=== PATIENT | female | born 1980 | race Caucasian/White ===

== ENCOUNTER 2020-05-31 22:38 | Emergency (ER) | payer SELFPAY ==
--- OUTSIDE RECORDS SUMMARY | 2020-05-31 22:40 | XMS REPORT | Continuity of Care Document ---
:1980 Author Organization [facility] t Address [address] [place] [address] Dr. Roy [address] [place] [id number] Care Team Providers Name Role Phone Unavailable Unavailable Unavailable Problems This patient has no known problems. Allergies, Adverse Reactions, Alerts This patient has no known allergies or adverse reactions. Medications This patient has no known medications. Procedures This patient has no known procedures. Results This patient has no known results.
[2020-05-31] MEDS ORDERED: METOPROLOL TARTRATE 5 MG/5 ML INJ IV ONE (23:15)
[2020-05-31 23:17] LABS: Absolute Lymphocytes (CBC) 2.6 K/uL (0.7-4.9); Basophils % 0.6 % (0-1.3); Hematocrit 34.6 % (36.0-45.0); Lymphocytes % 28.6 % (15.3-44.8); MPV 8.6 fL (7.6-11.3); RBC Red Blood Cell Count 4.75 M/uL (3.86-4.86)
[2020-05-31 23:18] LABS: Protime INR 0.98
[2020-05-31 23:34] LABS: ALT/SGPT 23 U/L (12-78); AST/SGOT 15 U/L (15-37); Albumin 3.6 g/dL (3.4-5.0); Alkaline Phosphatase 88 U/L (45-117); BUN Blood Urea Nitrogen 16 mg/dL (7-18); Bicarbonate 26 mmol/L (21-32); Bilirubin Direct < 0.1 mg/dL (0-0.2); Bilirubin Total 0.2 mg/dL (0.2-1.0); Glucose Level 101 mg/dL (74-106); Magnesium 2.1 mg/dL (1.8-2.4); NT PRO-BNP 128 pg/mL (<125); Potassium 3.5 mmol/L (3.5-5.1); Protein, Total 7.8 g/dL (6.4-8.2); Sodium Level 141 mmol/L (136-145); Troponin (Emerg Dept Use Only) 0.06 ng/mL (0.0-0.045)
[2020-05-31 23:42] LABS: Urine Blood 2+ (NEG); Urine Glucose NEGATIVE (NEG); Urine Protein NEGATIVE (NEG); Urine Specific Gravity 1.025 (1.005-1.030)
[2020-06-01] MEDS ORDERED: METOPROLOL TARTRATE 5 MG/5 ML INJ IV ONE ×2 (00:05→00:21)
--- NOTE | 2020-06-01 02:09 | ER ---
Nurse's Notes [facility] Name: Yas Bay Age: 39 yrs Sex: Female : 1980 Arrival Date: 05/31/2020 Time: 22:39 Bed 20 Private MD: Diagnosis: Chest pain. Headache. Hypertension Presentation: 05/31 22:45 Chief complaint: Patient states: Brook felt dizzy since this morning, It has just been sg getting worse. My blood pressure has been high today, I feel like Im going to pass out, Im just not doing very good. Denies N/V/D/Fever at this time. Coronavirus screen: Client denies travel out of the [place] in the last 14 days. At this time, the client does not indicate any symptoms associated with coronavirus-19. Ebola Screen: Patient negative for fever greater than or equal to 101.5 degrees Fahrenheit, and additional compatible Ebola Virus Disease symptoms Patient denies exposure to infectious person. Patient denies travel to an Ebola-affected area in the 21 days before illness onset. No symptoms or risks identified at this time. Initial Sepsis Screen: Does the patient meet any 2 criteria? No. Patient's initial sepsis screen is negative. Does the patient have a suspected source of infection? No. Patient's initial sepsis screen is negative. Risk Assessment: Do you want to hurt yourself or someone else? Patient reports no desire to harm self or others. Onset of symptoms was May 31, 2020. Care prior to arrival: None. Transition of care: patient was not received from another setting of care. 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 - Social history:: Smoking status: Patient denies any tobacco usage or history of. Screenin:11 Abuse screen: Denies threats or abuse. Denies injuries from another. Nutritional rr5 screening: No deficits noted. Tuberculosis screening: No symptoms or risk factors identified. Fall Risk IV access (20 points). Total Arnold Fall Scale indicates No Risk (0-24 pts). Assessment: 23:00 General: Appears in no apparent distress. uncomfortable, Behavior is calm, cooperative, rr5 appropriate for age. 23:00 Pain: Complains of pain in head Pain currently is 8 out of 10 on a pain scale. Quality rr5 of pain is described as aching, Pain began gradually, Is intermittent. Neuro: Level of Consciousness is awake, alert, obeys commands, Oriented to person, place, time, situation, Reports headache. Cardiovascular: Reports high BP Capillary refill < 3 seconds Patient's skin is warm and dry. Respiratory: Airway is patent Respiratory effort is even, unlabored, Respiratory pattern is regular, symmetrical. GI: No signs and/or symptoms were reported involving the gastrointestinal system. : No signs and/or symptoms were reported regarding the genitourinary system. EENT: No signs and/or symptoms were reported regarding the EENT system. Derm: Skin is intact, is healthy with good turgor, Skin temperature is warm. Musculoskeletal: Capillary refill < 3 seconds, Swelling present in right leg and left leg. 23:55 Reassessment: Patient appears in no apparent distress at this time. awaiting for CT rr5 result. 06/01 00:10 Reassessment: Patient appears in no apparent distress at this time. Patient is alert, rr5 oriented x 3, equal unlabored respirations, skin warm/dry/pink. 01:20 Reassessment: Patient appears in no apparent distress at this time. Patient is alert, rr5 oriented x 3, equal unlabored respirations, skin warm/dry/pink. awaiting for results. 02:25 Reassessment: Patient appears in no apparent distress at this time. Patient is alert, rr5 oriented x 3, equal unlabored respirations, skin warm/dry/pink. BP rechecked after walking to the hallway. ED provider aware with order made and carried out. 02:35 Reassessment: discharge instruction given and explained without complaints made. rr5 Vital Signs: 05/31 22:45 BP 214 / 139; Pulse 86; Resp 19; Temp 99.1; Pulse Ox 99% ; Weight 90.72 kg; Height 5 rr5 ft. 4 in. (162.56 cm); Pain 8/10; 23:41 BP 195 / 115; Pulse 80; Resp 18; Pulse Ox 98% ; rr5 06/01 00:10 BP 179 / 109; Pulse 84; Resp 17; Pulse Ox 99% ; rr5 00:47 BP 160 / 104; Pulse 75; Resp 16; Pulse Ox 99% ; rr5 02:25 BP 175 / 99; Pulse 70; Resp 19; Pulse Ox 99% ; rr5 02:36 BP 169 / 85; Pulse 76; Resp 16; Pulse Ox 98% ; rr5 05/31 22:45 Body Mass Index 34.33 (90.72 kg, 162.56 cm) rr5 ED Course: 05/31 22:39 Patient arrived in ED. am2 22:45 Urbano Cavanaugh MD is Attending Physician. pkl 22:45 Arm band placed on. sg 22:47 Triage completed. sg 22:51 Ravinder Jurado, MARK is Primary Nurse. rr5 23:02 Initial lab(s) drawn, by me, sent to lab. Inserted saline lock: 20 gauge in right jp3 antecubital area, using aseptic technique. Blood collected. Patient maintains SpO2 saturation greater than 95% on room air. 23:04 Bed in low position. Call light in reach. Side rails up X 1. Warm blanket given. Verbal jp3 reassurance given. 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 Pulse ox on. NIBP on. 23:40 Urine collected: clean catch specimen, clear, lucy colored. jp3 23:44 XRAY Chest (1 view) In Process Unspecified. EDMS 06/01 00:00 CT Head Brain wo Cont In Process Unspecified. EDMS 02:32 No provider procedures requiring assistance completed. IV discontinued, intact, rr5 bleeding controlled, No redness/swelling at site. Pressure dressing applied. Administered Medications: 05/31 23:11 Drug: Lopressor 5 mg Route: IVP; Site: left antecubital; rr5 23:50 Drug: Lopressor 5 mg {Note: BP 195/115 mmHg HR 80bpm.} Route: IVP; Site: left rr5 antecubital; 06/01 00:10 Drug: Lopressor 5 mg {Note: bp 179/109 HR 84bpm.} Route: IVP; Site: left antecubital; rr5 01:30 Follow up: Response: No adverse reaction; Blood pressure is lowered rr5 02:31 Drug: Metoprolol TARTRATE (Lopressor) 50 mg Route: PO; rr5 02:36 Follow up: Response: Medication administered at discharge. rr5 Point of Care Testing: Urine : 05/31 23:40 hCG Reading: Negative; Control Reading: Positive; jp3 Outcome: 06/01 02:08 Discharge ordered by . pkl 02:32 Discharged to home ambulatory, with family. rr5 02:32 Condition: stable 02:32 Discharge instructions given to patient, Instructed on discharge instructions, follow up and referral plans. medication usage, Demonstrated understanding of instructions, follow-up care, medications, Prescriptions given X 2. 02:36 Patient left the ED. rr5 Signatures: Dispatcher [employer] EDChemo Velez, RN RN Urbano Hampton MD MD pkl Moreno, Amanda am2 Conrado Evans jp3 Ravinder Jurado, RN RN rr5 Corrections: (The following items were deleted from the chart) 05/31 23:54 23:41 BP 155 / 67; Pulse 80bpm; Resp 18bpm; Pulse Ox 98%; rr5 rr5
--- NOTE | 2020-06-01 02:09 | EDPHYS ---
Physician Documentation [facility] Name: Yas Bay Age: 39 yrs Sex: Female : 1980 Arrival Date: 05/31/2020 Time: 22:39 Bed 20 Private MD: ED Physician Urbano Cavanaugh HPI: 05/31 23:19 This 39 yrs old Female presents to ER via Wheelchair with complaints of High pkl Blood Pressure, Feels like passing out. 23:19 The patient presents with lightheadedness. Onset: The symptoms/episode began/occurred pkl this morning. Associated signs and symptoms: Pertinent positives: headache, palpitations. 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 - Social history:: Smoking status: Patient denies any tobacco usage or history of. ROS: 23:19 Eyes: Negative for injury, pain, redness, and discharge, ENT: Negative for injury, pkl pain, and discharge, Neck: Negative for injury, pain, and swelling. 23:19 Cardiovascular: Positive for chest pain, palpitations. 23:19 Respiratory: Negative for cough, shortness of breath. 23:19 Abdomen/GI: Negative for abdominal pain, nausea, vomiting, and diarrhea. 23:19 Back: Negative for acute changes. 23:19 : Negative for urinary symptoms. 23:19 MS/extremity: Negative for acute changes. 23:19 Skin: Negative for rash. 23:19 Neuro: Positive for dizziness, headache. Exam: 23:19 Head/Face: Normocephalic, atraumatic. Eyes: Pupils equal round and reactive to light, pkl extra-ocular motions intact. Lids and lashes normal. Conjunctiva and sclera are non-icteric and not injected. Cornea within normal limits. Periorbital areas with no swelling, redness, or edema. ENT: Nares patent. No nasal discharge, no septal abnormalities noted. Tympanic membranes are normal and external auditory canals are clear. Oropharynx with no redness, swelling, or masses, exudates, or evidence of obstruction, uvula midline. Mucous membranes moist. Neck: Trachea midline, no thyromegaly or masses palpated, and no cervical lymphadenopathy. Supple, full range of motion without nuchal rigidity, or vertebral point tenderness. No Meningismus. Chest/axilla: Normal chest wall appearance and motion. Nontender with no deformity. No lesions are appreciated. Cardiovascular: Regular rate and rhythm with a normal S1 and S2. No gallops, murmurs, or rubs. Normal PMI, no JVD. No pulse deficits. Respiratory: Lungs have equal breath sounds bilaterally, clear to auscultation and percussion. No rales, rhonchi or wheezes noted. No increased work of breathing, no retractions or nasal flaring. Abdomen/GI: Soft, non-tender, with normal bowel sounds. No distension or tympany. No guarding or rebound. No evidence of tenderness throughout. Back: No spinal tenderness. No costovertebral tenderness. Full range of motion. Skin: Warm, dry with normal turgor. Normal color with no rashes, no lesions, and no evidence of cellulitis. MS/ Extremity: Pulses equal, no cyanosis. Neurovascular intact. Full, normal range of motion. Neuro: Awake and alert, GCS 15, oriented to person, place, time, and situation. Cranial nerves II-XII grossly intact. Motor strength 5/5 in all extremities. Sensory grossly intact. Cerebellar exam normal. Normal gait. Vital Signs: 22:45 BP 214 / 139; Pulse 86; Resp 19; Temp 99.1; Pulse Ox 99% ; Weight 90.72 kg; Height 5 rr5 ft. 4 in. (162.56 cm); Pain 8/10; 23:41 BP 195 / 115; Pulse 80; Resp 18; Pulse Ox 98% ; rr5 06/01 00:10 BP 179 / 109; Pulse 84; Resp 17; Pulse Ox 99% ; rr5 00:47 BP 160 / 104; Pulse 75; Resp 16; Pulse Ox 99% ; rr5 02:25 BP 175 / 99; Pulse 70; Resp 19; Pulse Ox 99% ; rr5 02:36 BP 169 / 85; Pulse 76; Resp 16; Pulse Ox 98% ; rr5 05/31 22:45 Body Mass Index 34.33 (90.72 kg, 162.56 cm) rr5 MDM: 05/31 22:45 Patient medically screened. pkl 06/01 02:03 Data reviewed: vital signs, nurses notes, lab test result(s), EKG, radiologic studies, pkl plain films. ED course: Patient feeling better. Discussed lab, EKG and X' rays results Advised to follow up with PCP in 1 to 2 weeks. Patient understood instructions. 05/31 22:59 Order name: Basic Metabolic Panel; Complete Time: 23:44 pkl 05/31 22:59 Order name: CBC with Diff; Complete Time: 23:44 pkl 05/31 22:59 Order name: LFT's; Complete Time: 23:44 pkl 05/31 22:59 Order name: Magnesium; Complete Time: 23:44 pkl 05/31 22:59 Order name: NT PRO-BNP; Complete Time: 23:44 pkl 05/31 22:59 Order name: PT-INR; Complete Time: 23:44 pkl 05/31 22:59 Order name: Troponin (emerg Dept Use Only); Complete Time: 23:44 pkl 05/31 22:59 Order name: XRAY Chest (1 view) pkl 05/31 22:59 Order name: CT Head Brain wo Cont pkl 05/31 23:39 Order name: Urine Dipstick--Ancillary (enter results); Complete Time: 23:44 tt3 05/31 23:39 Order name: Urine --Ancillary (enter results); Complete Time: 23:44 tt3 06/01 00:53 Order name: Troponin (emerg Dept Use Only); Complete Time: 01:59 pkl 05/31 22:59 Order name: EKG; Complete Time: 23:00 pkl 05/31 22:59 Order name: Cardiac monitoring; Complete Time: 23:11 pkl 05/31 22:59 Order name: EKG - Nurse/Tech; Complete Time: 23:11 pkl 05/31 22:59 Order name: IV Saline Lock; Complete Time: 23:11 pkl 05/31 22:59 Order name: Labs collected and sent; Complete Time: 23:11 pkl 05/31 22:59 Order name: O2 Per Protocol; Complete Time: 23:11 pkl 05/31 22:59 Order name: O2 Sat Monitoring; Complete Time: 23:11 pkl 06/01 00:53 Order name: EKG; Complete Time: 00:54 pkl Administered Medications: 05/31 23:11 Drug: Lopressor 5 mg Route: IVP; Site: left antecubital; rr5 23:50 Drug: Lopressor 5 mg {Note: BP 195/115 mmHg HR 80bpm.} Route: IVP; Site: left rr5 antecubital; 06/01 00:10 Drug: Lopressor 5 mg {Note: bp 179/109 HR 84bpm.} Route: IVP; Site: left antecubital; rr5 01:30 Follow up: Response: No adverse reaction; Blood pressure is lowered rr5 02:31 Drug: Metoprolol TARTRATE (Lopressor) 50 mg Route: PO; rr5 02:36 Follow up: Response: Medication administered at discharge. rr5 Point of Care Testing: Urine : 05/31 23:40 hCG Reading: Negative; Control Reading: Positive; jp3 Disposition: 06/01/20 02:08 Discharged to Home. Impression: Chest pain. Headache. Hypertension. - Condition is Stable. - Prescriptions for Lisinopril 20 mg Oral Tablet - take 1 tablet by ORAL route once daily; 30 tablet. Carvedilol 12.5 mg Oral Tablet - take 1 tablet by ORAL route 2 times per day with food; 60 tablet. - Medication Reconciliation Form, Thank You Letter, Antibiotic Education, Prescription Opioid Use form. - Follow up: Private Physician; When: 10 - 14 days; Reason: Re-evaluation by your physician. - Problem is new. - Symptoms have improved. Signatures: Dispatcher [employer] EDMS Chemo Martinez RN RN sg Lam, Pin, MD MD pkl Ravinder Jurado RN RN rr5 Corrections: (The following items were deleted from the chart) 06/01 02:36 02:08 06/01/2020 02:08 Discharged to Home. Impression: Chest pain. Headache. rr5 Hypertension. Condition is Stable. Forms are Medication Reconciliation Form, Thank You Letter, Antibiotic Education, Prescription Opioid Use. Follow up: Private Physician; When: 10 - 14 days; Reason: Re-evaluation by your physician. Problem is new. Symptoms have improved. pkl
[2020-06-01] MEDS ORDERED: METOPROLOL TAR 50 MG TAB ONE (02:34)
--- NOTE | 2020-06-01 08:27 | RAD REPORT ---
EXAM DESCRIPTION: RAD - Chest Single View - 05/31/2020 11:44 pm CLINICAL HISTORY: Elevated BP Chest pain. COMPARISON: No comparisons FINDINGS: Portable technique limits examination quality. The lungs are grossly clear. The heart is normal in size. No displaced fractures. IMPRESSION: No acute intrathoracic process suspected.
[2020-06-01 09:04] VITALS: TEMP 99.1
[2020-06-01 09:12] VITALS: BP 169/85; O2SAT 98
--- NOTE | 2020-06-01 10:19 | RAD REPORT ---
EXAM DESCRIPTION: Head Brain Wo Cont CLINICAL HISTORY: 39 years Female Dizziness;Headache COMPARISON: None TECHNIQUE: Contiguous axial images of the brain were obtained without the administration of intraven ous contrast.This exam was performed according to our departmental dose-optimization program which in cludes use of Automated Exposure Control, adjustment of the mA and/or kV according to patient size an d/or use of iterative reconstruction technique. DLP: 889 mGy*cm FINDINGS: Brain: No acute intracranial hemorrhage. No extra-axial collection. No mass effect or marshall iation. Mild prominence of the sulci and cisterns. Ventricles: Within normal limits in size. Globes and orbits: No acute abnormality. Bones: No acute osseous finding Paranasal sinuses: Paranasal sinuses are clear. Mastoid air cells: Well pneumatized. Soft tissues: Within normal limits IMPRESSION: No acute intracranial abnormality. Electronically signed by: Madi Ruiz DO 06/01/2020 12:29 AM APARTMENT COMMUNITY ASSISTANT MANAGER Due to temporary technical issues with the PACS/Fluency reporting system, reports are being signed by the in house radiologists without review as a courtesy to insure prompt reporting. The interpreting radiologist is fully responsible for the content of the report.
--- NOTE | 2020-06-01 12:04 | EKG ---
Test Date: 2020-05-31 Test Time: 23:05:13 Fabric Machine Operator: RR MEASUREMENT RESULTS: Intervals: Rate: 73 IN: 124 QRSD: 86 QT: 384 QTc: 423 [place]: P: 30 IN: 124 QRS: 63 T: 22 INTERPRETIVE STATEMENTS: Normal sinus rhythm Normal ECG No previous ECG available for comparison Electronically Signed On 06-01-20 12:03:03 INK BLENDER by Ganesh German
--- NOTE | 2020-06-01 12:04 | EKG ---
Test Date: 2020-06-01 Test Time: 00:57:07 Broadcast Meteorologist: RR MEASUREMENT RESULTS: Intervals: Rate: 70 [place]: 152 QRSD: 84 QT: 396 QTc: 427 [place]: P: 73 [place]: 152 QRS: 66 T: 42 INTERPRETIVE STATEMENTS: Normal sinus rhythm ST abnormality, possible digitalis effect Abnormal ECG Compared to ECG 05/31/2020 23:05:13 ST (T wave) deviation now present Electronically Signed On 06-01-20 12:03:02 SAW OFFBEARER by Ganesh German
== END 2020-06-01 02:36 | disposition home or self-care (01) ==
LOC: ER 22:38
DX: I10 Essential (primary) hypertension (principal); R07.9 Chest pain, unspecified
CPT/HCPCS: 36415; 70450; 71045; 80048; 80076; 81003; 81025; 83735; 83880; 84484; 85025; 85610; 93005; 96374; 99285

== ENCOUNTER 2020-10-15 21:05 | Emergency (ER) | payer SELFPAY ==
--- OUTSIDE RECORDS SUMMARY | 2020-10-15 21:07 | XMS REPORT | Continuity of Care Document ---
:1980 Author Organization [facility] t Address [address] [place] [address] Dr. Roy [address] [place] [id number] Care Team Providers Name Role Phone Unavailable Unavailable Unavailable Problems This patient has no known problems. Allergies, Adverse Reactions, Alerts This patient has no known allergies or adverse reactions. Medications This patient has no known medications. Procedures This patient has no known procedures. Results This patient has no known results.
[2020-10-15 21:56] LABS: Absolute Lymphocytes (CBC) 2.7 K/uL (0.7-4.9); Basophils % 0.7 % (0-1.3); Hematocrit 33.1 % (36.0-45.0); Lymphocytes % 28.6 % (15.3-44.8); MPV 8.5 fL (7.6-11.3); RBC Red Blood Cell Count 4.54 M/uL (3.86-4.86)
[2020-10-15] MEDS ORDERED: LABETALOL 20 MG/4ML SYRINGE IV ONE (22:06)
[2020-10-15] MEDS ORDERED: NA CHLORIDE 0.9% 100 ML ONE (22:06)
[2020-10-15 22:11] LABS: ALT/SGPT 27 U/L (12-78); AST/SGOT 12 U/L (15-37); Albumin 3.4 g/dL (3.4-5.0); Alkaline Phosphatase 79 U/L (45-117); BUN Blood Urea Nitrogen 16 mg/dL (7-18); Bicarbonate 24 mmol/L (21-32); Bilirubin Direct < 0.1 mg/dL (0-0.2); Bilirubin Total 0.1 mg/dL (0.2-1.0); Glucose Level 96 mg/dL (74-106); Magnesium 1.9 mg/dL (1.8-2.4); NT PRO-BNP 111 pg/mL (<125); Potassium 3.6 mmol/L (3.5-5.1); Protein, Total 7.5 g/dL (6.4-8.2); Sodium Level 139 mmol/L (136-145); Troponin (Emerg Dept Use Only) < 0.02 ng/mL (0.0-0.045)
[2020-10-15 22:12] LABS: Protime INR 1.02
[2020-10-15 22:20] LABS: Barbiturates NEGATIVE (NEGATIVE); Benzodiazepines NEGATIVE (NEGATIVE); Cocaine NEGATIVE (NEGATIVE); METHAMPHETAM NEGATIVE (NEGATIVE); Methadone NEGATIVE (NEGATIVE); Opiates NEGATIVE (NEGATIVE); Phencyclidine NEGATIVE (NEGATIVE); THC Cannibis NEGATIVE (NEGATIVE)
[2020-10-15 22:21] LABS: Urine Blood NEGATIVE (Negative); Urine Glucose NEGATIVE (Negative); Urine Protein NEGATIVE (NEG); Urine Specific Gravity >1.030 (1.005-1.030)
[2020-10-15] MEDS ORDERED: ASPIRIN 81 MG CHEWABLE TABLET ONE (23:23)
[2020-10-15] MEDS ORDERED: lisinopriL 20 MG TAB ONE (23:23)
[2020-10-15] MEDS ORDERED: HYDRALAZINE HCL 20 MG/ML VIAL ONE (23:52)
[2020-10-15] MEDS ORDERED: NA CHLORIDE 0.9% 1,000 ML ONE (23:52)
--- NOTE | 2020-10-16 01:17 | EDPHYS ---
Physician Documentation [facility] Name: Yas Bay Age: 39 yrs Sex: Female : 1980 Arrival Date: 10/15/2020 Time: 21:08 Bed 6 Private MD: ED Physician Nat Kwok HPI: 10/15 21:40 This 39 yrs old Female presents to ER via Ambulatory with complaints of High cp Blood Pressure. 21:40 The patient has elevated blood pressure and discovered this at home, with a home device.cp 21:40 Onset: The symptoms/episode began/occurred gradually, and became worse today. cp Associated signs and symptoms: Pertinent positives: chest pain, headache, tingling in hands and feet, shortness of breath. Severity of symptoms: At its worst the blood pressure was 220 mm Hg. Patient reports history of hypertension. Not currently taking any medications due to no family physician and/or insurance. Has been prescribed blood pressure medications from ED in the past. 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 - Social history:: Smoking status: Patient reports the use of cigarette tobacco products, denies chronic smoking, but will smoke occasionally. ROS: 21:44 Constitutional: Negative for body aches, chills, fever, poor PO intake. cp 21:44 Eyes: Negative for injury, pain, redness, and discharge. cp 21:44 ENT: Negative for ear pain. 21:44 Cardiovascular: Positive for chest pain, Negative for edema, palpitations. cp 21:44 Respiratory: Negative for cough, shortness of breath, wheezing. cp 21:44 Neuro: Positive for headache, Negative for altered mental status, syncope, weakness. 21:44 All other systems are negative. Exam: 21:46 ECG was reviewed by the Attending Physician. cp 21:50 Constitutional: The patient appears in no acute distress, alert, awake, cp non-diaphoretic, non-toxic, well developed, well nourished, obese. 21:50 Head/Face: Normocephalic, atraumatic. cp 21:50 Eyes: Periorbital structures: appear normal, Pupils: equal, round, and reactive to light and accomodation, Extraocular movements: intact throughout, Conjunctiva: normal, no exudate, no injection, Sclera: no appreciated abnormality, Lids and lashes: appear normal, bilaterally. 21:50 ENT: External ear(s): are unremarkable, Nose: is normal, Mouth: Lips: moist, Oral mucosa: moist, Posterior pharynx: Airway: no evidence of obstruction, patent. 21:50 Neck: ROM/movement: is normal, is supple, no range of motions limitations, no meningismus. 21:50 Chest/axilla: Inspection: normal, Palpation: is normal, no crepitus, no tenderness. 21:50 Cardiovascular: Rate: normal, Rhythm: regular, Heart sounds: murmur, not appreciated, cp Edema: is not appreciated. 21:50 Respiratory: the patient does not display signs of respiratory distress, Respirations: cp normal, no use of accessory muscles, no retractions, labored breathing, is not present, Breath sounds: are clear throughout, no decreased breath sounds. 21:50 Abdomen/GI: Inspection: abdomen appears normal, Palpation: abdomen is soft and non-tender, in all quadrants, rebound tenderness, is not appreciated, voluntary guarding, is not appreciated, involuntary guarding, is not appreciated. 21:50 Back: pain, is absent, ROM is normal. Vital Signs: 21:19 BP 211 / 126; Pulse 95; Resp 16; Temp 99.3; Pulse Ox 100% on R/A; Weight 90.72 kg; sg Height 5 ft. 3 in. (160.02 cm); 21:22 BP 211 / 126; Pulse 90; Resp 18; Temp 99.3; Pulse Ox 100% ; Weight 90.72 kg; Height 5 ll1 ft. 3 in. (160.02 cm); 22:00 BP 178 / 106; Pulse 75; Resp 16; Pulse Ox 100% on R/A; rv 23:00 BP 162 / 108; Pulse 72; Resp 16; Pulse Ox 100% ; rv 23:30 BP 170 / 109; Pulse 72; Resp 16; Pulse Ox 100% ; rv 10/16 00:53 BP 123 / 64; Pulse 92; Resp 18; Pulse Ox 100% on R/A; mg2 10/15 21:22 Body Mass Index 35.43 (90.72 kg, 160.02 cm) ll1 MDM: 10/15 21:24 Patient medically screened. cp 22:00 Differential diagnosis: hypertensive crisis, Malignant HTN, CVA, intracerebral cp hemorrhage. 10/16 01:07 Data reviewed: vital signs, nurses notes, lab test result(s), EKG, radiologic studies, cp CT scan, plain films. 01:07 Test interpretation: by ED physician or midlevel provider: ECG, chest xray negative for cp infiltrates. Counseling: I had a detailed discussion with the patient and/or guardian regarding: the historical points, exam findings, and any diagnostic results supporting the discharge/admit diagnosis, the presence of at least one elevated blood pressure reading (>120/80) during this emergency department visit, lab results, radiology results, the need for outpatient follow up, for definitive care, a family practitioner, to return to the emergency department if symptoms worsen or persist or if there are any questions or concerns that arise at home. Response to treatment: the patient's symptoms have markedly improved after treatment. 10/15 21:31 Order name: Basic Metabolic Panel; Complete Time: 22:21 mg2 10/15 22:54 Interpretation: Normal except: CL 108; CA 8.3. cp 10/15 21:31 Order name: CBC with Diff; Complete Time: 22:21 mg2 10/15 22:21 Interpretation: Normal except: HGB 10.8; HCT 33.1; MCV 72.9; MCH 23.8; RDW 17.1. cp 10/15 21:31 Order name: LFT's; Complete Time: 22:21 mg2 10/15 22:22 Interpretation: Normal except: AST 12; BILIT 0.1; GLOB 4.1; A/G 0.8. cp 10/15 21:31 Order name: Magnesium; Complete Time: 22:21 mg2 10/15 21:31 Order name: NT PRO-BNP; Complete Time: 22:21 mg2 10/15 21:31 Order name: PT-INR; Complete Time: 22:21 mg2 10/15 21:31 Order name: Troponin (emerg Dept Use Only); Complete Time: 22:21 mg2 10/15 23:28 Interpretation: Within normal limits: TROPED < 0.02. cp 10/15 21:31 Order name: XRAY Chest (1 view) mg2 10/15 21:31 Order name: EKG; Complete Time: 21:32 mg2 10/15 21:31 Order name: Cardiac monitoring; Complete Time: 21:40 mg2 10/15 21:31 Order name: EKG - Nurse/Tech; Complete Time: 21:40 mg2 10/15 21:31 Order name: IV Saline Lock; Complete Time: 21:40 mg2 10/15 21:32 Order name: EKG; Complete Time: 21:33 cp 10/15 21:32 Order name: UDS; Complete Time: 22:22 cp 10/15 21:32 Order name: CT Head Brain wo Cont cp 10/15 22:18 Order name: Urine Dipstick--Ancillary (enter results); Complete Time: 22:22 mw2 10/16 00:05 Order name: Troponin I; Complete Time: 01:04 cp 10/16 01:04 Interpretation: TROP < 0.02; Reviewed. cp 10/15 21:31 Order name: Labs collected and sent; Complete Time: 21:40 mg2 10/15 21:31 Order name: O2 Per Protocol; Complete Time: 21:40 mg2 10/15 21:31 Order name: O2 Sat Monitoring; Complete Time: 23:09 mg2 10/15 21:32 Order name: Cardiac monitoring; Complete Time: 21:44 cp 10/15 21:32 Order name: EKG - Nurse/Tech; Complete Time: 21:44 cp 10/15 21:32 Order name: IV Saline Lock; Complete Time: 21:47 cp 10/15 21:32 Order name: Labs collected and sent; Complete Time: 21:47 cp 10/15 21:32 Order name: O2 Per Protocol; Complete Time: 21:47 cp 10/15 21:32 Order name: O2 Sat Monitoring; Complete Time: 21:47 cp 10/15 21:32 Order name: Urine Test (obtain specimen); Complete Time: 21:54 cp 10/15 21:32 Order name: Urine Dipstick-Ancillary (obtain specimen); Complete Time: 21:54 cp 10/15 23:27 Order name: Blood Pressure Recheck; Complete Time: 23:29 cp EC/26 21:46 Rate is 78 beats/min. Rhythm is regular. ND interval is normal. QRS interval is normal. cp QT interval is normal. T waves are Inverted in lead aVR. Interpreted by me. Reviewed by me. Administered Medications: 21:57 Drug: Trandate 20 mg Route: IVP; Site: left antecubital; rv 10/16 01:42 Follow up: Response: No adverse reaction [facility] 10/15 23:08 Drug: Aspirin Chewable Tablet 324 mg Route: PO; 10/16 01:42 Follow up: Response: No adverse reaction [facility] 10/15 23:09 Drug: Lisinopril 20 mg Route: PO; 10/16 01:42 Follow up: Response: No adverse reaction [facility] 10/15 23:38 Drug: hydrALAZINE 5 mg Route: IV; Rate: calculated rate; Site: left antecubital; rv 10/16 01:41 Follow up: Response: No adverse reaction; IV Status: Completed infusion [facility] 10/15 23:39 Drug: NS 0.9% 1000 ml Route: IV; Rate: 1 bolus; Site: left antecubital; rv 10/16 01:42 Follow up: Response: No adverse reaction; IV Status: Completed infusion; IV Intake: mg2 1000ml Disposition: 05:47 Co-signature as Attending Physician, Nat Kwok MD. ma2 Disposition: 10/16/20 01:15 Discharged to Home. Impression: Hypertensive heart disease, Chest pain, unspecified, Headache. - Condition is Stable. - Discharge Instructions: Nonspecific Chest Pain, Hypertension, How to Take Your Blood Pressure, [place], Aspirin and Your Heart, Managing Your Hypertension. - Prescriptions for Lisinopril 20 mg Oral Tablet - take 1 tablet by ORAL route once daily; 20 tablet. Carvedilol 12.5 mg Oral Tablet - take 1 tablet by ORAL route 2 times per day with food; 60 tablet. - Medication Reconciliation Form, Thank You Letter, Antibiotic Education, Prescription Opioid Use form. - Follow up: Private Physician; When: 2 - 3 days; Reason: Recheck today's complaints. Signatures: Dispatcher [employer] EDMS Niko Mora PA PA cp Alzahri, Mohammad, MD MD ma2 Victor M Vasquez RN RN mg2 Brent Kirkland RN RN rv Nas Love RN RN ll1 Corrections: (The following items were deleted from the chart) 10/15 21:48 21:33 Chest Single View+RAD.RAD.BRZ ordered. EDMS EDMS 22:54 22:21 Normal except: CL 108. cp cp 10/16 01:42 01:15 10/16/2020 01:15 Discharged to Home. Impression: Hypertensive heart disease; mg2 Chest pain, unspecified; Headache. Condition is Stable. Discharge Instructions: Hypertension, Managing Your Hypertension. Prescriptions for Lisinopril 20 mg Oral Tablet - take 1 tablet by ORAL route once daily; 20 tablet, Carvedilol 12.5 mg Oral Tablet - take 1 tablet by ORAL route 2 times per day with food; 60 tablet. and Forms are Medication Reconciliation Form, Thank You Letter, Antibiotic Education, Prescription Opioid Use. Follow up: Private Physician; When: 2 - 3 days; Reason: Recheck today's complaints. cp
--- NOTE | 2020-10-16 01:43 | ER ---
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 L ll1 arm pain. Both hands/feet feel tingly. States the last time this happened she had a heart attack. Coronavirus screen: Client denies travel out of the [place] in the last 14 days. At this time, the client does not indicate any symptoms associated with coronavirus-19. Ebola Screen: Patient denies travel to an Ebola-affected area in the 21 days before illness onset. Initial Sepsis Screen: Does the patient meet any 2 criteria? No. Patient's initial sepsis screen is negative. Does the patient have a suspected source of infection? No. Patient's initial sepsis screen is negative. Risk Assessment: Do you want to hurt yourself or someone else? Patient reports no desire to harm self or others. Onset of symptoms was October 15, 2020. 21:22 Method Of Arrival: Ambulatory 1 21:22 Acuity: CRUZ 2 ll1 DIRECTOR FIXED INCOME: 10/16 01:41 lmp unknown mg2 Historical: - Allergies: 10/15 21:25 No Known Allergies; ll1 - PMHx: 21:25 Hypertension; Myocardial infarction; ll1 - Immunization history:: Flu vaccine is not up to date. - Social history:: Smoking status: Patient reports the use of cigarette tobacco products, denies chronic smoking, but will smoke occasionally. Screenin:41 Abuse screen: Denies threats or abuse. Denies injuries from another. Nutritional rv screening: No deficits noted. Tuberculosis screening: No symptoms or risk factors identified. Fall Risk None identified. Assessment: 21:40 General: Appears uncomfortable, Behavior is calm, cooperative. Pain: Complains of pain rv in chest. Neuro: Level of Consciousness is awake, alert, obeys commands, Oriented to person, place, time, situation. Cardiovascular: Patient's skin is warm and dry. Rhythm is regular. Respiratory: Airway is patent Respiratory effort is even, unlabored. Derm: Skin is intact. 10/16 00:53 Reassessment: Patient appears in no apparent distress at this time. Patient and/or mg2 family updated on plan of care and expected duration. Pain level reassessed. Patient is alert, oriented x 3, equal unlabored respirations, skin warm/dry/pink. Vital Signs: 10/15 21:19 BP 211 / 126; Pulse 95; Resp 16; Temp 99.3; Pulse Ox 100% on R/A; Weight 90.72 kg; sg Height 5 ft. 3 in. (160.02 cm); 21:22 BP 211 / 126; Pulse 90; Resp 18; Temp 99.3; Pulse Ox 100% ; Weight 90.72 kg; Height 5 ll1 ft. 3 in. (160.02 cm); 22:00 BP 178 / 106; Pulse 75; Resp 16; Pulse Ox 100% on R/A; rv 23:00 BP 162 / 108; Pulse 72; Resp 16; Pulse Ox 100% ; rv 23:30 BP 170 / 109; Pulse 72; Resp 16; Pulse Ox 100% ; rv 10/16 00:53 BP 123 / 64; Pulse 92; Resp 18; Pulse Ox 100% on R/A; mg2 10/15 21:22 Body Mass Index 35.43 (90.72 kg, 160.02 cm) ll1 ED Course: 10/15 21:08 Patient arrived in ED. cl3 21:22 Arm band placed on Patient placed in an exam room, on a stretcher. ll1 21:23 Niko Mora PA is PHCP. cp 21:23 Nat Kwok MD is Attending Physician. cp 21:24 Triage completed. ll1 21:30 Brent Kirkland, MARK is Primary Nurse. rv 21:40 Initial lab(s) drawn, by dc, sent to lab. Inserted saline lock: 20 gauge in left rv antecubital area, using aseptic technique. Blood collected. 21:41 Patient has correct armband on for positive identification. infection prevention coordinator on. Pulse rv ox on. NIBP on. 21:50 XRAY Chest (1 view) In Process Unspecified. EDMS 22:18 CT Head Brain wo Cont In Process Unspecified. EDMS 10/16 01:41 No provider procedures requiring assistance completed. IV discontinued, intact, mg2 bleeding controlled, No redness/swelling at site. Pressure dressing applied. Administered Medications: 10/15 21:57 Drug: Trandate 20 mg Route: IVP; Site: left antecubital; rv 10/16 01:42 Follow up: Response: No adverse reaction mg2 10/15 23:08 Drug: Aspirin Chewable Tablet 324 mg Route: PO; rv 10/16 01:42 Follow up: Response: No adverse reaction mg2 10/15 23:09 Drug: Lisinopril 20 mg Route: PO; rv 10/16 01:42 Follow up: Response: No adverse reaction mg2 10/15 23:38 Drug: hydrALAZINE 5 mg Route: IV; Rate: calculated rate; Site: left antecubital; rv 10/16 01:41 Follow up: Response: No adverse reaction; IV Status: Completed infusion mg2 10/15 23:39 Drug: NS 0.9% 1000 ml Route: IV; Rate: 1 bolus; Site: left antecubital; rv 10/16 01:42 Follow up: Response: No adverse reaction; IV Status: Completed infusion; IV Intake: mg2 1000ml Intake: 01:42 IV: 1000ml; Total: 1000ml. mg2 Outcome: 01:15 Discharge ordered by . cp 01:41 Discharged to home ambulatory. mg2 01:41 Condition: stable 01:41 Discharge instructions given to patient, Instructed on discharge instructions, follow up and referral plans. medication usage, Demonstrated understanding of instructions, follow-up care, medications, Prescriptions given X 2. 01:42 Patient left the ED. mg2 Signatures: Dispatcher [employer] EDMS Chemo Martinez RN Niko Mo PA PA cp Victor M Vasquez RN RN mg2 Brent Kirkland RN RN rv Nora Love cl3 Nas Love RN RN ll1
--- NOTE | 2020-10-16 09:18 | RAD REPORT ---
EXAM DESCRIPTION: Mala Single View10/15/2020 9:52 pm CLINICAL HISTORY: Chest pain COMPARISON: 2019 FINDINGS: The lungs appear clear of acute infiltrate. The heart is normal size IMPRESSION: No acute abnormalities displayed
--- NOTE | 2020-10-16 11:12 | EKG ---
Test Date: 2020-10-15 Test Time: 21:36:34 Senior Counsel: LUCIEN MEASUREMENT RESULTS: Intervals: Rate: 78 TX: 132 QRSD: 82 QT: 378 QTc: 430 [place]: P: 58 TX: 132 QRS: 59 T: 34 INTERPRETIVE STATEMENTS: Normal sinus rhythm Cannot rule out Anterior infarct, age undetermined Abnormal ECG Compared to ECG 06/01/2020 00:57:07 Myocardial infarct finding now present ST (T wave) deviation no longer present Electronically Signed On 10-16-20 11:11:06 CDT by Ganesh German
[2020-10-16 18:08] VITALS: TEMP 99.3; O2SAT 100
[2020-10-16 18:16] VITALS: BP 123/64
--- NOTE | 2020-10-16 18:52 | RAD REPORT ---
EXAM DESCRIPTION: CT - Head Brain Wo Cont - 10/16/2020 6:33 am CLINICAL HISTORY: 39-year-old female with hypertension and headache. COMPARISON: 05/31/2020. TECHNIQUE: CT brain without contrast. This exam was performed according to our departmental dose opt imization program which includes use of automated exposure control, adjustment of the mA and/or kV ac cording to patient size and/or use of iterative reconstruction technique. FINDINGS: The ventricles, sulci, and cisterns are within normal limits. The aparicio-white matter diff erentiation is preserved. There is no mass effect, midline shift, intra- or extra-axial fluid colle ction/acute hemorrhage. The osseous structures are unremarkable. The paranasal sinuses and mastoi d air cells are clear. IMPRESSION: No acute intracranial abnormalities. Electronically signed by: Louise Jansen MD 10/15/2020 10:42 PM CDT Due to temporary technical issues with the PACS/Fluency reporting system, reports are being signed by the in house radiologists without review as a courtesy to insure prompt reporting. The interpreting radiologist is fully responsible for the content of the report.
== END 2020-10-16 01:42 | disposition home or self-care (01) ==
LOC: ER 21:05
DX: I11.9 Hypertensive heart disease without heart failure (principal); R51.9 Headache, unspecified; I10 Essential (primary) hypertension; F17.210 Nicotine dependence, cigarettes, uncomplicated
CPT/HCPCS: 36415; 70450; 71045; 80048; 80076; 80307; 81003; 83735; 83880; 84484; 85025; 85610; 93005; 96365; 96366; 96375; 99284; J0360; J7030

== ENCOUNTER 2021-07-22 15:27 | Emergency (ER) | payer SELFPAY ==
--- OUTSIDE RECORDS SUMMARY | 2021-07-22 15:30 | XMS REPORT | Continuity of Care Document ---
:1980 Author Organization [facility] t Address [address] [place] [address] [address] [place] [address] Care Team Providers Name Role Phone PCP, DOES NOT HAVE A Primary Care Physician Unavailable Laine KOCH Attending Clinician Unavailable Laine KOCH Admitting Clinician Unavailable Problems This patient has no known problems. Allergies, Adverse Reactions, Alerts Allergy Allergy Status Severity Reaction(s) Onset Inactive Treating Comm ents Source Name Type Date Date Clinician NO KNOWN Drug Active [facility] CARLOS [facility] Medications This patient has no known medications. Procedures This patient has no known procedures. Encounters Start End Encounter Admission Attending Care Care Encounter Source Date/Time Date/Time Type Type Clinicians Facility Department ID 2019-07-31 2019-07-31 Emergency X LANDON KOCH ERT [id number] [facility] 18:23:56 20:48:[address] [facility] Results This patient has no known results.
--- NOTE | 2021-07-22 16:48 | RAD REPORT ---
EXAM DESCRIPTION: RAD - Chest Pa And Lat (2 Views) - 07/22/2021 4:14 pm CLINICAL HISTORY: Cough;Dyspnea COMPARISON: October 15 TECHNIQUE: Frontal and lateral views of the chest were obtained. FINDINGS: The lungs are clear. Interstitial pattern matches comparison. Heart size is normal and ce ntral vasculature is within normal limits. No pleural effusion or pneumothorax seen. No acute bony finding noted. No aortic abnormality. IMPRESSION: No acute cardiopulmonary process. No significant change from comparison study.
[2021-07-22] MEDS ORDERED: cloNIDine HCL 0.1 MG TAB ONE (17:25)
[2021-07-22] MEDS ORDERED: IBUPROFEN 400 MG TAB ONE (17:26)
[2021-07-22 17:50] LABS: Absolute Lymphocytes (CBC) 0.4 K/uL (0.7-4.9); Hematocrit 30.6 % (36.0-45.0); Lymphocytes % 4.4 % (15.3-44.8); MPV 8.3 fL (7.6-11.3); RBC Red Blood Cell Count 4.41 M/uL (3.86-4.86)
[2021-07-22 18:00] LABS: Potassium 3.8 mmol/L (3.5-5.1); Troponin (Emerg Dept Use Only) 0.04 ng/mL (0.0-0.045)
[2021-07-22 19:24] LABS: SARS-COV-2 RT PCR POSITIVE (NEGATIVE)
[2021-07-22 19:32] LABS: Blood Morphology Comment NOTED (NOT SEEN); Platelet Estimate ADEQ; White Blood Cell Scan OK (OK)
--- NOTE | 2021-07-22 20:20 | ER ---
Nurse's Notes [facility] Name: Yas Bay Age: 40 yrs Sex: Female : 1980 Arrival Date: 07/22/2021 Time: 15:29 Bed DIS4 Private MD: Diagnosis: Coronavirus infection, unspecified;Essential (primary) hypertension Presentation: 07/22 15:46 Chief complaint: Patient states: cough, fever, chills, body aches and SOB "I feel like eo2 I can't breathe" onset today. Pt denies chest pain, states "I can't catch my breath when I'm talking". Coronavirus screen: Vaccine status: Patient reports being unvaccinated. Client denies travel out of the [place] in the last 14 days. Ebola Screen: Patient negative for fever greater than or equal to 101.5 degrees Fahrenheit, and additional compatible Ebola Virus Disease symptoms Patient denies exposure to infectious person. Patient denies travel to an Ebola-affected area in the 21 days before illness onset. No symptoms or risks identified at this time. Initial Sepsis Screen: Does the patient meet any 2 criteria? No. Patient's initial sepsis screen is negative. Does the patient have a suspected source of infection? No. Patient's initial sepsis screen is negative. Risk Assessment: Do you want to hurt yourself or someone else? Patient reports no desire to harm self or others. Onset of symptoms was July 22, 2021. 15:46 Method Of Arrival: Ambulatory eo2 15:46 Acuity: CRUZ 3 eo2 Triage Assessment: 15:52 General: Appears uncomfortable, Behavior is calm, cooperative. Pain: Complains of pain eo2 in headache and neck pain, "my body". Cardiovascular: Reports shortness of breath, Denies chest pain. Historical: - Allergies: 15:52 No Known Allergies; eo2 - PMHx: 15:52 Hypertension; Myocardial infarction; eo2 - Immunization history:: Adult Immunizations up to date, Client reports having NOT received the Covid vaccine. Flu vaccine is not up to date. - Social history:: Smoking status: Patient reports the use of cigarette tobacco products, 1 pack/week, Patient uses alcohol, occasionally. Screenin:00 Abuse screen: Denies threats or abuse. Nutritional screening: No deficits noted. bb Tuberculosis screening: No symptoms or risk factors identified. Fall Risk None identified. Assessment: 20:00 General: Appears in no apparent distress. Behavior is calm, cooperative. General: pt bb seen by this RN at discharge. Neuro: Level of Consciousness is awake, alert, obeys commands, Oriented to person, place, time, situation. Vital Signs: 15:46 BP 179 / 121; Pulse 117; Resp 17; Temp 100.3; Pulse Ox 100% ; Weight 90.72 kg; Height 5 eo2 ft. 3 in. (160.02 cm); Pain 9/10; 15:56 BP 172 / 116; Pulse 109; Resp 17; Pulse Ox 100% ; eo2 18:38 Pulse 95; Resp 16 S; Pulse Ox 98% on R/A; mb4 18:43 Temp 99.2(O); bp 20:54 BP 141 / 78; Pulse 95; Resp 18; Temp 97.9; Pulse Ox 98% on R/A; tt3 15:46 Body Mass Index 35.43 (90.72 kg, 160.02 cm) eo2 15:46 "my head hurts so bad, my neck is so stiff" per pt eo2 ED Course: 15:29 Patient arrived in ED. ds1 15:49 [facility]tr[facility]C [facility] kb 15:49 Jaylen Arias MD is Attending Physician. kb 15:52 Triage completed. eo2 16:14 Chest Pa And Lat (2 Views) XRAY In Process Unspecified. EDMS 17:38 Initial lab(s) drawn, by me, sent to lab. COVID swab sent to lab. Flu and/or RSV swab mb4 sent to lab. Inserted 22G LAC. blood collected. IV removed due to infiltration. 17:40 Basic Metabolic Panel Sent. mb4 17:40 CBC with Automated Diff Sent. mb4 17:40 Troponin (Emerg Dept Use Only) Sent. mb4 17:40 CBC with Diff Sent. mb4 17:40 Basic Metabolic Panel Sent. mb4 17:40 Troponin (emerg Dept Use Only) Sent. mb4 17:44 EKG done, by ED staff, reviewed by Radha MAST. dh3 20:00 No provider procedures requiring assistance completed. Patient did not have IV access bb during this emergency room visit. Patient maintains SpO2 saturation greater than 95% on room air. 20:00 Patient has correct armband on for positive identification. bb Administered Medications: 17:28 Drug: Ibuprofen 800 mg Route: PO; eo2 19:00 Follow up: Response: No adverse reaction eo2 17:28 Drug: cloNIDine 0.2 mg Route: PO; eo2 19:00 Follow up: Response: No adverse reaction eo2 Outcome: 20:00 Discharged to home ambulatory. bb 20:00 Condition: stable 20:00 Discharge instructions given to patient, Instructed on discharge instructions, follow up and referral plans. Demonstrated understanding of instructions, follow-up care. 20:19 Discharge ordered by . kb 21:28 Patient left the ED. bb Signatures: Dispatcher [employer] EDMS Radha Beltran, TROLLEY COACH DRIVER-C TROLLEY COACH DRIVER-Anuelb Nisreen Winslow ds1 Heather Mejía, RN RN bb Vanessa Luis dh3 Niles Lal RN RN bp Tamia French mb4 Bogdan Gilbert tt3 Cher Nobles RN RN eo2 Corrections: (The following items were deleted from the chart) 18:15 17:40 Influenza Screen (A \\T\\ B)+BA.LAB.BRZ drawn and sent. mb4 EDMS 18:16 17:40 CORONAVIRUS+MR.LAB.BRZ drawn and sent. mb4 EDMS
--- NOTE | 2021-07-22 20:20 | EDPHYS ---
Physician Documentation [facility] Name: Yas Bay Age: 40 yrs Sex: Female : 1980 Arrival Date: 07/22/2021 Time: 15:29 Bed DIS4 Private MD: ED Physician Jaylen Arias HPI: 07/22 15:50 This 40 yrs old Female presents to ER via Unassigned with complaints of Chest Pain, kb Fever, Shortness Of Breath. 15:50 The patient or guardian reports cough, that is intermittent, described as mild, flu kb symptoms, low-grade fever, myalgias. Onset: The symptoms/episode began/occurred today. Severity of symptoms: At their worst the symptoms were moderate, in the emergency department the symptoms are unchanged. Modifying factors: The symptoms are alleviated by nothing, the symptoms are aggravated by nothing. Associated signs and symptoms: Pertinent positives: fever, Pertinent negatives: chest pain, diarrhea, ear ache, nausea, rhinorrhea, sore throat, vomiting. The patient has not experienced similar symptoms in the past. The patient has not recently seen a physician. Pt reports fever, chills, shortness of breath, cough and headache that started today. Denies chest pain. States it just feels like she cannot take a deep breath. Historical: - Allergies: 15:52 No Known Allergies; eo2 - PMHx: 15:52 Hypertension; Myocardial infarction; eo2 - Immunization history:: Adult Immunizations up to date, Client reports having NOT received the Covid vaccine. Flu vaccine is not up to date. - Social history:: Smoking status: Patient reports the use of cigarette tobacco products, 1 pack/week, Patient uses alcohol, occasionally. ROS: 15:52 Cardiovascular: Negative for chest pain, palpitations, and edema. kb 15:52 Constitutional: Positive for body aches, chills, fatigue, fever, malaise. 15:52 Respiratory: Positive for cough, shortness of breath, Negative for dyspnea on exertion, hemoptysis, orthopnea, pleurisy, sputum production, wheezing. 15:52 Neuro: Positive for headache. 15:52 All other systems are negative. Exam: 15:52 Constitutional: This is a well developed, well nourished patient who is awake, alert, kb and in no acute distress. Head/Face: Normocephalic, atraumatic. ENT: Moist Mucous membranes Cardiovascular: Regular rate and rhythm with a normal S1 and S2. No gallops, murmurs, or rubs. No pulse deficits. Respiratory: Respirations even and unlabored. No increased work of breathing. Talking in full sentences Skin: Warm, dry with normal turgor. Normal color. MS/ Extremity: Pulses equal, no cyanosis. Neurovascular intact. Full, normal range of motion. Neuro: Awake and alert, GCS 15, oriented to person, place, time, and situation. Moves all extremities. Normal gait. Psych: Awake, alert, with orientation to person, place and time. Behavior, mood, and affect are within normal limits. 17:44 ECG was reviewed by the Attending Physician. kb Vital Signs: 15:46 BP 179 / 121; Pulse 117; Resp 17; Temp 100.3; Pulse Ox 100% ; Weight 90.72 kg; Height 5 eo2 ft. 3 in. (160.02 cm); Pain 9/10; 15:56 BP 172 / 116; Pulse 109; Resp 17; Pulse Ox 100% ; eo2 18:38 Pulse 95; Resp 16 S; Pulse Ox 98% on R/A; mb4 18:43 Temp 99.2(O); bp 20:54 BP 141 / 78; Pulse 95; Resp 18; Temp 97.9; Pulse Ox 98% on R/A; tt3 15:46 Body Mass Index 35.43 (90.72 kg, 160.02 cm) eo2 15:46 "my head hurts so bad, my neck is so stiff" per pt eo2 MDM: 15:52 Data reviewed: vital signs, nurses notes. Data interpreted: Pulse oximetry: on room air kb is 100 %. Interpretation: normal. 15:53 Patient medically screened. kb 20:19 Counseling: I had a detailed discussion with the patient and/or guardian regarding: the kb historical points, exam findings, and any diagnostic results supporting the discharge/admit diagnosis, lab results, radiology results, the need for outpatient follow up, a family practitioner, to return to the emergency department if symptoms worsen or persist or if there are any questions or concerns that arise at home. 07/22 16:24 Order name: CBC with Diff kb 07/22 16:24 Order name: Basic Metabolic Panel kb 07/22 16:24 Order name: Troponin (emerg Dept Use Only) kb 07/22 16:24 Order name: CBC with Automated Diff; Complete Time: 19:42 EDMS 07/22 15:50 Order name: Chest Pa And Lat (2 Views) XRAY; Complete Time: 16:52 kb 07/22 16:24 Order name: EKG; Complete Time: 16:25 kb 07/22 16:24 Order name: Basic Metabolic Panel; Complete Time: 18:03 EDMS 07/22 16:24 Order name: Troponin (Emerg Dept Use Only); Complete Time: 18:03 EDMS 07/22 18:16 Order name: COVID-19/FLU A+B; Complete Time: 19:24 EDMS 07/22 19:32 Order name: CBC Smear Scan; Complete Time: 19:42 EDMS 07/22 16:24 Order name: EKG - Nurse/Tech; Complete Time: 17:44 kb 07/22 19:42 Order name: Vital Signs; Complete Time: 20:28 kb EC:44 Rate is 100 beats/min. Rhythm is regular. QRS [place] is Normal. VT interval is normal at kb 140 msec. QRS interval is normal at 84 msec. QT interval is normal at 344 msec. Administered Medications: 17:28 Drug: Ibuprofen 800 mg Route: PO; eo2 19:00 Follow up: Response: No adverse reaction eo2 17:28 Drug: cloNIDine 0.2 mg Route: PO; eo2 19:00 Follow up: Response: No adverse reaction eo2 Disposition Summary: 07/22/21 20:19 Discharge Ordered Location: Home kb Condition: Stable kb Diagnosis - Coronavirus infection, unspecified kb - Essential (primary) hypertension kb Followup: kb - With: Emergency Department - When: As needed - Reason: Worsening of condition Followup: kb - With: Private Physician - When: 2 - 3 days - Reason: Recheck today's complaints, Continuance of care, Re-evaluation by your physician Discharge Instructions: - Discharge Summary Sheet kb - Viral Respiratory Infection, [id number] kb - COVID-19 kb Forms: - Medication Reconciliation Form kb - Thank You Letter kb - Antibiotic Education kb - Prescription Opioid Use kb Addendum: 07/26/2021 07:04 Co-signature as Attending Physician, Jaylen Arias MD. r n Signatures: Dispatcher [employer] EDRadha Sheffield FNP-C THEATRICAL DRESSER-Ckb Jaylen Arias MD MD rn OwoadCher mcdonough RN RN eo2 Corrections: (The following items were deleted from the chart) 07/22 15:52 15:50 Pt reports fever, chills, shortness of breath, cough and headache that started kb today. . kb 18:15 15:50 Influenza Screen (A \\T\\ B)+BA.LAB.BRZ ordered. EDMS EDMS 18:16 15:50 CORONAVIRUS+MR.LAB.BRZ ordered. EDMS EDMS
[2021-07-22 21:44] VITALS: O2SAT 98
[2021-07-22 21:47] VITALS: BP 141/78; TEMP 97.9
== END 2021-07-22 21:28 | disposition home or self-care (01) ==
LOC: ER 15:27
DX: U07.1 COVID-19 (principal); I10 Essential (primary) hypertension; F17.210 Nicotine dependence, cigarettes, uncomplicated
CPT/HCPCS: 0240U; 36415; 71046; 80048; 84484; 85025; 93005; 99284

== ENCOUNTER 2023-11-03 22:42 | Emergency (ER) | payer OTHER, SELFPAY ==
--- OUTSIDE RECORDS SUMMARY | 2023-11-03 22:50 | XMS REPORT | Continuity of Care Document ---
Author Name Unknown Address [address] [facility] [address] [place] [address] [facility] Address [address] [facility] [address] [place] [address] Care Team Providers Care Extras Casting Director Name Role Phone Pcp, Patient Does Not Have A Primary Care Physic mic Rachel Santana MD Attending Clinician [phone] Doctor Unassigned, [place] Attending Clinician U JOMAR Edwards Attending Clinician Unavailable Jomar Moyer MD Attending Clinician [phone] REBECA FELIZ Attending Clinician Unavailable Rebeca Guerra Attending Clinician [phone] Priya Arauz Attending Clinician [phone] Unknown, Attending Attending Clinician Unavailab PRIYA Moreno Attending Clinician Unavailable QI SCHRADER Attending Clinician Unavailab Qi Pendleton MD Attending Clinician [phone] KYLEE SERRANO Attending Clinician Unavailable Nurse, [facility] Attending Clinician Un available Kylee Serrano MD Attending Clinician [phone] RACHEL SANTANA Attending Clinician Unavailable KERRI CM Attending Clinician Unavailable Jose CABLE PLACERKerri Attending Clinician [phone] Pob, [facility] Main Attending Clinician Unavailabl e 2, [facility] Attending Clinician Unavailable Michelle GREWAL Attending Clinician Unavailable Michelle Garza Attending Clinician [phone] Alondra More MD Attending Clinician [phone] ÁNGELA LABOY Attending Clinician Unavailab ÁNGELA Zazueta Attending Clinician Unavailab kin Gates [employer] ADMINISTRATOR, Josue Attending Clinician [phone] SEACESAR SUHNDA Attending Clinician Unavailable ALONDRA MORE Attending Clinician Unava ilable MARIN PENA Attending Clinician UnavailMARIN Thurston Attending Clinician UnavailMarin Thurston MD Attending Clinician [phone] [facility] Attending Clinician Unavaila andrei WYNNE, Kaylyn Attending Clinician [phone] KAYLYN MARLOW Attending Clinician Unavailable Natalio Rinaldi MD Attending Clinician [phone] Holli Aburto MD Attending Clinician + Jayleen García DO Attending Clinician [phone] JAYLEEN GARCÍA Attending Clinician Unavailable SEBASTIEN KOCH Attending Clinician Unavailable REBECA FELIZ Admitting Clinician Unavailable KERRI CM Admitting Clinician Unavailable RACHEL SANTANA Admitting Clinician Unavailable Michelle GREWAL Admitting Clinician Unavailable ALONDRA MORE Admitting Clinician Unava ilable ÁNGELA LABOY Admitting Clinician Unavailab Jayleen Nguyen DO Admitting Clinician [phone] JAYLEEN GARCÍA Admitting Clinician Unavailable SEBASTIEN KOCH Admitting Clinician Unavailable Payers Payer Name Policy Type Policy Number Effective Date Expirati on Date Source Problems Condition Name Condition Details Condition Category Status Onset Date Resolution Date Last Treatment Date Treating Clinician Comments Source Elevated brain natriureti c peptide (BNP) level Elevated brain natriureti c peptide (BNP) level Disease Active 3 00:00: 00 [facility] Hypertensi on, unspecifie d type Hypertensi on, unspecifie d type Disease Active 04-20 00:00: 00 [facility] Gastroesop hageal reflux disease, unspecifie d whether esophagiti s present Gastroesop hageal reflux disease, unspecifie d whether esophagiti s present Disease Active 04-20 00:00: 00 [facility] Esophageal dysphagia Esophageal dysphagia Disease Active 04-20 00:00: 00 [facility] Missed period Missed period Disease Active 04-20 00:00: 00 [facility] Anemia, unspecifie d type Anemia, unspecifie d type Disease Active 04-20 00:00: 00 [facility] Iron deficiency Iron deficiency Disease Active 04-20 00:00: 00 [facility] Pain in other joint Pain in other joint Disease Active 04-20 00:00: 00 [facility] History of multiple miscarriag es History of multiple miscarriag es Disease Active 04-20 00:00: 00 [facility] Myalgia Myalgia Disease Active 04-20 00:00: 00 [facility] Pyelonephr itis Pyelonephr itis Disease Active 01-20 00:00: 00 [facility] Obesity (BMI 30-39.9) Obesity (BMI 30-39.9) Disease Active 01-20 00:00: 00 [facility] Allergies, Adverse Reactions, Alerts Allergy Name Allergy Type Status Severity Reaction(s) Onset Date Inactive Date Treating Clinician Comments Source TRIAMTER MICHELLE-HYDR OCHLOROT HIAZID DRUG Active Other-Cmnt 11-22 00:00: 00 [facility] Triamter michelle-Hydr ochlorot hiazid Propensi ty to adverse reaction s Active Other - See comments 11-22 00:00: 00 Cramping and fatigue [facility] AMLODIPI NE DRUG INGREDI Active Other-nt 3-09 00:00: 00 [facility] Amlodipi ne Propensi ty to adverse reaction s Active Other - See comments 09-28 00:00: 00 Multiple side effects [facility] NO KNOWN ALLERGIE S Drug Class Active [facility] Social History Social Habit Start Date Stop Date Quantity Comments Source Gender identity [facility] Sexual orientation [facility] History SDOH Alcohol Frequency [facility] History [facility] History SDOH Alcohol Binge [facility] Alcohol intake 2023-05-08 00:00:00 2023-05-08 00:00:00 [facility] Exposure to SARS-CoV-2 (event) 2022-11-26 00:00:00 2022-12-06 14:58:00 Not sure [facility] History of Social function 2022-03-28 00:00:00 2022-03-28 00:00:00 [facility] Cigarettes smoked current (pack per day) - Reported 2022-03-28 00:00:00 2022-03-28 00:00:00 [facility] Cigarette pack-years 2022-03-28 00:00:00 2022-03-28 00:00:00 [facility] Alcohol Comment 2022-03-28 00:00:00 2022-03-28 00:00:00 rarely drinks [facility] Tobacco use and exposure 2022-03-28 00:00:00 2022-03-28 00:00:00 Smokeless tobacco non-user [facility] History of tobacco use 2022-01-20 00:00:00 Cigarette Smoker [facility] Sex Assigned At 1980 00:00:00 1980 00:00:00 [facility] Smoking Status Start Date Stop Date Source Ex-smoker 2022-03-28 00:00:00 2022-03-28 00:00:00 [facility] Medications Ordered Medication Name Filled Medication Name Start Date Stop Date Current Medication? Ordering Clinician Indication Dosage Frequency Signature (SIG) Comments Components Source ondansetron (ZOFRAN-ODT ) disintegrat ing tablet 4 mg 08-05 03:45: 00 08-05 03:11 :00 No 4mg 4 mg, Oral, ONCE, 1 dose, On 08/04/23 at 2145, [facility] HYDROcodone -acetaminop hen (NORCO) 10-325 mg tablet 1 tablet 08-05 03:45: 00 08-05 03:12 :00 No 1{tbl} 1 tablet, Oral, ONCE, 1 dose, On 08/04/23 at 2145, [facility] dexAMETHaso ne (DECADRON) tablet 6 mg 08-05 03:30: 00 08-05 03:11 :00 No 6mg 6 mg, Oral, ONCE NOW, 1 dose, On 08/04/23 at 2130, [facility] ibuprofen (IBU) tablet 600 mg 08-05 01:30: 00 08-05 01:33 :00 No 600mg 600 mg, Oral, ONCE, 1 dose, On 08/04/23 at 1930, [facility] cefdinir 300 mg capsule 08-04 00:00: 00 08-15 05:59 :00 No [id number] 300mg Take 1 capsule by mouth in the morning and 1 capsule in the evening. Do all this for 10 days. [facility] acetaminoph en-codeine 300-30 mg tablet 08-04 00:00: 00 08-12 05:59 :00 No [id number] 1{tbl} Take 1 tablet by mouth every 4 (four) hours as needed for Pain (scale 7-10) for up to 7 days. Indication s: acute pain [facility] predniSONE 20 mg tablet 08-04 00:00: 00 08-10 05:59 :00 No [id number] 20mg Take 1 tablet by mouth in the morning and 1 tablet in the evening. Do all this for 5 days. [facility] NaCl 0.9% (NS) bolus infusion 1,000 mL 08-02 03:30: 00 08-02 05:27 :00 No 1000mL at 999 mL/hr, 1,000 mL, IV Infusion, ONCE, 1 dose, On Sun08/01/23 at 2130, MICHAEL [facility] ibuprofen (IBU) tablet 600 mg 08-02 03:00: 00 08-02 03:00 :00 No 600mg 600 mg, Oral, ONCE, 1 dose, On Sun08/01/23 at 2100, MICHAEL [facility] cloNIDine (CATAPRES) tablet 0.1 mg 08-02 02:45: 00 08-02 03:25 :00 No .1mg 0.1 mg, Oral, ONCE, 1 dose, On Sun08/01/23 at 2045, STAT [facility] carvediloL (COREG) tablet 12.5 mg 08-02 02:45: 00 08-02 03:25 :00 No 12.5mg 12.5 mg, Oral, ONCE NOW, 1 dose, On Sun08/01/23 at 204, Routine [facility] losartan (COZAAR) tablet 100 mg 08-02 02:45: 00 08-02 03:25 :00 No 100mg 100 mg, Oral, ONCE NOW, 1 dose, On Sun08/01/23 at 2045, Routine [facility] ibuprofen 600 mg tablet 08-01 00:00: 00 Yes [id number] 600mg Take 1 tablet by mouth every 6 (six) hours as needed for Temp > 38.5 C or Pain (scale 4-6). [facility] amoxicillin -clavulanat e (AUGMENTIN) 875-125 mg per tablet 1 tablet 03-13 02:40: 00 03-13 03:03 :00 No 1{tbl} 1 tablet, Oral, ONCE, 1 dose, On Sun03/12/23 at 2145, MICHAEL
Re ason for Anti-Infec tive: Documented Infection< br>Documen yoel Infection Site: Other
O ther site: mouth
D uration of Therapy: 10 days [facility] ketorolac (TORADOL) injection 30 mg 03-13 01:45: 00 03-13 01:31 :00 No 30mg 30 mg, Slow IV Push, ONCE, 1 dose, On Sun03/12/23 at 2045, [facility] losartan 100 mg tablet 03-12 00:00: 00 Yes [id number] 100mg Take 1 tablet by mouth in the morning. [facility] amoxicillin -clavulanat e 875-125 mg per tablet 03-12 00:00: 00 03-23 04:59 :00 No [id number] 1{tbl} Take 1 tablet by mouth every 12 (twelve) hours for 10 days. [facility] hydralAZINE (APRESOLINE ) injection 10 mg 12-21 16:30: 00 12-21 16:48 :00 No 10mg 10 mg, Slow IV Push, ONCE, 1 dose, On Sun12/21/22 at 1130, [facility] hydralAZINE (APRESOLINE ) injection 10 mg 12-21 15:00: 00 12-21 15:31 :00 No 10mg 10 mg, Slow IV Push, ONCE, 1 dose, On Merlene 12/21/22 at 1000, [facility] acetaminoph en (TYLENOL) tablet 650 mg 12-21 15:00: 00 12-21 15:30 :00 No 650mg 650 mg, Oral, ONCE, 1 dose, On Merlene 12/21/22 at 1000, [facility] furosemide 40 mg tablet 12-07 00:00: 00 Yes [id number] 40mg Take 1 tablet by mouth in the morning. [facility] spironolact one 25 mg tablet 11-22 00:00: 00 Yes [id number] 25mg Take 1 tablet by mouth in the morning. [facility] cloNIDine (CATAPRES) tablet 0.1 mg 09-28 22:15: 00 09-28 21:14 :00 No [id number] .1mg [facility] cloNIDine (CATAPRES) tablet 0.1 mg 09-28 21:30: 00 09-28 20:32 :00 No [id number] .[facility] carvediloL 12.5 mg tablet 09-28 00:00: 00 Yes [id number] 12.5mg Take 1 tablet by mouth in the morning and 1 tablet in the evening. Take with meals. [facility] losartan 100 mg tablet 09-28 00:00: 00 03-12 00:00 :00 No [id number] 100mg Take 1 tablet by mouth in the morning. [facility] triamterene -hydrochlor othiazide 37.5-25 mg per capsule 09-28 00:00: 00 11-22 00:00 :00 No [id number] 1{capsu le} Take 1 capsule by mouth every morning. [facility] labetaloL (NORMODYNE) injection 20 mg 08-08 08:45: 00 08-08 07:52 :00 No 20mg 20 mg, Slow IV Push, ONCE, 1 dose, On Sun08/08/22 at 0245, Routine [facility] NIFEdipine ER tablet 30 mg 08-08 06:45: 00 08-08 06:04 :00 No 30mg 30 mg, Oral, ONCE, 1 dose, On Sun08/08/22 at 0045, Routine [facility] iopamidol (ISOVUE 370-500 mL) injection 75 mL 08-08 05:45: 00 08-08 05:45 :00 No [id number] 75mL 75 mL, Intravenou s, ONCE, 1 dose, On Sun08/07/22 at 2345, Routine [facility] ipratropium -albuteroL (DUONEB) 0.5 mg-3 mg(2.5 mg base)/3 mL nebulizer solution 3 mL 08-08 05:15: 00 08-08 04:14 :00 No 3mL 3 mL, Inhalation , ONCE, 1 dose, On Sun08/07/22 at 2315, Routine [facility] carvediloL (COREG) tablet 3.125 mg 08-08 05:00: 00 08-08 04:14 :00 No 3.125mg 3.125 mg, Oral, ONCE, 1 dose, On Sun08/07/22 at 2300, Routine [facility] benzonatate (TESSALON PERLES) capsule 100 mg 08-08 05:00: 00 08-08 04:14 :00 No 100mg 100 mg, Oral, ONCE, 1 dose, On Sun08/07/22 at 2300, Routine [facility] ondansetron 4 mg disintegrat ing tablet 08-08 00:00: 00 12-21 00:00 :00 No [id number] 4mg Take 1 tablet by mouth every 8 (eight) hours as needed for Nausea and Vomiting (N/V). [facility] benzonatate 200 mg capsule 08-08 00:00: 00 12-21 00:00 :00 No [id number] 200mg Take 1 capsule by mouth 3 (three) times daily as needed for Cough for up to 20 doses. [facility] ibuprofen 600 mg tablet 08-08 00:00: 00 12-21 00:00 :00 No [id number] 600mg Take 1 tablet by mouth every 6 (six) hours as needed for Pain (scale 4-6). [facility] molnupiravi r 200 mg capsule 08-08 00:00: 00 08-14 05:59 :00 No [id number] 800mg Take 4 capsules by mouth every 12 (twelve) hours for 5 days. [facility] NIFEDIPINE ER 30 mg tablet 2021-07 00:00: 00 12-21 00:00 :00 No [id number] TAKE ONE TAB IN THE MORNING. IF BP CONSISTENT LY >150/90 TAKE ONE TWICE A DAY. [facility] acetaminoph en (TYLENOL) tablet 975 mg 2021-07 20:56: 00 06-18 21:05 :00 No [id number] 975mg [facility] benzonatate (TESSALON PERLES) 100 mg capsule 2021-07 00:00: 00 06-29 05:59 :00 No [id number] 100mg Take 1 capsule by mouth every 8 (eight) hours as needed for Cough for up to 10 days. [facility] codeine-gua ifenesin 10-100 mg/5 mL oral solution 2021-07 00:00: 00 06-26 05:59 :00 No 10mL Take 10 mL by mouth every 6 (six) hours as needed for Cough for up to 7 days. Indication s: cough [facility] oseltamivir (TAMIFLU) 75 mg capsule 2021-07 00:00: 00 06-24 05:59 :00 No [id number] 75mg Take 1 capsule by mouth in the morning and 1 capsule in the evening. Do all this for 5 days. [facility] DULOXETINE 30 mg capsule 2021-07 00:00: 00 12-21 00:00 :00 No [id number] TAKE 1 CAPSULE BY MOUTH EVERY MORNING [facility] busPIRone 10 mg tablet 2021-07 00:00: 00 12-21 00:00 :00 No [id number] 1 TAB AT NIGHT. MAY INCREASE EVERY FEW DAYS BY 1 EXTRA TAB DAILY UNTIL GOAL OF 2 TABS TWICE DAILY [facility] terbinafine HCL 250 mg tablet 2021-07 00:00: 00 12-21 00:00 :00 No [id number] 250mg Take 1 tablet by mouth in the morning. [facility] DULoxetine 30 mg capsule 2021-07 00:00: 06-02 00:00 :00 No [id number] 30mg Take 1 capsule by mouth in the morning and 1 capsule in the evening. [facility] pantoprazol e 40 mg EC tablet 2021-0704 00:00: 00 12-21 00:00 :00 No [id number] 40mg Take 1 tablet by mouth in the morning. [facility] busPIRone 10 mg tablet 2021-07 0 00:00: 06-02 00:00 :00 No [id number] Take 1 at night, after a few days then increase to 1 tablet twice a day, may increase every few days up to 2 tablets twice a day. For stress [facility] DULoxetine 30 mg capsule 2021-07 0 00:00: 00 05-19 00:00 :00 No [id number] 30mg Take 1 capsule by mouth in the morning. [facility] carvediloL 12.5 mg tablet 04-18 00:00: 00 09-28 00:00 :00 No [id number] 12.5mg Take 1 tablet by mouth in the morning and 1 tablet in the evening. Take with meals. [facility] cyclobenzap rine 10 mg tablet 04-03 00:00: 00 12-21 00:00 :00 No [id number] 10mg Take 1 tablet by mouth 2 (two) times daily as needed (back pain). [facility] labetaloL 100 mg tablet 04-03 00:00: 00 04-18 00:00 :00 No [id number] 100mg Take 1 tablet by mouth every 12 (twelve) hours. [facility] cloNIDine (CATAPRES) tablet 0.1 mg 03-28 20:15: 00 03-28 20:10 :00 No [id number] .1mg [facility] loratadine 10 mg capsule 03-28 16:07: 04 03-28 00:00 :00 No [id number] 10mg Take 10 mg by mouth daily. Indication s: inflammati on of the nose due to an allergy [facility] NIFEdipine ER 30 mg tablet 03-28 00:00: 00 07-20 00:00 :00 No [id number] Take one tab in the morning. If BP consistent ly >150/90 take one twice a day. [facility] pantoprazol e 40 mg EC tablet 03-28 00:00: 00 04-25 00:00 :00 No [id number] 40mg Take 1 tablet by mouth in the morning. [facility] benzonatate 100 mg capsule 07-31 00:00: 00 03-28 00:00 :00 No [id number] 100mg Take 1 capsule by mouth 3 (three) times daily as needed for Cough. [facility] Immunizations Ordered Immunization Name Filled Immunization Name Date Status Comments Source Remdesivir 2022-01-22 00:00:00 Completed [facility] Remdesivir 2022-01-22 00:00:00 Completed [facility] Remdesivir 2022-01-22 00:00:00 Completed [facility] Remdesivir 2022-01-22 00:00:00 Completed [facility] Remdesivir 2022-01-22 00:00:00 Completed [facility] Remdesivir 2022-01-22 00:00:00 Completed [facility] Remdesivir 2022-01-22 00:00:00 Completed [facility] Remdesivir 2022-01-22 00:00:00 Completed [facility] Remdesivir 2022-01-22 00:00:00 Completed [facility] Remdesivir 2022-01-22 00:00:00 Completed [facility] Remdesivir 2022-01-22 00:00:00 Completed [facility] Remdesivir 2022-01-22 00:00:00 Completed [facility] Remdesivir 2022-01-22 00:00:00 Completed [facility] Remdesivir 2022-01-22 00:00:00 Completed [facility] Remdesivir 2022-01-22 00:00:00 Completed [facility] Remdesivir 2022-01-22 00:00:00 Completed [facility] Remdesivir 2022-01-22 00:00:00 Completed [facility] Remdesivir 2022-01-22 00:00:00 Completed [facility] Remdesivir 2022-01-22 00:00:00 Completed [facility] Remdesivir 2022-01-22 00:00:00 Completed [facility] Remdesivir 2022-01-22 00:00:00 Completed [facility] Remdesivir 2022-01-22 00:00:00 Completed [facility] Remdesivir 2022-01-22 00:00:00 Completed [facility] Remdesivir 2022-01-22 00:00:00 Completed [facility] Remdesivir 2022-01-22 00:00:00 Completed [facility] Remdesivir 2022-01-22 00:00:00 Completed [facility] Remdesivir 2022-01-22 00:00:00 Completed [facility] Remdesivir 2022-01-22 00:00:00 Completed [facility] Remdesivir 2022-01-22 00:00:00 Completed [facility] Remdesivir 2022-01-22 00:00:00 Completed [facility] Remdesivir 2022-01-22 00:00:00 Completed [facility] Remdesivir 2022-01-22 00:00:00 Completed [facility] Remdesivir 2022-01-22 00:00:00 Completed [facility] Remdesivir 2022-01-22 00:00:00 Completed [facility] Remdesivir 2022-01-22 00:00:00 Completed [facility] Remdesivir 2022-01-22 00:00:00 Completed [facility] Remdesivir 2022-01-22 00:00:00 Completed [facility] Remdesivir 2022-01-22 00:00:00 Completed [facility] Remdesivir 2022-01-22 00:00:00 Completed [facility] Remdesivir 2022-01-22 00:00:00 Completed [facility] Remdesivir 2022-01-22 00:00:00 Completed [facility] Remdesivir 2022-01-22 00:00:00 Completed [facility] Remdesivir 2022-01-22 00:00:00 Completed [facility] Remdesivir 2022-01-22 00:00:00 Completed [facility] Remdesivir 2022-01-22 00:00:00 Completed [facility] Remdesivir 2022-01-22 00:00:00 Completed [facility] Remdesivir 2022-01-22 00:00:00 Completed [facility] Remdesivir 2022-01-21 00:00:00 Completed [facility] Remdesivir 2022-01-21 00:00:00 Completed [facility] Remdesivir 2022-01-21 00:00:00 Completed [facility] Remdesivir 2022-01-21 00:00:00 Completed [facility] Remdesivir 2022-01-21 00:00:00 Completed [facility] Remdesivir 2022-01-21 00:00:00 Completed [facility] Remdesivir 2022-01-21 00:00:00 Completed [facility] Remdesivir 2022-01-21 00:00:00 Completed [facility] Remdesivir 2022-01-21 00:00:00 Completed [facility] Remdesivir 2022-01-21 00:00:00 Completed [facility] Remdesivir 2022-01-21 00:00:00 Completed [facility] Remdesivir 2022-01-21 00:00:00 Completed [facility] Remdesivir 2022-01-21 00:00:00 Completed [facility] Remdesivir 2022-01-21 00:00:00 Completed [facility] Remdesivir 2022-01-21 00:00:00 Completed [facility] Remdesivir 2022-01-21 00:00:00 Completed [facility] Remdesivir 2022-01-21 00:00:00 Completed [facility] Remdesivir 2022-01-21 00:00:00 Completed [facility] Remdesivir 2022-01-21 00:00:00 Completed [facility] Remdesivir 2022-01-21 00:00:00 Completed [facility] Remdesivir 2022-01-21 00:00:00 Completed [facility] Remdesivir 2022-01-21 00:00:00 Completed [facility] Remdesivir 2022-01-21 00:00:00 Completed [facility] Remdesivir 2022-01-21 00:00:00 Completed [facility] Remdesivir 2022-01-21 00:00:00 Completed [facility] Remdesivir 2022-01-21 00:00:00 Completed [facility] Remdesivir 2022-01-21 00:00:00 Completed [facility] Remdesivir 2022-01-21 00:00:00 Completed [facility] Remdesivir 2022-01-21 00:00:00 Completed [facility] Remdesivir 2022-01-21 00:00:00 Completed [facility] Remdesivir 2022-01-21 00:00:00 Completed [facility] Remdesivir 2022-01-21 00:00:00 Completed [facility] Remdesivir 2022-01-21 00:00:00 Completed [facility] Remdesivir 2022-01-21 00:00:00 Completed [facility] Remdesivir 2022-01-21 00:00:00 Completed [facility] Remdesivir 2022-01-21 00:00:00 Completed [facility] Remdesivir 2022-01-21 00:00:00 Completed [facility] Remdesivir 2022-01-21 00:00:00 Completed [facility] Remdesivir 2022-01-21 00:00:00 Completed [facility] Remdesivir 2022-01-21 00:00:00 Completed [facility] Remdesivir 2022-01-21 00:00:00 Completed [facility] Remdesivir 2022-01-21 00:00:00 Completed [facility] Remdesivir 2022-01-21 00:00:00 Completed [facility] Remdesivir 2022-01-21 00:00:00 Completed [facility] Remdesivir 2022-01-21 00:00:00 Completed [facility] Remdesivir 2022-01-21 00:00:00 Completed [facility] Remdesivir 2022-01-21 00:00:00 Completed [facility] Remdesivir 2022-01-20 00:00:00 Completed [facility] Remdesivir 2022-01-20 00:00:00 Completed [facility] Remdesivir 2022-01-20 00:00:00 Completed [facility] Remdesivir 2022-01-20 00:00:00 Completed [facility] Remdesivir 2022-01-20 00:00:00 Completed [facility] Remdesivir 2022-01-20 00:00:00 Completed [facility] Remdesivir 2022-01-20 00:00:00 Completed [facility] Remdesivir 2022-01-20 00:00:00 Completed [facility] Remdesivir 2022-01-20 00:00:00 Completed [facility] Remdesivir 2022-01-20 00:00:00 Completed [facility] Remdesivir 2022-01-20 00:00:00 Completed [facility] Remdesivir 2022-01-20 00:00:00 Completed [facility] Remdesivir 2022-01-20 00:00:00 Completed [facility] Remdesivir 2022-01-20 00:00:00 Completed [facility] Remdesivir 2022-01-20 00:00:00 Completed [facility] Remdesivir 2022-01-20 00:00:00 Completed [facility] Remdesivir 2022-01-20 00:00:00 Completed [facility] Remdesivir 2022-01-20 00:00:00 Completed [facility] Remdesivir 2022-01-20 00:00:00 Completed [facility] Remdesivir 2022-01-20 00:00:00 Completed [facility] Remdesivir 2022-01-20 00:00:00 Completed [facility] Remdesivir 2022-01-20 00:00:00 Completed [facility] Remdesivir 2022-01-20 00:00:00 Completed [facility] Remdesivir 2022-01-20 00:00:00 Completed [facility] Remdesivir 2022-01-20 00:00:00 Completed [facility] Remdesivir 2022-01-20 00:00:00 Completed [facility] Remdesivir 2022-01-20 00:00:00 Completed [facility] Remdesivir 2022-01-20 00:00:00 Completed [facility] Remdesivir 2022-01-20 00:00:00 Completed [facility] Remdesivir 2022-01-20 00:00:00 Completed [facility] Remdesivir 2022-01-20 00:00:00 Completed [facility] Remdesivir 2022-01-20 00:00:00 Completed [facility] Remdesivir 2022-01-20 00:00:00 Completed [facility] Remdesivir 2022-01-20 00:00:00 Completed [facility] Remdesivir 2022-01-20 00:00:00 Completed [facility] Remdesivir 2022-01-20 00:00:00 Completed [facility] Remdesivir 2022-01-20 00:00:00 Completed [facility] Remdesivir 2022-01-20 00:00:00 Completed [facility] Remdesivir 2022-01-20 00:00:00 Completed [facility] Remdesivir 2022-01-20 00:00:00 Completed [facility] Remdesivir 2022-01-20 00:00:00 Completed [facility] Remdesivir 2022-01-20 00:00:00 Completed [facility] Remdesivir 2022-01-20 00:00:00 Completed [facility] Remdesivir 2022-01-20 00:00:00 Completed [facility] Remdesivir 2022-01-20 00:00:00 Completed [facility] Remdesivir 2022-01-20 00:00:00 Completed [facility] Remdesivir 2022-01-20 00:00:00 Completed [facility] Remdesivir Unknown Completed [facility] Rem[facility] Unknown Completed [facility] Remdesivir Unknown Completed [facility] Remdesivir Unknown Completed [facility] Remdesivir Unknown Completed [facility] Remdesivir Unknown Completed [facility] Rem[facility] Unknown [facility]pleted [facility] Rem[facility] Unknown Completed [facility] Remdes[facility] Unknown Completed [facility] Remdes[facility] Unknown Completed [facility] Rem[facility] Unknown Completed [facility] Rem[facility] Unknown Completed [facility] Unknown Completed [facility] Unknown Completed [facility] Unknown Completed [facility] Unknown Completed [facility] Unknown Completed [facility] Unknown Completed [facility] Unknown Completed [facility] Unknown Completed [facility] Unknown Completed [facility] Unknown Completed [facility] Unknown Completed [facility] Unknown Completed [facility] Unknown Completed [facility] Unknown Completed [facility] Unknown Completed [facility] Unknown Completed [facility] Unknown Completed [facility] Unknown Completed [facility] Unknown Completed [facility] Unknown Completed [facility] Unknown Completed [facility] Unknown Completed [facility] Unknown Completed [facility] Unknown Completed [facility] Unknown Completed [facility] Unknown Completed [facility] Unknown Completed [facility] Unknown Completed [facility] Unknown Completed [facility] Remdesivir Unknown Completed [facility] Remdesivir Unknown Completed [facility] Remdesivir Unknown Completed [facility] Remdesivir Unknown Completed [facility] Vital Signs Vital Name Observation Time Observation Value Comments S ource Systolic blood pressure 2023-08-05 01:18:00 167 mm[Hg] [facility] Diastolic blood pressure 2023-08-05 01:18:00 124 mm[Hg] [facility] Heart rate 2023-08-05 01:18:00 95 /min [facility] Body temperature 2023-08-05 01:18:00 37.61 Tracy [facility] Respiratory rate 2023-08-05 01:18:00 20 /min [facility] Body height 2023-08-05 01:18:00 162.6 cm [facility] Body weight 2023-08-05 01:18:00 104.327 kg [facility] BMI 2023-08-05 01:18:00 39.48 kg/m2 [facility] Oxygen saturation in Arterial blood by Pulse oximetry 2023-08-05 01:18:00 97 /min [facility] Systolic blood pressure 2023-08-02 05:00:00 144 mm[Hg] [facility] Diastolic blood pressure 2023-08-02 05:00:00 91 mm[Hg] [facility] Heart rate 2023-08-02 05:00:00 82 [facility] Body temperature 2023-08-02 05:00:00 37.56 Tracy [facility] Respiratory rate 2023-08-02 05:00:00 19 /min [facility] Oxygen saturation in Arterial blood by Pulse oximetry 2023-08-02 05:00:00 96 /min [facility] Body height 2023-08-02 02:26:00 162.6 cm [facility] Body weight 2023-08-02 02:26:00 104.327 kg [facility] BMI 2023-08-02 02:26:00 39.48 kg/m2 [facility] Systolic blood pressure 2023-05-08 19:15:00 157 mm[Hg] [facility] Diastolic blood pressure 2023-05-08 19:15:00 111 mm[Hg] [facility] Heart rate 2023-05-08 19:09:00 88 /min [facility] Body temperature 2023-05-08 19:09:00 37 Tracy [facility] Respiratory rate 2023-05-08 19:09:00 18 /min [facility] Body height 2023-05-08 19:09:00 162.6 cm [facility] Body weight 2023-05-08 19:09:00 105.28 kg [facility] BMI 2023-05-08 19:09:00 39.84 kg/m2 [facility] Oxygen saturation in Arterial blood by Pulse oximetry 2023-05-08 19:09:00 97 /min [facility] Systolic blood pressure 2023-03-13 02:51:00 206 mm[Hg] [facility] Diastolic blood pressure 2023-03-13 02:51:00 132 mm[Hg] [facility] Heart rate 2023-03-13 02:51:00 72 /min [facility] Respiratory rate 2023-03-13 02:51:00 18 /min [facility] Body temperature 2023-03-12 23:59:00 37.78 Tracy [facility] Body height 2023-03-12 23:59:00 162.6 cm [facility] Body weight 2023-03-12 23:59:00 104.69 kg [facility] BMI 2023-03-12 23:59:00 39.62 kg/m2 [facility] Oxygen saturation in Arterial blood by Pulse oximetry 2023-03-12 23:59:00 100 /min [facility] Systolic blood pressure 2023-03-12 23:42:00 199 mm[Hg] [facility] Diastolic blood pressure 2023-03-12 23:42:00 132 mm[Hg] [facility] Systolic blood pressure 2023-03-12 23:42:00 199 mm[Hg] [facility] Diastolic blood pressure 2023-03-12 23:42:00 132 mm[Hg] [facility] Heart rate 2023-03-12 23:40:00 89 /min [facility] Body temperature 2023-03-12 23:40:00 37.06 Tracy [facility] Respiratory rate 2023-03-12 23:40:00 16 /min [facility] Body height 2023-03-12 23:40:00 162.6 cm [facility] 2023-03-12 23:40:00 104.463 [facility] 2023-03-12 23:40:00 39.53 kg/m2 [facility] Oxygen saturation in Arterial blood by Pulse oximetry 2023-03-12 23:40:00 98 /min [facility] Heart rate 2023-03-12 23:40:00 89 /min [facility] Body temperature 2023-03-12 23:40:00 37.06 Tracy [facility] Respiratory rate 2023-03-12 23:40:00 16 /min [facility] Body height 2023-03-12 23:40:00 162.6 cm [facility] Body weight 2023-03-12 23:40:00 104.463 kg [facility] BMI 2023-03-12 23:40:00 39.53 kg/m2 [facility] Oxygen saturation in Arterial blood by Pulse oximetry 2023-03-12 23:40:00 98 /min [facility] Systolic blood pressure 2022-12-21 18:00:00 172 mm[Hg] [facility] Diastolic blood pressure 2022-12-21 18:00:00 106 mm[Hg] [facility] Heart rate 2022-12-21 18:00:00 90 /min [facility] Body temperature 2022-12-21 18:00:00 36.89 Tracy [facility] Respiratory rate 2022-12-21 18:00:00 15 /min [facility] Oxygen saturation in Arterial blood by Pulse oximetry 2022-12-21 18:00:00 98 /min [facility] Body height 2022-12-21 14:32:00 162.6 cm [facility] Body weight 2022-12-21 14:32:00 106.142 kg [facility] BMI 2022-12-21 14:32:00 40.17 kg/m2 [facility] Systolic blood pressure 2022-12-07 20:52:00 133 mm[Hg] [facility] Diastolic blood pressure 2022-12-07 20:52:00 76 mm[Hg] [facility] Heart rate 2022-12-07 20:52:00 76 /min [facility] Body height 2022-12-07 20:52:00 162.6 cm [facility] Body weight 2022-12-07 20:52:00 106.369 kg [facility] BMI 2022-12-07 20:52:00 40.25 kg/m2 [facility] Oxygen saturation in Arterial blood by Pulse oximetry 2022-12-07 20:52:00 97 /min [facility] Systolic blood pressure 2022-10-12 20:49:00 139 mm[Hg] [facility] Diastolic blood pressure 2022-10-12 20:49:00 90 mm[Hg] [facility] Heart rate 2022-10-12 20:49:00 75 /min [facility] Body temperature 2022-10-12 20:49:00 36.61 Tracy [facility] Respiratory rate 2022-10-12 20:49:00 18 /min [facility] Body weight 2022-10-12 20:49:00 102.83 kg [facility] BMI 2022-10-12 20:49:00 38.91 kg/m2 [facility] Oxygen saturation in Arterial blood by Pulse oximetry 2022-10-12 20:49:00 99 /min [facility] Systolic blood pressure 2022-09-28 22:00:00 176 mm[Hg] [facility] Diastolic blood pressure 2022-09-28 22:00:00 116 mm[Hg] [facility] Heart rate 2022-09-28 20:06:00 91 /min [facility] Body temperature 2022-09-28 20:06:00 37.33 Tracy [facility] Respiratory rate 2022-09-28 20:06:00 18 /min [facility] Body height 2022-09-28 20:06:00 162.6 cm [facility] Body weight 2022-09-28 20:06:00 103.556 kg [facility] BMI 2022-09-28 20:06:00 39.19 kg/m2 [facility] Oxygen saturation in Arterial blood by Pulse oximetry 2022-09-28 20:06:00 98 /min [facility] Systolic blood pressure 2022-08-08 08:05:00 137 mm[Hg] [facility] Diastolic blood pressure 2022-08-08 08:05:00 90 mm[Hg] [facility] Heart rate 2022-08-08 08:05:00 98 /min [facility] Respiratory rate 2022-08-08 08:05:00 23 /min [facility] Oxygen saturation in Arterial blood by Pulse oximetry 2022-08-08 08:05:00 94 /min [facility] Body temperature 2022-08-08 07:45:00 38.06 Tracy [facility] Body height 2022-08-08 03:38:00 162.6 cm [facility] Body weight 2022-08-08 03:38:00 99.111 kg [facility] BMI 2022-08-08 03:38:00 37.51 kg/m2 [facility] Systolic blood pressure 2022-06-18 20:49:00 171 mm[Hg] [facility] Diastolic blood pressure 2022-06-18 20:49:00 106 mm[Hg] [facility] Heart rate 2022-06-18 20:47:00 119 /min [facility] Body temperature 2022-06-18 20:47:00 39.5 Tracy [facility] Respiratory rate 2022-06-18 20:47:00 18 /min [facility] Body height 2022-06-18 20:47:00 160 cm [facility] Body weight 2022-06-18 20:47:00 95.255 kg [facility] BMI 2022-06-18 20:47:00 37.20 kg/m2 [facility] Oxygen saturation in Arterial blood by Pulse oximetry 2022-06-18 20:47:00 97 /min [facility] Systolic blood pressure 2022-05-19 21:35:00 156 mm[Hg] [facility] Diastolic blood pressure 2022-05-19 21:35:00 108 mm[Hg] [facility] Heart rate 2022-05-19 21:33:00 78 /min [facility] Respiratory rate 2022-05-19 21:33:00 18 /min [facility] Body height 2022-05-19 21:33:00 162.6 cm [facility] Body weight 2022-05-19 21:33:00 97.523 kg [facility] BMI 2022-05-19 21:33:00 36.90 kg/m2 [facility] Oxygen saturation in Arterial blood by Pulse oximetry 2022-05-19 21:33:00 100 /min [facility] Systolic blood pressure 2022-05-17 20:54:00 178 mm[Hg] [facility] Diastolic blood pressure 2022-05-17 20:54:00 134 mm[Hg] [facility] Heart rate 2022-05-17 20:54:00 83 /min [facility] Respiratory rate 2022-05-17 20:51:00 19 /min [facility] Body height 2022-05-17 20:51:00 160 cm [facility] Body weight 2022-05-17 20:51:00 94.847 kg [facility] BMI 2022-05-17 20:51:00 37.04 kg/m2 [facility] Oxygen saturation in Arterial blood by Pulse oximetry 2022-05-17 20:51:00 95 /min [facility] Systolic blood pressure 2022-05-08 19:32:00 139 mm[Hg] [facility] Diastolic blood pressure 2022-05-08 19:32:00 92 mm[Hg] [facility] Heart rate 2022-05-08 19:32:00 63 /min [facility] Oxygen saturation in Arterial blood by Pulse oximetry 2022-05-08 19:32:00 100 /min [facility] Body temperature 2022-05-08 19:30:00 36.67 Tracy [facility] Respiratory rate 2022-05-08 19:30:00 18 /min [facility] Body height 2022-05-08 19:30:00 160 cm [facility] Body weight 2022-05-08 19:30:00 94.212 kg [facility] BMI 2022-05-08 19:30:00 36.79 kg/m2 [facility] Systolic blood pressure 2022-04-25 20:20:00 156 mm[Hg] [facility] Diastolic blood pressure 2022-04-25 20:20:00 115 mm[Hg] [facility] Heart rate 2022-04-25 20:20:00 84 /min [facility] Body temperature 2022-04-25 20:20:00 37.11 Tracy [facility] Respiratory rate 2022-04-25 20:20:00 18 /min [facility] Body height 2022-04-25 20:20:00 162.6 cm [facility] Body weight 2022-04-25 20:20:00 93.622 kg [facility] BMI 2022-04-25 20:20:00 35.43 kg/m2 [facility] Oxygen saturation in Arterial blood by Pulse oximetry 2022-04-25 20:20:00 100 /min [facility] Systolic blood pressure 2022-04-18 20:42:00 147 mm[Hg] [facility] Diastolic blood pressure 2022-04-18 20:42:00 88 mm[Hg] [facility] Heart rate 2022-04-18 20:42:00 78 /min [facility] Body temperature 2022-04-18 20:42:00 37.5 Tracy [facility] Respiratory rate 2022-04-18 20:42:00 18 /min [facility] Body height 2022-04-18 20:42:00 162.6 cm [facility] Body weight 2022-04-18 20:42:00 95.89 kg [facility] BMI 2022-04-18 20:42:00 36.29 kg/m2 [facility] Oxygen saturation in Arterial blood by Pulse oximetry 2022-04-18 20:42:00 100 /min [facility] Systolic blood pressure 2022-04-06 20:26:00 138 mm[Hg] [facility] Diastolic blood pressure 2022-04-06 20:26:00 91 mm[Hg] [facility] Heart rate 2022-04-06 20:26:00 83 /min [facility] Body temperature 2022-04-06 20:26:00 36.39 Tracy [facility] Respiratory rate 2022-04-06 20:26:00 18 /min [facility] Body height 2022-04-06 20:26:00 162.6 cm [facility] Body weight 2022-04-06 20:26:00 94.847 kg [facility] BMI 2022-04-06 20:26:00 35.89 kg/m2 [facility] Oxygen saturation in Arterial blood by Pulse oximetry 2022-04-06 20:26:00 99 /min [facility] Systolic blood pressure 2022-04-03 13:14:00 175 mm[Hg] [facility] Diastolic blood pressure 2022-04-03 13:14:00 117 mm[Hg] [facility] Heart rate 2022-04-03 13:09:00 75 /min [facility] Body temperature 2022-04-03 13:09:00 36.56 Tracy [facility] Respiratory rate 2022-04-03 13:09:00 18 /min [facility] Body height 2022-04-03 13:09:00 162.6 cm [facility] Body weight 2022-04-03 13:09:00 93.532 kg [facility] BMI 2022-04-03 13:09:00 35.39 kg/m2 [facility] Oxygen saturation in Arterial blood by Pulse oximetry 2022-04-03 13:09:00 99 /min [facility] Systolic blood pressure 2022-03-28 20:40:00 200 mm[Hg] [facility] Diastolic blood pressure 2022-03-28 20:40:00 124 mm[Hg] [facility] Heart rate 2022-03-28 19:58:00 90 /min [facility] Body temperature 2022-03-28 19:58:00 36.94 Tracy [facility] Respiratory rate 2022-03-28 19:58:00 18 /min [facility] Body height 2022-03-28 19:58:00 162.6 cm [facility] Body weight 2022-03-28 19:58:00 95.754 kg [facility] BMI 2022-03-28 19:58:00 36.24 kg/m2 [facility] Oxygen saturation in Arterial blood by Pulse oximetry 2022-03-28 19:58:00 100 /min [facility] Procedures Procedure Date / Time Performed Performing Clinician Source AUTHORIZATION FOR RELEASE OF PHI 2023-10-02 05:01:00 Doctor Unassigned, [place] [facility] ASSIGNMENT OF BENEFITS 2023-08-05 01:48:02 Docto r Unassigned, [place] [facility] RAPID STREP SCREEN FOR GROUP A 2023-08-05 01:24:00 Jomar Moyer [facility] CONSENT/REFUSAL FOR DIAGNOSIS AND TREATMENT 2023-08-05 01:04:03 Doctor Unassigned, [place] [facility] BASIC METABOLIC PANEL (NA, K, CL, CO2, GLUCOSE, BUN, CREATININE, CA) 2023-08-02 03:23:00 Rebeca Feliz [facility] CBC WITH DIFF 2023-08-02 03:23:[address] [facility] URINALYSIS 2023-08-02 03:23:00 Rebeca Feliz [facility] RAPID STREP SCREEN FOR GROUP A 2023-08-02 03:23:00 Rebeca Feliz [facility] RAPID INFLUENZA A/B 2023-08-02 03:23:00 Rebeca Feliz [facility] COVID-19 (ID NOW RAPID TESTING) 2023-08-02 03:23:00 Rebeca Feliz [facility] LACTIC ACID WHOLE BLOOD 2023-08-02 03:21:00 Bc Feliz [facility] POCT TEST 2023-08-02 03:02:00 Rebeca Feliz [facility] XR CHEST 1 VW 2023-08-02 02:51:07 [facility]REFUSAL FOR DIAGNOSIS AND TREATMENT 2023-08-02 02:15:59 Doctor Unassigned, [place] [facility] POCT SARS-COV-2 ANTIGEN (BINAX NOW) 2023-05-08 19:56:00 Priya Uriostegui [facility] POCT MOLECULAR FLU 2023-05-08 19:43:00 Unknown, Attend ing [facility] POCT MOLECULAR STREP 2023-05-08 19:14:00 Unknown, Atte monalisa [facility] COMP. METABOLIC PANEL ([id number]) 2023-03-13 01:30:00 Qi Schrader [facility] CBC WITH DIFF 2023-03-13 01:30:00 Qi Schrader [facility] LACTIC ACID WHOLE BLOOD 2023-03-13 01:30:00 Qi Song [facility] POCT TEST 2023-03-13 01:29:00 Laine Schrader [facility] ASSIGNMENT OF BENEFITS 2023-03-13 01:13:26 Docto r Unassigned, [place] [facility] CONSENT/REFUSAL FOR DIAGNOSIS AND TREATMENT 2023-03-12 23:46:37 Doctor Unassigned, [place] [facility] ABORH CONFIRMATION (LAB ONLY) 2022-12-21 16:40:00 Kerri Cm [facility] US FIRST TRIMESTER LESS THAN 14 WEEKS WITH TRANSVAGINAL 2022-12-21 15:23:25 Kerri Cm [facility] POCT TEST 2022-12-21 14:46:00 Kerri Cm [facility] TOTAL BETA HCG ASSAY 2022-12-21 14:45:00 Luis Cm [facility] URINALYSIS 2022-12-21 14:45:00 Kerri Cm [facility] HB ABO GROUPING 2022-12-21 14:45:00 [facility]/REFUSAL FOR DIAGNOSIS AND TREATMENT 2022-12-21 14:26:21 Doctor Unassigned, [place] [facility] ASSIGNMENT OF BENEFITS 2022-09-28 22:43:23 Docto r Unassigned, [place] [facility] CT CHEST PULMONARY ANGIOGRAM 2022-08-08 05:06:44 Michelle Grewal [facility] MAGNESIUM 2022-08-08 04:10:00 Michelle Grewal [facility] TROPONIN I 2022-08-08 04:10:00 Michelle Grewal [facility] COMP. METABOLIC PANEL ([id number]) 2022-08-08 04:10:00 Michelle Grewal [facility] CBC WITH DIFF 2022-08-08 04:10:00 Michelle Grewal [facility] D-DIMER 2022-08-08 04:10:00 Michelle Grewal [facility] URINALYSIS 2022-08-08 04:10:00 Michelle Grewal [facility] RAPID INFLUENZA A/B 2022-08-08 04:10:00 Michelle Grewal [facility] N-TERMINAL PRO-BNP 2022-08-08 04:10:00 Michelle Grewal [facility] COVID-19 (ID NOW RAPID TESTING) 2022-08-08 04:10:00 Michelle Grewal [facility] NOTICE OF PRIVACY PRACTICES 2022-08-08 03:27:23 Doctor Unassigned, [place] [facility] CONSENT/REFUSAL FOR DIAGNOSIS AND TREATMENT 2022-08-08 03:26:39 Doctor Unassigned, [place] [facility] POCT MOLECULAR FLU 2022-06-18 20:51:00 Unknown, Attend [facility] POCT MOLECULAR STREP 2022-06-18 20:44:00 Unknown, Jett sheldon [facility] SLEEP STUDY DATA REPORT 2022-05-11 05:01:00 Doct or Unassigned, [place] [facility] POCT MOLECULAR FLU 2022-04-06 20:32:00 Unknown, Attend [facility] POCT MOLECULAR STREP 2022-04-06 20:30:00 Unknown, Attjusto [facility] XR SPINE THORACIC 2 VW 2022-04-03 14:35:51 Jimmy Laboy [facility] XR LUMBAR SPINE 3 VW 2022-04-03 14:35:31 Bassam Laboy [facility] CREATINE KINASE 2022-03-28 22:19:00 Justo More [facility] FERRITIN SERUM 2022-03-28 22:19:00 Justo More [facility] IRON 2022-03-28 22:19:00 Justo More [facility] RHEUMATOID FACTOR 2022-03-28 22:19:00 Alondra More [facility] TOTAL IRON BINDING CAPACITY 2022-03-28 22:19:00 Alondra More [facility] FREE T4 2022-03-28 22:19:00 Justo More [facility] THYROID STIMULATING HORMONE 2022-03-28 22:19:00 Alondra More [facility] SEDIMENTATION RATE 2022-03-28 22:19:00 Alondra More [facility] CBC WITH DIFF 2022-03-28 22:19:00 Justo More [facility] ANTI-NUCLEAR ANTIBODY SCREEN 2022-03-28 22:19:00 Alondra More [facility] HCV ANTIBODY 2022-03-28 22:19:00 Justo More [facility] ANTICARDIOLIPIN ANTIBODIES 2022-03-28 22:19:00 Alondra Blackburn [facility] CYCLIC CITRULLINATED PEPTIDE 2022-03-28 22:19:00 Alondra More [facility] ANTI-SM/MANAGER HOME HEALTHCARE 2022-03-28 22:19:00 Justo More [facility] ANTI-DOUBLE STRANDED DNA 2022-03-28 22:19:00 Alondra Alejandre [facility] FREE T3 2022-03-28 22:19:00 Justo More [facility] ANTI-NUCLEAR ANTIBODY-PATHOLOGIST INTERPRETATION 2022-03-28 22:19:00 Alondra More [facility] Encounters Start Date/Time End Date/Time Encounter Type Admission Type Attending [facility] Care Facility Care Department Encounter ID Source 2023-10-02 00:00:00 2023-10-02 00:00:00 Telephone Rachel Santana [facility] 1.2840.114 350.1.13.10 4.2.7.2.686 [id number] [facility] 2023-10-02 00:00:00 2023-10-02 00:00:00 Orders Only Doctor Unassigned, [place] [facility] 1.2840.114 350.1.13.10 4.2.7.2.686 [id number] [facility] 2023-08-04 19:22:00 2023-08-04 21:21:00 Emergency X JOMAR MOYER [facility] ERT [id number] [facility] 2023-08-04 19:22:00 2023-08-04 21:21:00 Emergency Jomar Moyer J [facility] 1.2840.114 350.1.13.10 4.2.7.2.686 [id number] [facility] 2023-08-01 20:28:00 2023-08-01 23:28:00 Emergency X REBECA FELIZ [facility] ERT [id number] [facility] 2023-08-01 20:28:00 2023-08-01 23:28:00 Emergency Rebeca Feliz [facility] 1.2840.114 350.1.13.10 4.2.7.2.686 [id number] [facility] 2023-08-01 00:00:00 2023-08-01 00:00:00 Orders Only Doctor Unassigned, [place] [facility] 1.2840.114 350.1.13.10 4.2.7.2.686 [id number] [facility] 2023-05-08 14:00:00 2023-05-08 14:20:00 Urgent Care Priya Uriostegui Unknown, Attending [facility]REE[facility] 1.2840.114 350.1.13.10 4.2.7.2.686 [id number] [facility] 2023-05-08 14:00:00 2023-05-08 14:00:00 Outpatient PRYIA BRIGHT [facility] [id number] [facility] 2023-03-12 19:01:00 2023-03-12 22:57:00 Emergency X QI SCHRADER [facility] ERT [id number] [facility] 2023-03-12 19:01:00 2023-03-12 22:57:00 Emergency Qi Schrader [facility] 1.2840.114 350.1.13.10 4.2.7.2.686 [id number] [facility] 2023-03-12 18:45:00 2023-03-12 18:46:10 Outpatient KYLEE ALEJANDRA [facility] [id number] [facility] 2023-03-12 18:45:00 2023-03-12 18:46:10 Nurse Visit Nurse, [facility] Unknown, Attending [facility]e [facility]err[facility] 1.114 350.1.13.10 4.2.7.2.686 [id number] [facility] 2023-01-15 09:20:00 2023-01-15 09:20:00 [facility] [id number] [facility] 2022-12-21 09:33:00 2022-12-21 13:21:00 Emergency X KERRI CM [facility] ERT [id number] [facility] 2022-12-21 09:33:00 2022-12-21 13:21:00 Emergency Kerri Cm [facility] 1.114 350.1.13.10 4.2.7.2.686 [id number] [facility] 2022-12-11 00:00:00 2022-12-11 00:00:00 Patient Secure Msg Doctor Unassigned, [place] [facility] 1.114 350.1.13.10 4.2.7.2.686 [id number] [facility] 2022-12-08 00:00:00 2022-12-08 00:00:00 Patient Secure Msg Cedric [facility] BUILDING 1.114 350.1.13.10 4.2.7.2.686 [id number] [id number] [facility] 2022-12-07 16:30:00 2022-12-07 16:45:00 Candy Puller Visit Pob, Adc Lab Main Cedric [facility] BUILDING 1.114 350.1.13.10 4.2.7.2.686 [id number] [facility] 2022-12-07 16:30:00 2022-12-07 16:30:00 [facility] [id number] [facility] 2022-12-07 15:40:00 2022-12-07 16:11:06 Office Visit Cedric [facility] BUILDING 1.2.840.114 350.1.13.10 4.2.7.2.686 [id number] [facility] 2022-12-06 15:15:00 2022-12-06 15:30:00 Candy Puller Visit 2, Adc Lab Cedric [facility] BUILDING 1.2.840.114 350.1.13.10 4.2.7.2.686 [id number] [facility] 2022-12-06 15:15:00 2022-12-06 15:15:00 [facility] [id number] [facility] 2022-11-22 00:00:00 2022-11-22 00:00:00 Telephone Cedric [facility] BUILDING 1.2.840.114 350.1.13.10 4.2.7.2.686 [id number] [id number] [facility] 2022-11-06 08:00:00 2022-11-06 08:00:00 [facility] [id number] [facility] 2022-10-16 08:00:00 2022-10-16 23:59:00 [facility] [id number] [facility] 2022-10-13 00:00:00 2022-10-13 00:00:00 Patient Secure Msg Cedric [facility] BUILDING 1.2.840.114 350.1.13.10 4.2.7.2.686 [id number] [facility] 2022-10-12 16:00:00 2022-10-12 16:15:00 Candy Puller Visit 2, Adc [facility] 1.2.840.114 350.1.13.10 4.2.7.2.686 [id number] [facility] 2022-10-12 16:00:00 2022-10-12 16:00:00 [facility] [id number] [facility] 2022-10-12 15:40:00 2022-10-12 15:58:43 Office Visit Cedric [facility] 1.2.840.114 350.1.13.10 4.2.7.2.686 [id number] [facility] 2022-10-10 14:20:00 2022-10-10 14:20:00 [facility] [id number] [facility] 2022-10-09 14:00:00 2022-10-09 14:00:00 [facility] [id number] [facility] 2022-10-09 00:00:00 2022-10-09 00:00:00 Telephone Cedric [facility] 1.2.840.114 350.1.13.10 4.2.7.2.686 [id number] [facility] 2022-10-06 10:20:00 2022-10-06 10:20:00 Outpatient [facility] [id number] [facility] 2022-10-05 00:00:00 2022-10-05 00:00:00 Telephone Cedric [facility] 1.2.840.114 350.1.13.10 4.2.7.2.686 [id number] [facility] 2022-09-30 00:00:00 2022-09-30 00:00:00 Patient [facility] 1.2.840.114 350.1.13.10 4.2.7.2.686 [id number] [facility] 2022-09-28 16:44:26 2022-09-28 23:59:00 Outpatient R [facility]IC [facility] [id number] [facility] 2022-09-28 16:44:26 2022-09-28 23:59:00 [facility] 1.2840.114 350.1.13.10 4.2.7.2.686 [id number] [facility] 2022-09-28 14:00:00 2022-09-28 15:36:43 [facility] 1.2840.114 350.1.13.10 4.2.7.2.686 [id number] [facility] 2022-09-28 00:00:00 2022-09-28 00:00:00 Orders Only Doctor Unassigned, [place] [facility] 1.2840.114 350.1.13.10 4.2.7.2.686 [id number] [facility] 2022-09-13 00:00:00 2022-09-13 00:00:00 Refill Doctor Unassigned, [place] [facility] 1.2840.114 350.1.13.10 4.2.7.2.686 [id number] [facility] 2022-08-08 09:20:00 2022-08-08 09:20:00 Outpatient R RACHEL SANTANA [facility] [id number] [facility] 2022-08-07 21:42:00 2022-08-08 02:11:00 Emergency X Michelle GREWAL [facility] ERT [id number] [facility] 2022-08-07 21:42:00 2022-08-08 02:11:00 Emergency Michelle Grewal Jackelyn [facility] 1.84.114 350.1.13.10 4.2.7.2.686 [id number] [facility] 2022-07-20 00:00:00 2022-07-20 00:00:00 Refill Alondra More [facility] PROF[facility] N[facility] BUILD[facility] 1.84.114 350.1.13.10 4.2.7.2.686 [id number] [facility] 2022-06-20 16:00:00 2022-06-20 16:00:00 Outpatient ÁNGELA MADRID OGECHUKWU [facility] [id number] [facility] 2022-06-18 14:20:00 2022-06-18 14:40:00 Urgent Care Josue Gates Unknown, Attending [facility] 1.84.114 350.1.13.10 4.2.7.2.686 [id number] [facility] 2022-06-18 14:20:00 2022-06-18 14:20:00 Outpatient R JOSUE GATES [facility] [id number] [facility] 2022-06-12 00:00:00 2022-06-12 00:00:00 Patient Secure Msg Doctor Unassigned, [place] [facility] 1.84.114 350.1.13.10 4.2.7.2.686 [id number] [facility] 2022-05-22 00:00:00 2022-05-22 00:00:00 Telephone [facility] 1.2.840.114 350.1.13.10 4.2.7.2.686 [id number] [facility] 2022-05-19 16:20:00 2022-05-19 17:45:59 Outpatient R ALONDRA MORE [facility] [id number] [facility] 2022-05-19 16:20:00 2022-05-19 17:45:59 Office Visit Alondra More [facility] BUILD[facility] 1.2.840.114 350.1.13.10 4.2.7.2.686 [id number] [facility] 2022-05-17 15:40:00 2022-05-17 16:09:17 Outpatient R MARIN PENA STRAHIL [facility] [id number] [facility] 2022-05-17 15:40:00 2022-05-17 16:09:17 Office Visit Marin Pena [facility] BUILDING 1.2.840.114 350.1.13.10 4.2.7.2.686 [id number] [facility] 2022-05-17 00:00:00 2022-05-17 00:00:00 Telephone Marin Pena [facility] 1..840.114 350.1.13.10 4.2.7.2.686 [id number] [facility] 2022-05-17 00:00:00 2022-05-17 00:00:00 Refill Alondra More [facility] BUILD[facility] 1..840.114 350.1.13.10 4.2.7.2.686 [id number] [facility] 2022-05-16 00:00:00 2022-05-16 00:00:00 Patient Secure Rachel Rodriguez [facility] BUILD[facility] 1..840.114 350.1.13.10 4.2.7.2.686 [id number] [facility] 2022-05-11 12:00:00 2022-05-11 12:15:00 Candy Puller Visit [facility] Sleep Lab Marin Pena [facility] 1.840.114 350.1.13.10 4.2.7.2.686 [id number] [facility] 2022-05-11 12:00:00 2022-05-11 12:00:00 Outpatient R MARIN PENA STRAOKLaine [facility] [id number] [facility] 2022-05-11 00:00:00 2022-05-11 00:00:00 Orders Only Doctor Unassigned, [place] [facility] 1.84.114 350.1.13.10 4.2.7.2.686 [id number] [facility] 2022-05-08 14:20:00 2022-05-08 14:56:47 Outpatient R MILENA SANTANAFELIPE [facility] [id number] [facility] 2022-05-08 14:20:00 2022-05-08 14:56:47 Office Visit Rachel Santana [facility] 1..840.114 350.1.13.10 4.2.7.2.686 [id number] [facility] 2022-05-08 14:20:00 2022-05-08 14:20:00 Outpatient R CEDRIC, QIANGJUN [facility] [id number] [facility] 2022-04-25 15:00:00 2022-04-25 16:00:57 Outpatient Alexandr ALONDRA MORE [facility] [id number] [facility] 2022-04-25 15:00:00 2022-04-25 16:00:57 Office Visit Alondra More [facility] 1.2.840.114 350.1.13.10 4.2.7.2.686 [id number] [facility] 2022-04-18 15:40:00 2022-04-18 16:53:22 Outpatient Alexandr ALONDRA MORE [facility] [id number] [facility] 2022-04-18 15:40:00 2022-04-18 16:53:22 Office Visit Alondra More Roslyn [facility] 1.2.840.114 350.1.13.10 4.2.7.2.686 [id number] [facility] 2022-04-18 15:40:00 2022-04-18 15:40:00 Outpatient ALONDRA KHOURY [facility] [id number] [facility] 2022-04-11 00:00:00 2022-04-11 00:00:00 Patient Secure Msg Doctor Unassigned, [place] [facility] 1.2.840.114 350.1.13.10 4.2.7.2.686 [id number] [facility] 2022-04-10 13:50:39 2022-04-10 23:59:00 Outpatient R ALONDRA MORE [facility] [id number] [facility] 2022-04-10 14:00:00 2022-04-10 14:00:00 Outpatient RENÉE KHOURYBETH [facility] [id number] [facility] 2022-04-06 16:00:00 2022-04-06 16:00:00 Urgent Care Kaylyn Marlow Unknown, [facility] 1.2.840.114 350.1.13.10 4.2.7.2.686 [id number] [facility] 2022-04-06 16:00:00 2022-04-06 15:43:01 Outpatient R KAYLYN MARLOW [facility] [id number] [facility] 2022-04-05 14:14:21 2022-04-05 23:59:00 Outpatient R ÁNGELA LABOY OGECHUKWU [facility] [id number] [facility] 2022-04-05 14:14:21 2022-04-05 23:59:00 Hospital Encounter Ana, Marlenebarry [facility] 1.2.840.114 350.1.13.10 4.2.7.2.686 [id number] [facility] 2022-04-03 09:22:59 2022-04-03 23:59:00 Hospital Encounter Ana Marlenebarry [facility] 1.2.840.114 350.1.13.10 4.2.7.2.686 [id number] [facility] 2022-04-03 09:22:59 2022-04-03 09:22:59 Outpatient R ÁNGELA LABOY OGECHUKWU [facility] [id number] [facility] 2022-04-03 08:51:53 2022-04-03 09:21:00 Outpatient R ÁNGELA LABOY OGECHUKWU [facility] [id number] [facility] 2022-04-03 08:51:53 2022-04-03 09:21:00 Hospital Encounter Ángela Laboy [facility] 1.2.840.114 350.1.13.10 4.2.7.2.686 [id number] [facility] 2022-04-03 08:00:00 2022-04-03 08:40:55 Office Visit Ángela Laboy [facility] BUILDING 1.2.840.114 350.1.13.10 4.2.7.2.686 [id number] [facility] 2022-04-03 08:00:00 2022-04-03 08:00:00 Outpatient R [facility] [id number] [facility] 2022-03-28 16:45:00 2022-03-28 17:00:00 Candy Puller Visit Poravi, Adc Lab Main Natalio Rinaldi Elizabeth A [facility] BUILDING 1.2.840.114 350.1.13.10 4.2.7.2.686 [id number] [facility] 2022-03-28 14:20:00 2022-03-28 16:41:34 Outpatient R ALONDRA MORE [facility] [id number] [facility] 2022-03-28 14:20:00 2022-03-28 16:41:34 [facility] 1.2.840.114 350.1.13.10 4.2.7.2.686 [id number] [facility] 2022-03-28 14:20:00 2022-03-28 16:41:34 Outpatient R ALONDRA MORE [facility] [id number] [facility] 2022-03-28 00:00:00 2022-03-28 00:00:00 Orders Only Doctor Unassigned, [place] [facility] 1.2.840.114 350.1.13.10 4.2.7.2.686 [id number] [facility] 2022-01-20 12:40:00 2022-01-23 14:00:00 Hospital Encounter Holli Aburto Jayleen García [facility] 1.2.840.114 350.1.13.10 4.2.7.2.686 [id number] [facility] 2022-01-20 12:40:00 2022-01-23 14:00:00 Inpatient X JAYLEEN GARCÍA [facility] LAXMI [id number] [facility] 2019-07-31 18:23:56 2019-07-31 20:48:00 Emergency X SEBASTIEN KOCH [facility] ERT [id number] [facility] Results Test Description Test Time Test Comments Results Result Co [facility] [id number] 03:23:49CHEST SINGLE VIEW CLINICAL HISTORY: Urinary tract infection. Fever. ORDERING PHYSICIAN: KYLAH FELIZ TECHNIQUE: Frontal view of chest COMPARISON: 09/28/2022 FINDINGS: There is a normal cardiomediastinal silhouette. The pulmonary vascularitydoes not appear congested. The lungs appear clear demonstrating no focalpulmonary consolidation, pleural effusion, or pneumothorax. No acuteosseous process is observed.[facility] [id number] 03:02:00* Test Item Value Reference Range Interpretation Comme nts POCT PREG (test code = 1605) Negative On board controls acceptable with C Line (test code = 3574) Yes POCT PREG LOT # (test code = 3575) [id number] POCT PREG TEST DATE ( test code = 3576) 2024-09-30 Lab Interpretation (test cod e = 02087-0) Normal [facility] SARS-COV-2 ANTIGEN (BINAX NOW)2023-05-08 19:56:00* Test Item Value Reference Range Interpretation Comme nts POCT SARS-COV-2 ANTIGEN (test code = 01605-2) Not Detected Not Detected On board controls acceptable with C Line (test code = 3574) No TAIWO (test code = TAIWO) accurate developme nt and interpretation of all internal controls Lab Interpretation (test code = 70823-2) Normal [facility] MOLECULAR [id number] 19:55:09* Test Item Value Reference Range Interpretation Comme nts POCT Molecular FluA (test co de = 64730-8) Negative Negative POCT Molecular FluB (test co de = 78849-7) Negative Negative Lab Interpretation (test cod e = 48254-0) Normal [facility] MOLECULAR [id number] 19:22:15* Test Item Value Reference Range Interpretation Comme nts POCT Molecular Strep (test c ode = 61718-5) Negative Negative Lab Interpretation (test cod e = 52294-9) Normal [facility]. METABOLIC PANEL (42408)2023-03-13 01:55:39* Test Item Value Reference Range Interpretation Comme nts NA (test code = 6413855339) 140 mmol/L 135-145 K (test code = 0340407324) 3.9 mmol/L 3.5-5.0 CL (test code = 0252020336) 104 mmol/L 98-108 CO2 TOTAL (test code = 5313958890) 28 mmol/L 23-31 AGAP (test code = 2708434649) 8 2-16 BUN (test code = 4150013064) 8 mg/dL 7-23 GLUCOSE (test code = 6457641170) 94 mg/dL 70-110 CREATININE (test code = 4330186211) 0.65 mg/dL 0.50-1.04 TOTAL BILI (test code = 3151083718) 0.2 mg/dL 0.1-1.1 CALCIUM (test code = 9096048374) 9.1 mg/dL 8.6-10.6 T PROTEIN (test code = 8616940435) 7.9 g/dL 6.3-8.2 ALBUMIN (test code = 9908965055) 4.3 g/dL 3.5-5.0 ALK PHOS (test code = 5303205668) 70 U/L 34-122 ALTv (test code = 1742-6) 30 U/L 5-35 AST(SGOT) (test code = 3422521588) 35 U/L 13-40 eGFR (test code = 5985655712) 100.0 mL/min/1.73m2 TAIWO (test code = TAIWO) Association of Glomerular Filtration Rate (GFR) and Staging of Kidney Disease* + + +- +| GFR (mL/min/1.73 m2) ?| With Kidney Damage ?| ?Without Kidney Damage+ ------+ ----+ ------+| ?>90 ?| ?Stage one ?| ? Normal ?+ -+ + -+| ?60-89 ?| ?Stage two ?| ? Decreased GFR ? + + +- +| ?30-59 ?| ?Stage three ?| ? Stage three ? + + +- +| ?15-29 ?| ?Stage four ? | ? Stage four ?+ -+ + -+| ?<15 (or dialysis) ? ?| ?Stage five ? | ? Stage five ?+ -+ + -+ *Each stage assumes the associated GFR level has been in effect for at least three months. ?Stages 1 to 5, with or without kidney disease, indicate chronic kidney disease. Notes: Determination of stages one and two (with eGFR >59mL/min/1.73 m2) requires estimation of kidney damage for at least three months as defined by structural or functional abnormalities of the kidney, manifested by either:Pathological abnormalities or Markers of kidney damage (including abnormalities in the composition of the blood or urine or abnormalities in imaging tests). [facility] WITH [id number] 01:44:20* Test Item Value Reference Range Interpretation Comme nts WBC (test code = 6690-2) 10.40 See_Comment [Automated Jott] The system which generated this result transmitted reference range: 4.30 - 11.10 10*3/?L. The reference range was not used to interpret this result as normal/abnormal. RBC (test code = 789-8) 4.82 See_Comment [Automated Jott] The system which generated this result transmitted reference range: 3.93 - 5.25 10*6/?L. The reference range was not used to interpret this result as normal/abnormal. HGB (test code = 718-7) 12.5 g/dL 11.6-15.0 HCT (test code = 4544-3) 37.8 % 35.7-45.2 MCV (test code = 787-2) 78.4 fL 80.6-95.5 L MCH (test code = 785-6) 25.9 pg 25.9-32.8 MCHC (test code = 786-4) 33.1 g/dL 31.6-35.1 RDW-SD (test code = 69056-1) 43.1 fL 39.0-49.9 RDW-CV (test code = 788-0) 15.1 % 12.0-15.5 PLT (test code = 777-3) 293 See_Comment [Automated messa ge] The system which generated this result transmitted reference range: 166 - 358 10*3/?L. The reference range was not used to interpret this result as normal/abnormal. MPV (test code = 56025-1) 10.1 fL 9.5-12.9 NRBC/100 WBC (test code = 3982754668) 0.0 See_Comment [Automated [place] ssage] The system which generated this result transmitted reference range: 0.0 - 10.0 /100 WBCs. The reference range was not used to interpret this result as normal/abnormal. NRBC x10^3 (test code = 1291966996) See_Comment [Automated messa ge] The system which generated this result transmitted reference range: 10*3/?L. The reference range was not used to interpret this result as normal/abnormal. GRAN MAT (NEUT) % (test code = 770-8) 61.8 % IMM GRAN % (test code = 5283138924) 0.30 % LYMPH % (test code = 736-9) 28.7 % MONO % (test code = 5905-5) 7.3 % EOS % (test code = 713-8) 1.4 % BASO % (test code = 706-2) 0.5 % GRAN MAT x10^3(ANC) (test code = 6671234974) 6.43 10*3/uL 1.88-7.09 IMM GRAN x10^3 (test code = 6356856617) 0.03 10*3/uL 0.00-0.06 LYMPH x10^3 (test code = 731-0) 2.98 10*3/uL 1.32-3.29 MONO x10^3 (test code = 742-7) 0.76 10*3/uL 0.33-0.92 EOS x10^3 (test code = 711-2) 0.15 10*3/uL 0.03-0.39 BASO x10^3 (test code = 704-7) 0.05 10*3/uL 0.01-0.07 Lab Interpretation (test code = 27809-8) [id number] Test Item Value Reference Range Interpretation Comme nts POCT PREG (test code = 1605) Negative On board controls acceptable with C Line (test code = 3574) Yes POCT PREG LOT # (test code = 3575) [id number] POCT PREG TEST DATE ( test code = 3576) 07/25/2024 Lab Interpretation (test cod e = 02872-1) [facility]2022-12-21 17:08:00* Test Item Value Reference Range Interpretation Comme nts ABO & RH (test code = 20) O Positive [facility] BHCG (QUANTITATIVE)2022-12-21 15:50:37* Test Item Value Reference Range Interpretation Comme nts BETA HCG (test code = 0076725161) 1790.00 See_Comment [Automated Amoreliea ge] The system which generated this result transmitted reference range: Non- female and male patients: <5 mIU/mL. The reference range was not used to interpret this result as normal/abnormal. TAIWO (test code = TAIWO) Gestational Age ?Range (mIU/mL) 1-10 ?Weeks ?80-38962864-01 Weeks ?26676-09415147-11 Weeks ?2934-09451866-21 Weeks ?0106-607199 Biotin has been reported to cause a negative bias, interpret results relative to patient's use of biotin. [facility] - ONCE [id number] 15:06:00 * Test Item Value Reference Range Interpretation Comme nts ABO & RH (test code = 20) O Positive IAT (test code = 1185) Negative [facility] [id number] 14:46:00* Test Item Value Reference Range Interpretation Comme nts POCT PREG (test code = 1605) Positive On board controls acceptable with C Line (test code = 3574) Yes POCT PREG LOT # (test code = 3575) [id number] POCT PREG TEST DATE (test code = 3576) 04/27/2024 Lab Interpretation (test cod e = 82732-0) Normal [facility] MOLECULAR [id number] 20:57:04* Test Item Value Reference Range Interpretation Comme nts POCT Molecular FluA (test co de = 65010-2) Positive Negative A Lab Interpretation (test cod e = 28124-5) Abnormal [facility] MOLECULAR [id number] 20:55:03* Test Item Value Reference Range Interpretation Comme nts POCT Molecular Strep (test c ode = 77509-8) Negative Negative Lab Interpretation (test cod e = 29153-2) Normal [facility] MOLECULAR [id number] 20:44:38* Test Item Value Reference Range Interpretation Comme nts POCT Molecular FluA (test co de = 22694-3) Negative Negative POCT Molecular FluB (test co de = 55400-6) Negative Negative Lab Interpretation (test cod e = 04191-1) Normal [facility] MOLECULAR [id number] 20:38:38* Test Item Value Reference Range Interpretation Comme nts POCT Molecular Strep (test c ode = 39455-1) Negative Negative Lab Interpretation (test cod e = 37539-8) Normal [facility] HospitalCYCL[facility] CITRULLINATED [id number] 00:16:38* Test Item Value Reference Range Interpretation Comme nts CCP IgG (test code = 8397120385) 3.1 U 0-20 TAIWO (test code = TAIWO) INTERPRETATION: UNITS: Negative <20Weak Positive 20-39Moderate Positive 40-59Strong Positive >=60 A positive result indicates the presence of CCP IgG antibodies and suggests the possibility of RA antibodies and suggests the possibility of SLE. A negative result indicates no CCP IgG antibodies or levels below the cut-off ofthe assay. Lab Interpretation (test code = 66345-4) Normal [facility] HospitalCYCL[facility] CITRULLINATED [id number] 00:16:38* Test Item Value Reference Range Interpretation Comme nts CCP IgG (test code = 8946521518) 3.1 U 0-20 TAIWO (test code = TAIWO) INTERPRETATION: UNITS: Negative <20Weak Positive 20-39Moderate Positive 40-59Strong Positive >=60 A positive result indicates the presence of CCP IgG antibodies and suggests the possibility of RA antibodies and suggests the possibility of SLE. A negative result indicates no CCP IgG antibodies or levels below the cut-off ofthe assay. Lab Interpretation (test code = 36965-6) Normal [facility] HospitalANTI-NUCLEAR ANTIBODY-PATHOLOGIST [id number] 16:38:36ANA - Pathologist InterpretationANA HEp-2 IIFA Pathologist Interpretation Report Patient Name: Chema Corbett ? ?Antinuclear Antibody (MIKA) Test (Anti-Cell Antibodies Test) Indirect Immunofluorescence Assay on HEp-2 Cells Screening titer: 1:80 (adults, > 18 years old), 1:40 (pediatrics, <= 18 years old)?Result: The antinuclear antibody (MIKA) screen is negative on interpretation. However, there are rare cells with a weak, fine speckled pattern, but this is not uniformly observed. If there remains clinical suspicion for an autoimmune disorder, repeating the MIKA screen at a later date with a new specimen is recommended. ? ? Remarks:This patient has a negative antinuclear antibody (MIKA) screening test. This suggests that the patient likely does not have a systemic autoimmune rheumatic disease that is strongly associated with a positive MIKA, such as systemic lupus erythematosus (MIKA positive in ~95-100%), systemic sclerosis (MIKA positive in ~60-80%), or the following disorders in which MIKA positivity is part of the diagnostic criteria: drug-induced lupus, autoimmune hepatitis, or mixed connective tissue disease. However, the MIKA may be negative in rare cases of systemic lupus erythematosus and systemic sclerosis. The MIKA may also be negative in ~20% of patients presenting with autoimmune hepatitis. Additionally, MIKA positivity is less sensitive in the diagnosis of Sjogren's syndrome (~40-70%) and dermatomyositis/polymyositis (~30-80%). MIKA is not usefulfor the diagnosis of rheumatoid arthritis, multiple sclerosis, idiopathic thrombocytopenic purpura, thyroid disease, discoid lupus, or fibromyalgia. (https://pubmed.ncbi.nlm.nih.gov/13588663/, https:/ /pubmed.ncbi.nlm.nih.gov/69019467/) ? ? Therefore, a diagnosis cannot be based exclusively on MIKA detection and/or pattern and thus should be made via the integration of patient history, physical exam findings, and other diagnostic tests as clinically indicated. Kylah Caba MD ?03/30/2022 ?11:38 AM 03/30/2022 11:38 AM [facility] SERVICESWil[facility] HospitalANTI- NUCLEAR ANTIBODY-PATHOLOGIST [id number] 16:38:36ANA - Pathologist InterpretationANA HEp-2 IIFA Pathologist Interpretation Report Patient Name: Chema Corbett ? ?Antinuclear Antibody (MIKA) Test (Anti- Cell Antibodies Test) Indirect Immunofluorescence Assay on HEp-2 Cells Screening titer: 1:80 (adults, > 18 years old), 1:40 (pediatrics, <= 18 years old)?Result: The antinuclear antibody (MIKA) screen is negative on interpretation. However, there are rare cells with a weak, fine speckled pattern, but this is not uniformly observed. If there remains clinical suspicion for an autoimmune disorder, repeating the MIKA screenat a later date with a new specimen is recommended. ? ? Remarks:This patient has a negative antinuclear antibody (MIKA) screening test. This suggests that the patient likely does not have a systemic autoimmune rheumatic disease that is strongly associated with a positive MIKA, such as systemic lupus erythematosus (MIKA positive in ~95-100%), systemic sclerosis (MIKA positive in ~60-80%), or the following disorders in which MIKA positivity is part of the diagnostic criteria: drug-induced lupus, autoimmune hepatitis, or mixed connective tissue disease. However, the MIKA may be negative in rare casesof systemic lupus erythematosus and systemic sclerosis. The MIKA may also be negative in ~20% of patients presenting with autoimmune hepatitis. Additionally, MIKA positivity is less sensitive in the diagnosis of Sjogren's syndrome (~40-70%) and dermatomyositis/polymyositis (~30-80%). MIKA is not useful for the diagnosis of rheumatoid arthritis, multiple sclerosis, idiopathic thrombocytopenic purpura, thyroid disease, discoid lupus, or fibromyalgia. (https://pubmed.ncbi.nlm.nih.gov/97714370/, https: //pubmed.ncbi.nlm.nih.gov/16221128/) ? ? Therefore, a diagnosis cannot be based exclusively on MIKA detection and/or pattern and thus should be made via the integration of patient history, physical exam findings, and other diagnostic tests as clinically indicated. Kylah Caba MD ?03/30/2022 ?11:38AM 03/30/2022 11:38 AM [facility] SERVICESWil[facility]ger [facility] HospitalANTI- NUCLEAR ANTIBODY [id number] 16:23:26* Test Item Value Reference Range Interpretation Comme nts MIKA (test code = 1117490216) Negative Negative TAIWO (test code = TAIWO) Negative: ?No Anti-Nuclear Antibodies detected by IFA. Positive: ?MIKA IFA screen performed with a 1:80 dilution in adults and a 1:40 dilution in pediatrics. ?A titer is performed and reported separately when the MIKA is "Positive" or when "Cytoplasmic staining is observed." Lab Interpretation (test code = 99952-9) Normal [facility] HospitalANTI-NUCLEAR ANTIBODY [id number] 16:23:26* Test Item Value Reference Range Interpretation Comme nts MIKA (test code = 3457478284) Negative Negative TAIWO (test code = TAIWO) Negative: ?No Anti-Nuclear Antibodies detected by IFA. Positive: ?MIKA IFA screen performed with a 1:80 dilution in adults and a 1:40 dilution in pediatrics. ?A titer is performed and reported separately when the MIKA is "Positive" or when "Cytoplasmic staining is observed." Lab Interpretation (test code = 86820-3) Normal [facility] HospitalANTICARDIOLIPIN [id number] 01:54:42 * Test Item Value Reference Range Interpretation Comments Anticardiolipin Antibody IgG (test code = 0648188319) See_Comment [Automated message] The system which generated this result transmitted reference range: 0.0 - 10.0 GPL. The reference range was not used to interpret this result as normal/abnormal . Anticardiolipin Antibody IgM (test code = 1468029730) See_Comment [Automated message] The system which generated this result transmitted reference range: 0.0 - 10.0 MPL. The reference range was not used to interpret this result as normal/abnormal . Anticardiolipin Antibody IgA (test code = 4801914776) See_Comment [Automated message] The system which generated this result transmitted reference range: 0.0 - 15.0 APL. The reference range was not used to interpret this result as normal/abnormal . TAIWO (test code = TAIWO) Interpretation: ? IgG ?IgM ?IgANegative Values: ? <10.0 ?<10.0 ? <15.0Indeterminate ("Colon" zone) Values: ? ?10.0-19.0 ? ?10.0-25.0 ? ? 15.0-27.0Medium Values: ? 20.0-80.0 ? ?26.0-80.0 ? ? 28.0-80.0High Positive Values: ? >80.0 ?>80.0 ? >80.0 Note:Medium-high levels of anticardiolipin antibodies (mainly of the IgG isotype)have been associated with thrombosis, recurrent losses andthrombocytopenia in patients with Antiphospholipid Syndrome and SLE relateddisorders.It is recommended to repeat the test that give values in theIndeterminate "Colon" zone range at a later date (i.e. 4-6 weeks) to confirmpositivity. ?Josue R et al. ?J Thromb Haemost 2006; 4: 2210-4 Lab Interpretation (test code = 18921-0) Normal [facility] HospitalANTICARDIOLIPIN [id number] 01:54:42 * Test Item Value Reference Range Interpretation Comments Anticardiolipin Antibody IgG (test code = 0662021792) See_Comment [Automated message] The system which generated this result transmitted reference range: 0.0 - 10.0 GPL. The reference range was not used to interpret this result as normal/abnormal . Anticardiolipin Antibody IgM (test code = 1559158055) See_Comment [Automated message] The system which generated this result transmitted reference range: 0.0 - 10.0 MPL. The reference range was not used to interpret this result as normal/abnormal . Anticardiolipin Antibody IgA (test code = 1051949641) See_Comment [Automated message] The system which generated this result transmitted reference range: 0.0 - 15.0 APL. The reference range was not used to interpret this result as normal/abnormal . TAIWO (test code = TAIWO) Interpretation: ? IgG ?IgM ?IgANegative Values: ? <10.0 ?<10.0 ? <15.0Indeterminate ("Colon" zone) Values: ? ?10.0-19.0 ? ?10.0-25.0 ? ? 15.0-27.0Medium Values: ? 20.0-80.0 ? ?26.0-80.0 ? ? 28.0-80.0High Positive Values: ? >80.0 ?>80.0 ? >80.0 Note:Medium-high levels of anticardiolipin antibodies (mainly of the IgG isotype)have been associated with thrombosis, recurrent losses andthrombocytopenia in patients with Antiphospholipid Syndrome and SLE relateddisorders.It is recommended to repeat the test that give values in theIndeterminate "Colon" zone range at a later date (i.e. 4-6 weeks) to confirmpositivity. ?Josue R et al. ?J Thromb Haemost 2006; 4: 2210-4 Lab Interpretation (test code = 22487-2) Normal [facility] HospitalANTI-DOUBLE STRANDED [id number] 18:47:51* Test Item Value Reference Range Interpretation Comme nts ANTI-DSDNA (test code = 7458181720) See_Comment [Automated message] The system which generated this result transmitted reference range: 0.0 - 4.0 IU/mL. The reference range was not used to interpret this result as normal/abnormal. TAIWO (test code = TAIWO) Negative ? ?< or = 4 IU/mLPositive ? ? ?> or = 10 IU/mLIndetermin ate ?5-9 IU/mL Lab Interpretation (test code = 27908-6) [facility]2022-09-07 18:47:51* Test Item Value Reference Range Interpretation Comme nts ANTI-SMRNP (test code = 6308455961) Negative Negative TAIWO (test code = TAIWO) Positive - Antibod y detected.Negative - No antibody detected. Lab Interpretation (test code = 46379-6) [place] 255562022-09-07 18:47:51* Test Item Value Reference Range Interpretation Comme nts ANTI-SCL70 (test code = 8636099869) Negative Negative TAIWO (test code = TAIWO) Positive - Antibod y detected.Negative - No antibody detected. Lab Interpretation (test code = 49143-9) [facility] [id number] 18:47:51* Test Item Value Reference Range Interpretation Comme nts ANTI-DSDNA (test code = 7255239475) See_Comment [Automated message] The system which generated this result transmitted reference range: 0.0 - 4.0 IU/mL. The reference range was not used to interpret this result as normal/abnormal. TIAWO (test code = TAIWO) Negative ? ?< or = 4 IU/mLPositive ? ? ?> or = 10 IU/mLIndetermin ate ?5-9 IU/mL Lab Interpretation (test code = 01296-5) [facility]2022-09-07 18:47:51* Test Item Value Reference Range Interpretation Comme nts ANTI-SMRNP (test code = 4546337486) Negative Negative TAIWO (test code = TAIWO) Positive - Antibod y detected.Negative - No antibody detected. Lab Interpretation (test code = 21866-8) [place] [address]2022-09-07 18:47:51* Test Item Value Reference Range Interpretation Comme nts ANTI-SCL70 (test code = 1520741809) Negative Negative TAIWO (test code = TAIWO) Positive - Antibod y detected.Negative - No antibody detected. Lab Interpretation (test code = 43539-7) Normal [facility] [id number] 15:40:18* Test Item Value Reference Range Interpretation Comme nts RF (test code = 7226697647) See_Comment [Automated messa ge] The system which generated this result transmitted reference range: <20 IU/mL. The reference range was not used to interpret this result as normal/abnormal. Lab Interpretation (test code = 64365-7) Normal [facility] [id number] 15:40:18* Test Item Value Reference Range Interpretation Comme nts RF (test code = 5157186314) See_Comment [Automated messa ge] The system which generated this result transmitted reference range: <20 IU/mL. The reference range was not used to interpret this result as normal/abnormal. Lab Interpretation (test code = 87829-2) Normal [facility] HospitalHCV [id number] 07:58:52* Test Item Value Reference Range Interpretation Comme nts HCV Ab (test code = 60662-0) Negative HCV Semi-Quantitative (test code = 82805-1) [facility] HospitalHCV [id number] 07:58:52* Test Item Value Reference Range Interpretation Comme nts HCV Ab (test code = 91691-9) Negative HCV Semi-Quantitative (test code = 51984-5) [facility] HospitalFERRITIN [id number] 00:18:08* Test Item Value Reference Range Interpretation Comme nts FERRITIN (test code = 1721213119) 4.3 ng/mL 6-137 L TAIWO (test code = TAIWO) Biotin has been reported to cause a negative bias, interpret results relative to patient's use of biotin. Lab Interpretation (test code = 48262-2) Abnormal [facility]FER[facility] [id number] 00:18:08* Test Item Value Reference Range Interpretation Comme nts FERRITIN (test code = 4925256915) 4.3 ng/mL 6-137 L TAIWO (test code = TAIWO) Biotin has been reported to cause a negative bias, interpret results relative to patient's use of biotin. Lab Interpretation (test code = 27287-4) Abnormal [facility] HospitalTHYROID STIMULATING [id number] 00:14:06 * Test Item Value Reference Range Interpretation Comme nts TSH (test code = 1032127116) See_Comment [Automated messa ge] The system which generated this result transmitted reference range: 0.45 - 4.70 mIU/L. The reference range was not used to interpret this result as normal/abnormal. Lab Interpretation (test code = 42363-6) Normal [facility] HospitalTHYROID STIMULATING [id number] 00:14:06 * Test Item Value Reference Range Interpretation Comme nts TSH (test code = 0050876341) See_Comment [Automated messa ge] The system which generated this result transmitted reference range: 0.45 - 4.70 mIU/L. The reference range was not used to interpret this result as normal/abnormal. Lab Interpretation (test code = 13522-5) [facility] [id number] 00:00:25* Test Item Value Reference Range Interpretation Comme nts FREE T4 (test code = 4692675192) See_Comment [Automated messa ge] The system which generated this result transmitted reference range: 0.78 - 2.20 ng/dL:. The reference range was not used to interpret this result as normal/abnormal. Lab Interpretation (test code = 63543-5) Normal [facility] [id number] 00:00:25* Test Item Value Reference Range Interpretation Comme nts FREE T4 (test code = 3267878011) See_Comment [Automated messa ge] The system which generated this result transmitted reference range: 0.78 - 2.20 ng/dL:. The reference range was not used to interpret this result as normal/abnormal. Lab Interpretation (test code = 33951-3) Normal [facility] [id number] 00:00:05* Test Item Value Reference Range Interpretation Comme nts FREE T3 (test code = 9216488030) 3.41 pg/mL 2.77-5.27 Lab Interpretation (test cod e = 59523-8) Normal [place] [id number] 00:00:05* Test Item Value Reference Range Interpretation Comme nts FREE T3 (test code = 3249507751) 3.41 pg/mL 2.77-5.27 Lab Interpretation (test cod e = 65512-3) Normal [facility] IRON BINDING [id number] 23:54:03 * Test Item Value Reference Range Interpretation Comme nts TIBC (test code = 6763637715) 488 ug/dL 250-410 H % FE SAT (test code = 3634153370) 4 % 20-50 L Lab Interpretation (test cod e = 14318-4) Abnormal [facility] IRON BINDING [id number] 23:54:03 * Test Item Value Reference Range Interpretation Comme nts TIBC (test code = 9619592689) 488 ug/dL 250-410 H % FE SAT (test code = 3908400946) 4 % 20-50 L Lab Interpretation (test cod e = 08140-9) Abnormal [place] [id number] 23:42:42* Test Item Value Reference Range Interpretation Comme nts IRON (test code = 8189489557) 20 ug/dL 50-160 L Lab Interpretation (test cod e = 17870-6) Abnormal [facility] HospitalCREATINE [id number] 23:42:42* Test Item Value Reference Range Interpretation Comme nts CK (test code = 4704890031) 76 U/L 33-194 Lab Interpretation (test cod e = 65283-2) Normal [place] [id number] 23:42:42* Test Item Value Reference Range Interpretation Comme nts IRON (test code = 8655966912) 20 ug/dL 50-160 L Lab Interpretation (test cod e = 43504-1) Abnormal [facility] HospitalCREATINE [id number] 23:42:42* Test Item Value Reference Range Interpretation Comme nts CK (test code = 8565173433) 76 U/L 33-194 Lab Interpretation (test cod e = 63737-0) Normal [facility] [id number] 22:54:08* Test Item Value Reference Range Interpretation Comme nts ESR (test code = 25979-5) See_Comment H [Automated messa ge] The system which generated this result transmitted reference range: 0 - 20 mm/HR. The reference range was not used to interpret this result as normal/abnormal. Lab Interpretation (test code = 44875-0) Abnormal [facility] [id number] 22:54:08* Test Item Value Reference Range Interpretation Comme nts ESR (test code = 24373-1) See_Comment H [Automated messa ge] The system which generated this result transmitted reference range: 0 - 20 mm/HR. The reference range was not used to interpret this result as normal/abnormal. Lab Interpretation (test code = 32403-0) Abnormal [facility] WITH [id number] 22:35:28* Test Item Value Reference Range Interpretation Comme nts WBC (test code = 6690-2) See_Comment [Automated messa ge] The system which generated this result transmitted reference range: 4.30 - 11.10 10*3/?L. The reference range was not used to interpret this result as normal/abnormal. RBC (test code = 789-8) See_Comment [Automated messa ge] The system which generated this result transmitted reference range: 3.93 - 5.25 10*6/?L. The reference range was not used to interpret this result as normal/abnormal. HGB (test code = 718-7) 9.8 g/dL 11.6-15 L HCT (test code = 4544-3) 33.6 % 35.7-45.2 L MCV (test code = 787-2) 69.7 fL 80.6-95.5 L MCH (test code = 785-6) 20.3 pg 25.9-32.8 L MCHC (test code = 786-4) 29.2 g/dL 31.6-35.1 L RDW-SD (test code = 72759-1) 41.9 fL 39-49.9 RDW-CV (test code = 788-0) 16.8 % 12-15.5 H PLT (test code = 777-3) See_Comment H [Automated messa ge] The system which generated this result transmitted reference range: 166 - 358 10*3/?L. The reference range was not used to interpret this result as normal/abnormal. MPV (test code = 49176-8) 10.0 fL 9.5-12.9 NRBC/100 WBC (test code = 5620448318) See_Comment [Automated me ssage] The system which generated this result transmitted reference range: 0.0 - 10.0 /100 WBCs. The reference range was not used to interpret this result as normal/abnormal. NRBC x10^3 (test code = 4415118195) See_Comment [Automated messa ge] The system which generated this result transmitted reference range: 10*3/?L. The reference range was not used to interpret this result as normal/abnormal. GRAN MAT (NEUT) % (test code = 770-8) 54.0 % IMM GRAN % (test code = 1018637359) 0.10 % LYMPH % (test code = 736-9) 34.6 % MONO % (test code = 5905-5) 7.8 % EOS % (test code = 713-8) 2.2 % BASO % (test code = 706-2) 1.3 % GRAN MAT x10^3(ANC) (test code = 4789954383) 3.67 10*3/uL 1.88-7.09 IMM GRAN x10^3 (test code = 1536473429) 0-0.06 LYMPH x10^3 (test code = 731-0) 2.35 10*3/uL 1.32-3.29 MONO x10^3 (test code = 742-7) 0.53 10*3/uL 0.33-0.92 EOS x10^3 (test code = 711-2) 0.15 10*3/uL 0.03-0.39 BASO x10^3 (test code = 704-7) 0.09 10*3/uL 0.01-0.07 H Lab Interpretation (test code = 32668-1) Abnormal [facility] WITH [id number] 22:35:28* Test Item Value Reference Range Interpretation Comme nts WBC (test code = 6690-2) See_Comment [Automated messa ge] The system which generated this result transmitted reference range: 4.30 - 11.10 10*3/?L. The reference range was not used to interpret this result as normal/abnormal. RBC (test code = 789-8) See_Comment [Automated messa ge] The system which generated this result transmitted reference range: 3.93 - 5.25 10*6/?L. The reference range was not used to interpret this result as normal/abnormal. HGB (test code = 718-7) 9.8 g/dL 11.6-15 L HCT (test code = 4544-3) 33.6 % 35.7-45.2 L MCV (test code = 787-2) 69.7 fL 80.6-95.5 L MCH (test code = 785-6) 20.3 pg 25.9-32.8 L MCHC (test code = 786-4) 29.2 g/dL 31.6-35.1 L RDW-SD (test code = 49227-0) 41.9 fL 39-49.9 RDW-CV (test code = 788-0) 16.8 % 12-15.5 H PLT (test code = 777-3) See_Comment H [Automated messa ge] The system which generated this result transmitted reference range: 166 - 358 10*3/?L. The reference range was not used to interpret this result as normal/abnormal. MPV (test code = 47662-3) 10.0 fL 9.5-12.9 NRBC/100 WBC (test code = 5942470670) See_Comment [Automated [place] ssage] The system which generated this result transmitted reference range: 0.0 - 10.0 /100 WBCs. The reference range was not used to interpret this result as normal/abnormal. NRBC x10^3 (test code = 6668241224) See_Comment [Automated messa ge] The system which generated this result transmitted reference range: 10*3/?L. The reference range was not used to interpret this result as normal/abnormal. GRAN MAT (NEUT) % (test code = 770-8) 54.0 % IMM GRAN % (test code = 3944113913) 0.10 % LYMPH % (test code = 736-9) 34.6 % MONO % (test code = 5905-5) 7.8 % EOS % (test code = 713-8) 2.2 % BASO % (test code = 706-2) 1.3 % GRAN MAT x10^3(ANC) (test code = 7181768617) 3.67 10*3/uL 1.88-7.09 IMM GRAN x10^3 (test code = 0744658808) 0-0.06 LYMPH x10^3 (test code = 731-0) 2.35 10*3/uL 1.32-3.29 MONO x10^3 (test code = 742-7) 0.53 10*3/uL 0.33-0.92 EOS x10^3 (test code = 711-2) 0.15 10*3/uL 0.03-0.39 BASO x10^3 (test code = 704-7) 0.09 10*3/uL 0.01-0.07 H Lab Interpretation (test code = 51213-8) Abnormal [facility] Notes Date/Time Note Provider Source 2023-10-02 15:26:34 u+v4Pk99e4D3yQTmpmlA +91caD3+uRmlHv aTbYvsnWsNuGj1XW6LyiTrx1X9A5j53686 T15:26:34 Medical records request received via fax from [facility] and faxed to [facility].Request scanned into chart along with fax confirmation. 78266-5Mjixdsubl encounter QoafVP1191-30-44Q42:27:39Telephone encounter NoteTXT1.2.840.896174.1.13.104.2.7 .2.635117|[id number] for patient kjrh49206-5WcqeYWIEYJQODATCxuohsgx d C-CDA narrative [id number] D Garcia MA[address] LrwkMbquntdufSotfkpduxEUKG31420262 15IBAXOTWLKQFKZAPYDJNWQO7663-49-30 T15:27:391.2.840.739585.1.72.3.15| 1.2.840.830369.1.13.104.2.7.2.7278 [id number] Keri Hinson MA [facility] 2023-08-04 21:15:00 Z9BnSj3b9jakPx7dqEv3 tEMcART3OcQvFo uFJnFFGjFYUWZBzPLqhADj/y4xPt+f202T21:15:00 Pt given printed and verbal discharge instructions regarding sinusitis, pharyngitis, & sore throats, encouraged hydration.Prescriptions provided.Discussed antibiotic therapy and to take until all completed unless adverse reaction occurs - if occurs, discontinue medication and follow up with pcp/seek medical attentionDiscussed Tylenol # 3 side affects and to avoid driving/operating machinery/or engaging in activities requiring alertness while taking.Pt verbalized understanding of instructions, pt awake alert oriented, resp reg unlabored, skin w/d, color appropriate for race, moves all ext well,pt encouraged to follow up with pcp.Advised to seek medical attention for new/prolonged/worsening of symptoms.No adverse reaction to meds given in ER noted upon discharge.Awake, alert oriented, resp reg unlabored, skin w/d, pt leaving amb with steady gait, accompanied by spouse, & in no apparent distress. 31597-2Wniejhcjm department JllcXD3389-47-28S98:57:54[facility] NoteTXT1.2.840.638352.1.13.104.2.7 .2.810255|[id number] for patient dlmk13071-3RzsgETLAFXOAXHOLqsvmfoz d C-CDA narrative wmnj286037896Yozagw L Williams RN[address] YracXtbnofoekPalwnyyepVZAB30084154 69VRRQBTNOODACLEQUENHIYQ9358-08-35 T21:57:541.2.840.036270.1.72.3.15| 1.2.840.348180.1.13.104.2.7.2.7278 [id number] Kylee Lopez RN [facility] 2023-08-04 19:17:06 X1C67VWeZJdQzF8zbYcA zRAFNcmeWfmrlg mk+8ygdE39eqowVeHUjoqXlc+dUlro0256T19:17:06 Pt to ed with family. Vss. Alert and ambulatory. C/o sore throat and fever with hx of strep. Flu positive this past week. 61901-8Yokxjywoo department Triage xmnfFH1005-49-34A86:17:56[facility] department Triage noteTXT1.2.840.447330.1.13.104.2.7 .2.934381|[id number] for patient ersk00113-2Wtdbjdltl department NoteLNNARRATIVEFormatted C-CDA narrative wqtp302916163Zzwsuh A Paul RN[address] Zpg[id number] 50NRIOFCYHOHFIFGKLWAZNQN1890-90-65 T19:17:561.2.840.564813.1.72.3.15| 1.2.840.037011.1.13.104.2.7.2.7278 [id number] Richa Snowden RN [facility] 2023-08-04 19:03:00 J/SprL+kzPuApnjflL7l VaBurESApU32oF iNNvNxWB/RxHbx3bWF4yMY4gJ62Tgx7662 -01-13T19:03:00 [facility] Emergency Department NotePatient Name: Chema CorbettDate of : 1980 42 year old femaleTreatment Room: [place] [address]Medical Record Number: [id number] Care Physician: PATIENT DOES NOT HAVE A PCPPatient Escorted by: Family [5]Mode of Arrival: Personal means [1]EMS Treatment Prior to ED Arrival:QUALITY CONTROL TECH RAW MATERIALS treatment: NoneTravel and Exposure Screening:SymptomsDoes patient have any of these symptoms?: (not recorded)Exposure ScreeningHas patient had contact with someone with a communicable disease in the last month?: (not recorded)Diseases exposed to:: (not recorded)Is Patient ?: (not recorded)Exposure Date: (not recorded)Chief Complaint:Chief ComplaintPatient presents with Fever Sore ThroatHistory of Present Illness:42 y.o. female with Lupus, no sinus congestion and sore throat x 1 week.Past Medical History/Immunizations:Past Medical History:Diagnosis Date MICHOACANO (acute kidney injury)in hospital and other renal issues Anxiety Asthma GERD (gastroesophageal reflux disease) History of cardiac murmur History of OH (myocardial infarction) History of multiple miscarriages Hypertension, benign Irregular heart beat Kidney stone Migraine Seasonal allergiesTetanus received in last 5 years: UnknownChildhood immunizations: Fl-de-jgdbAeelovrgd:AllergiesAller gen Reactions Amlodipine Other - See commentsMultiple side effects Dyazide [Triamterene-Hydrochlorothiazid] Other - See commentsCramping and fatiguePast Social History:Tobacco UseFormer; Cigarettes: Quit 01/20/2022; 0.10 packs/day for 20.00 yearsSmokeless Tobacco: Never used smokeless tobacco.Alcohol UseComments: rarely drinksDrug UseNever.Past Surgical History:Past Surgical History:Procedure Laterality Date DILATION/CURETTAGE,DIAGNOSTICafte r one of her miscarriagesReview of Systems:Review of SystemsConstitutional: Positive for chills, fatigue and fever.HENT: Positive for congestion, postnasal drip, rhinorrhea and sinus pressure.Eyes: Negative.Respiratory: Positive for cough.Cardiovascular: Negative.Gastrointestinal: Negative.Genitourinary: Negative.Musculoskeletal: Positive for myalgias.Skin: Negative.Neurological: Positive for light-headedness.Psychiatric/Behav ioral: Negative.Endocrine: Endocrine negativePhysical Exam:ED Triage Vitals [08/04/231917]Weight 104.3 kg (230 lb)Actual or estimated ActualHeight 1.626 m (5' 4")BP (!) 167/124Pulse 95Resp 20Temp 37.6 ?C (99.7 ?F)Temp source OralSpO2 97 %Measured on Room airPhysical ExamVitals and nursing note reviewed.Constitutional:General: She is not in acute distress.Appearance: Normal appearance. She is not ill-appearing, toxic-appearing or diaphoretic.HENT:Head: Normocephalic and atraumatic.Right Ear: Tympanic membrane normal.Left Ear: Tympanic membrane normal.Nose: Congestion and rhinorrhea present.Mouth/Throat:Mouth: Mucous membranes are moist.Pharynx: Posterior oropharyngeal erythema present. No oropharyngeal exudate.Eyes:Pupils: Pupils are equal, round, and reactive to light.Cardiovascular:Rate and Rhythm: Normal rate.Pulses: Normal pulses.Pulmonary:Effort: Pulmonary effort is normal. No respiratory distress.Breath sounds: No stridor. Rhonchi present.Abdominal:Palpations: Abdomen is soft.Musculoskeletal:General: Normal range of motion.Skin:General: Skin is warm.Capillary Refill: Capillary refill takes less than 2 seconds.Neurological:General: No focal deficit present.Mental Status: She is alert and oriented to person, place, and time.Psychiatric:Mood and Affect: Mood normal.Radiology:No orders to displayLab Results:Lab ResultsRAPID STREP SCREEN FOR GROUP A - NormalResult Value Ref RangeMolecular Strep Negative NegativePOCT RAPID STREP SCREEN FOR GROUP ATHROAT CULTUREEKG:If EKG completed, see Procedure Note.Orders and Treatments:Orders Placed This EncounterProcedures POCT Rapid Strep Screen For Group A Rapid Strep Screen For Group A Throat CultureOrders Placed This EncounterMedications ibuprofen (IBU) tablet 600 mg HYDROcodone-acetaminophen (NORCO) 10-325 mg tablet 1 tablet ondansetron (ZOFRAN-ODT) disintegrating tablet 4 mg dexAMETHasone (DECADRON) tablet 6 mgFirst Provider Eval:ED EventsNoneED COURSEDiagnosis/Impression as of 08/04/232055Sore throatAcute sinusitis, recurrence not specified, unspecified locationProcedures:ProceduresMDM:M edical Decision MakingAmount and/or Complexity of Data ReviewedLabs: ordered.RiskPrescription drug management.Flowsheet Documentation:Scoring Tools:No data recordedA) Sinusitis, BronchitisDisposition/Condition: Omnicef, Prednisone, Tylenol #3 , hydration, eR warnings/.ED DispositionNoneDischarge Medications:Patient's MedicationsSTART taking these medicationsNo medications on fileCONTINUE taking these medications which have NOT CHANGEDCARVEDILOL 12.5 MG TABLET Take 1 tablet by mouth in the morning and 1 tablet in the evening. Take with meals.FUROSEMIDE 40 MG TABLET Take 1 tablet by mouth in the morning.IBUPROFEN 600 MG TABLET Take 1 tablet by mouth every 6 (six) hours as needed for Temp > 38.5 C or Pain (scale 4-6).LOSARTAN 100 MG TABLET Take 1 tablet by mouth in the morning.SPIRONOLACTONE 25 MG TABLET Take 1 tablet by mouth in the morning.START taking Modified Medications as PrescribedNo medications on fileSTOP taking these medicationsNo medications on fileFollow-up: PCPElectronically signed by:Jomar Moyer MD08/04/232053 71372-1Wzlbgjygo Emergency department XndqJM3213-59-72M81:54:51Physician Emergency department NoteTXT1.2.840.635928.1.13.104.2.7 .2.240988|[id number] for patient tvnd84862-8Uyuimivqc department NoteLNNARRATIVEFormatted C-CDA narrative text[address] Lr[id number] 58PDKFDAEAUOVUJFSXTOJZNE7121-32-95 T20:54:511.2.840.851118.1.72.3.15| 1.2.840.614368.1.13.104.2.7.2.7278 [id number] [facility] 2023-08-01 23:28:06 LQCLS1EFy0iKi9D+w6hl k66Ad80RTSHBqx +5xJfMAb3KbblK2Y7wV2Cj0twjXzP82321 -01-10T23:28:06 Pt discharged with diagnosis of acute febrile illness, exposure to influenza, and uncontrolled HTN. Printed and verbal instructions reviewed with and given to patient. Pt verbalized understanding of teaching and recommended follow-up. Denies questions or concerns at this time. Pt ambulatory at discharge. Appears in no apparent distress. No ataxia noted. Accompanied by daughter. 75505-4Iapdqmjkn department XiiqBV8358-22-22J56:28:36[facility] department NoteTXT1.2.840.601588.1.13.104.2.7 .2.061598|[id number] for patient oqyy25841-3AglbOFHEMJPXIWUKsphtjee d C-CDA narrative [id number] Bingham RN[address]vdG[id number] 50YVFXGJKFZQELKKOZPKDPHE0031-46-85 T23:28:361.2.840.641408.1.72.3.15| 1.2.840.904939.1.13.104.2.7.2.7278 [id number] Tonia Bingham RN [facility] 2023-08-01 20:24:41 wTxdWZUZMkbfhxuNllEe KTRduo45zmdi4N eo5HNZb7n3HDTb7nHROWNMVHllIMbN9425 -01-10T20:24:41 Viral symptoms with fever, body aches, cough and generalized malaise since yesterday.Has been taking tylenol/advil at home without relief.Hypertensive in triage - not compliant with medications.[facility] [place] 58906-5Yabcglzdq department Triage umimYH4822-08-73L84:26:48[facility] department Triage noteTXT1.2.840.257656.1.13.104.2.7 .2.655954|[id number] for patient twfl60035-4Arssjxpkh department NoteLNNARRATIVEFormatted C-CDA narrative uebq600277058Qtvhnqwr [place] [address]vdGalvestonGalvestonTXTX77555775 27DHNIEDWBSSSSWOTYVHNFLX0472-27-32 T20:26:481.2.840.999537.1.72.3.15| 1.2.840.108790.1.13.104.2.7.2.7278 [id number] Shanna Gama RN [facility] 2023-03-12 22:56:19 qrOB/NSEGPZNYq4aY3VY jq7JItASPnQ/pt GLK3VTQPFcNB8He5qEbGRzDCIBM7pV3922 -08-21T22:56:19 Pt discharged with diagnosis of dental abscess, fever, facial pain, HTN, and anxiety. Printed and verbal instructions reviewed with and given to patient. Prescriptions given x 1. Pt verbalized understanding of teaching, medication, and recommended follow-up. Denies questions or concerns at this time. Pt ambulatory at discharge. Appears in no apparent distress. No ataxia noted. Accompanied by . 91242-8Ntchjoban department VxykIW8402-56-09Y80:56:52[facility] department NoteTXT1.2.840.092886.1.13.104.2.7 .2.529462|[id number] for patient bopr19242-8SdziDE008941773Ciqqyt R Goodrich RN[address] SvjwTrypwnuwfEiuafdfnjRUQQ00953215 65TMZHVQJYFQGKTAKBDJDTYA2078-23-85 T22:56:521.2.840.600745.1.72.3.15| 1.2.840.819660.1.13.104.2.7.2.7278 [id number] Tonia Bingham RN [facility] 2023-03-12 18:56:06 d8I218A1PLFIC2fBsE7X AAcW9ReAGmj77g DkTPQZV7/AUu9dKUR8e6r4X3EbYiq03469 -08-21T18:56:06 Pt arrived ambulatory after being sent over from urgent care d/t her HTN. Pt reports dental abscess and high blood pressure. Pt felt the abscess pop today. Pt has not been taking her BP meds since December. Pt reports having 2x heart attacks in 2019 but d/t no insurance the hospital just gave her BP meds and sent her home. 92062-1Ahduyxafy department Triage sqzfWI6369-51-17Y22:58:23[facility] department Triage noteTXT1.2.840.496860.1.13.104.2.7 .2.074903|[id number] for patient fcos00122-4Rnqlodruf department MiglSI170777399Tglzxe D Roman RNUT[address] MkqeMfbztrlfkBocfykspsYGBZ69965750 71UUMQTPPSZMYEOBWTGOYOTS8404-72-41 T18:58:231.2.840.035773.1.72.3.15| 1.2.840.568379.1.13.104.2.7.2.7278 [id number] Dacia York RN [facility]
[2023-11-03] MEDS ORDERED: MORPHINE 4 MG/ML SYR ONE (23:26)
[2023-11-03 23:49] LABS: Absolute Basophils 0.1 K/uL (0-0.5); Absolute Eosinophils 0.1 K/uL (0-0.5); Absolute Lymphocytes (CBC) 2.8 K/uL (0.7-4.9); Absolute Monocytes 0.7 K/uL (0.1-1.3); Absolute Neutrophil 4.9 K/uL (1.8-8.0); Basophils % 1.2 % (0-1.3); Eosinophils % 1.5 % (0-4.4); Hematocrit 35.2 % (36.0-45.0); Hemoglobin 11.6 g/dL (12.0-15.0); Lymphocytes % 32.2 % (15.3-44.8); MCH 25.7 pg (27.0-35.0); MCHC 32.8 g/dL (32.0-36.0); MCV 78.3 fL (80-100); MPV 8.7 fL (7.6-11.3); Monocytes % 8.2 % (3.3-12.3); Neutrophils % 56.9 % (41.7-73.7); Nucleated Red Blood Cells % 0.1 % (0-0); Red Cell Distribution Width 16.7 % (12.1-15.2)
[2023-11-03 23:51] LABS: Platelets 217 thou/uL (152-406)
[2023-11-04 00:10] LABS: Anion Gap 8.4 mEq/L (5.0-15.0); Potassium 3.4 mEq/L (3.5-5.1); Troponin High Sensitivity 5.8 pg/mL (<58.9)
--- NOTE | 2023-11-04 01:47 | ER ---
Nurse's Notes [facility] Name: Yas Corbett Age: 42 yrs Sex: Female : 1980 Arrival Date: 11/03/2023 Time: 22:42 Bed 5 Private MD: Diagnosis: Chest pain, unspecified Presentation: 11/02 22:55 Chief complaint: EMS states: Pt reports chest pain for the past hour. Was watching tv jb4 and cleaning prior to pain starting, reports it radiates to her left shoulder. Reports pain is 8/10, was given 324 of ASA. Coronavirus screen: At this time, the client does not indicate any symptoms associated with coronavirus-19. Ebola Screen: No symptoms or risks identified at this time. Initial Sepsis Screen: Does the patient meet any 2 criteria? No. Patient's initial sepsis screen is negative. Does the patient have a suspected source of infection? No. Patient's initial sepsis screen is negative. Risk Assessment: Do you want to hurt yourself or someone else? Patient reports no desire to harm self or others. Onset of symptoms was November 03, 2023. Transition of care: patient was not received from another setting of care. 22:55 Method Of Arrival: EMS: [facility] jb4 22:55 Acuity: CRUZ 2 jb4 Triage Assessment: 22:58 General: Appears in no apparent distress. uncomfortable, Behavior is calm, cooperative, jb4 appropriate for age. Pain: Complains of pain in chest Pain radiates to left arm Pain currently is 8 out of 10 on a pain scale. Neuro: Level of Consciousness is awake, alert, obeys commands, Oriented to person, place, time, situation. Cardiovascular: Patient's skin is warm and dry. Respiratory: Airway is patent Respiratory effort is even, unlabored, Respiratory pattern is regular, symmetrical. Derm: Skin is intact, Skin is pink, warm \T\ dry. Musculoskeletal: Circulation, motion, and sensation intact. Range of motion: intact in all extremities. Historical: - Allergies: 22:58 No Known Allergies; jb4 - PMHx: 22:58 Hypertension; Myocardial infarction; jb4 - PSHx: 22:58 (Myocardial infarction); jb4 - Immunization history:: Adult Immunizations up to date. - Infectious Disease History:: Denies. - Social history:: Smoking status: Patient denies any tobacco usage or history of. Screenin/14 02:10 [facility] ED Fall Risk Assessment (Adult) History of falling in the last 3 months, jb4 including since admission No falls in past 3 months (0 pts) Confusion or Disorientation No (0 pts) Intoxicated or Sedated No (0 pts) Impaired Gait No (0 pts) Mobility Assist Device Used No (0 pt) Altered Elimination No (0 pt) Score/Fall Risk Level. Abuse screen: Denies threats or abuse. Nutritional screening: No deficits noted. Tuberculosis screening: No symptoms or risk factors identified. Assessment: 11/02 23:49 Reassessment: Patient appears in no apparent distress at this time. Patient and/or jb4 family updated on plan of care and expected duration. Pain level reassessed. Patient is alert, oriented x 3, equal unlabored respirations, skin warm/dry/pink. 11/03 00:53 Reassessment: Patient appears in no apparent distress at this time. Patient and/or jb4 family updated on plan of care and expected duration. Pain level reassessed. Patient is alert, oriented x 3, equal unlabored respirations, skin warm/dry/pink. 02:10 Reassessment: Patient appears in no apparent distress at this time. Patient and/or jb4 family updated on plan of care and expected duration. Pain level reassessed. Patient is alert, oriented x 3, equal unlabored respirations, skin warm/dry/pink. Vital Signs: 11/02 22:55 BP 162 / 104; Pulse 74; Resp 16; Temp 98.8(O); Pulse Ox 100% on R/A; Weight 105.23 kg jb4 (R); Height 5 ft. 4 in. (R); Pain 8/10; 23:50 BP 163 / 98; Pulse 68; Resp 16; Pulse Ox 100% on R/A; jb4 11/03 00:54 BP 134 / 87; Pulse 68; Resp 16; Pulse Ox 99% on R/A; jb4 11/02 22:55 Body Mass Index 39.82 (105.23 kg, 162.56 cm) jb4 11/02 22:55 Pain Scale: Adult 4 ED Course: 11/02 22:54 Patient arrived in ED. jb4 22:55 Shun Moraes MD is Attending Physician. ec2 22:58 Triage completed. jb4 22:58 Arm band placed on right wrist. jb4 23:27 Aj Garza, RN is Primary Nurse. jb4 23:39 XRAY Chest (1 view) In Process Unspecified. EDMS 23:45 Basic Metabolic Panel Sent. jb4 23:45 CBC with Diff Sent. jb4 23:45 NT PRO-BNP Sent. jb4 23:45 Troponin HS Sent. jb4 23:45 Initial lab(s) drawn, by ia, sent to lab. Inserted saline lock: 18 gauge in right jb4 antecubital area, using aseptic technique. Blood collected. 23:47 IV discontinued, intact, bleeding controlled, No redness/swelling at site. Pressure jb4 dressing applied, IV infiltrated. 11/03 02:10 Patient has correct armband on for positive identification. Bed in low position. Call jb4 light in reach. Side rails up X 1. Provided Education on: discharge instructions.. 02:11 No provider procedures requiring assistance completed. jb4 Administered Medications: 11/02 23:45 Drug: morphine IVP or IV 4 mg IVP once over 4 mins Route: IVP; Infused Over: 4 mins; jb4 Site: right antecubital; 11/03 02:10 Drug: Ketorolac IM 30 mg IM once Route: IM; Site: right deltoid; jb4 02:10 Follow up: Response: Medication administered at discharge. jb4 Medication: 02:10 VIS not applicable for this client. jb4 Outcome: 01:47 Discharge ordered by . ec2 02:11 Discharged to home ambulatory, jb4 02:11 Condition: stable 02:11 Discharge instructions given to patient, Instructed on discharge instructions, follow up and referral plans. Demonstrated understanding of instructions, follow-up care, 02:11 Patient left the ED. jb4 Signatures: Dispatcher [employer] Aj Porter, MARK FLORES jb Shun Moraes MD MD ec2
--- NOTE | 2023-11-04 01:47 | EDPHYS ---
Physician Documentation [facility] Name: Yas Corbett Age: 42 yrs Sex: Female : 1980 Arrival Date: 11/03/2023 Time: 22:42 Bed 5 Private MD: ED Physician Shun Moraes HPI: 11/02 23:01 This 42 yrs old Female presents to ER via EMS with complaints of chest pain. ec2 23:01 Patient arrives today for evaluation of left-sided chest pain. Reports the pains been ec2 ongoing since earlier this afternoon. Patient reports no specific alleviating or exacerbating factors. Patient reports history of ACS, history of CHF as well as hypertension and hyperlipidemia.. Historical: - Allergies: 22:58 No Known Allergies; jb4 - PMHx: 22:58 Hypertension; Myocardial infarction; jb4 - PSHx: 22:58 (Myocardial infarction); jb4 - Immunization history:: Adult Immunizations up to date. - Infectious Disease History:: Denies. - Social history:: Smoking status: Patient denies any tobacco usage or history of. ROS: 23:01 Constitutional: as per hpi ec2 Exam: 23:01 Constitutional: GEN: NAD Head: atraumatic Eyes: EOMI Ears: External ears are ec2 normal. CV: regular rate LUNGS: no respiratory distress ABD: non-distended SKIN: no evidence of rashes MSK: no evidence of trauma, reproducible chest wall TTP, no deformities or crepitus appreciated. NEURO: moves all extremities equally Vital Signs: 22:55 BP 162 / 104; Pulse 74; Resp 16; Temp 98.8(O); Pulse Ox 100% on R/A; Weight 105.23 kg jb4 (R); Height 5 ft. 4 in. (R); Pain 8/10; 23:50 BP 163 / 98; Pulse 68; Resp 16; Pulse Ox 100% on R/A; jb4 11/03 00:54 BP 134 / 87; Pulse 68; Resp 16; Pulse Ox 99% on R/A; jb4 11/02 22:55 Body Mass Index 39.82 (105.23 kg, 162.56 cm) jb4 11/02 22:55 Pain Scale: Adult jb4 MDM: 11/02 23:00 Patient medically screened. ec2 23:01 Data reviewed: vital signs. ED course: Patient arrives today for chest pain. ec2 Examination remarkable for reproducible chest wall TTP. Will obtain lab work, EKG, chest ray. Evaluate for ACS, arrhythmia, anemia, electrolyte disturbances. Will give the patient morphine for pain control.. 23:12 ED course: EKG independently reviewed and interpreted by me, shows normal sinus rhythm, ec2 rate of 66, no acute ST segment elevations, nonconcerning intervals.. 11/03 00:12 ED course: Metabolic profile reassuring, CBC reassuring, troponin within normal ranges, ec2 BMP within normal ranges. Will obtain repeat EKG and troponin at 2-hour reji. . 01:09 ED course: Repeat EKG independently reviewed and interpreted by me, shows normal sinus ec2 rhythm, rate of 66, no acute ST segment elevations, intervals are nonconcerning. When compared to initial EKG, appears grossly unchanged.. 01:11 ED course: Chest x-ray independently reviewed and interpreted by me, shows no acute ec2 intrathoracic process.. 01:44 ED course: Repeat troponin is static. Given reproducibility of the patient's symptoms, ec2 suspect costochondritis. Will discharge home. Return precautions given.. 11/02 23:00 Order name: Basic Metabolic Panel; Complete Time: 00:12 ec2 11/02 23:00 Order name: CBC with Diff; Complete Time: 00:12 ec2 11/02 23:00 Order name: NT PRO-BNP; Complete Time: 00:12 ec2 11/02 23:00 Order name: Troponin HS; Complete Time: 00:12 ec2 11/03 00:16 Order name: Troponin High Sensitivity; Complete Time: 01:44 rv 11/02 23:00 Order name: XRAY Chest (1 view) ec2 11/02 23:00 Order name: Cardiac monitoring; Complete Time: :28 ec2 11/02 23:00 Order name: EKG - Nurse/Tech; Complete Time: :28 ec2 11/02 23:00 Order name: IV Saline Lock; Complete Time: :28 ec2 11/02 23:00 Order name: Labs collected and sent; Complete Time: 23:28 ec2 11/02 23:00 Order name: O2 Per Protocol; Complete Time: :28 ec2 11/02 23:00 Order name: O2 Sat Monitoring; Complete Time: 23:28 ec2 11/03 00:13 Order name: Misc. Order: repeat EKG trop at 0100; Complete Time: 01:10 ec2 11/03 00:59 Order name: EKG - Nurse/Tech; Complete Time: 01:10 ec2 Administered Medications: 11/02 23:45 Drug: morphine IVP or IV 4 mg IVP once over 4 mins Route: IVP; Infused Over: 4 mins; jb4 Site: right antecubital; 11/03 02:10 Drug: Ketorolac IM 30 mg IM once Route: IM; Site: right deltoid; jb4 02:10 Follow up: Response: Medication administered at discharge. jb4 Disposition Summary: 11/04/23 01:47 Discharge Ordered Notes: Location: Home ec2 Condition: Stable ec2 Diagnosis - Chest pain, unspecified ec2 Followup: ec2 - With: Private Physician - When: - Reason: Re-evaluation by your physician Discharge Instructions: - Discharge Summary Sheet ec2 - Nonspecific Chest Pain, Adult ec2 Forms: - Medication Reconciliation Form ec2 - Thank You Letter ec2 - Antibiotic Education ec2 - Prescription Opioid Use ec2 - Patient Portal Instructions ec2 - Leadership Thank You Letter ec2 Signatures: Dispatcher [employer] Aj Porter RN RN jb4 Shun Moraes MD MD ec2 Corrections: (The following items were deleted from the chart) 00:16 00:16 Troponin High Sensitivity+C.LAB.BRZ ordered. DEAN MORAN
[2023-11-04] MEDS ORDERED: KETOROLAC 30 MG/ML INJ ONE (02:04)
[2023-11-04 10:29] VITALS: BP 134/87; TEMP 98.8; O2SAT 99
--- NOTE | 2023-11-06 22:13 | RAD REPORT ---
EXAM DESCRIPTION: RAD - Chest Single View - 11/03/2023 11:37 pm CLINICAL HISTORY: 42 years Female CHEST PAIN COMPARISON: None TECHNIQUE: Review of the chest was obtained. FINDINGS: Cardiac size is within normal limits. Central vessels are not increased.No effusions bilat erally. No abnormal airspace opacities bilaterally. No pneumothorax. Marked overlying soft tissue. IMPRESSION: No active disease. Electronically signed by Joleen Horton MD 11/04/2023 01:01 AM CDT Due to temporary technical issues with the PACS/Fluency reporting system, reports are being signed by the in house radiologists without review as a courtesy to insure prompt reporting. The interpreting radiologist is fully responsible for the content of the report.
== END 2023-11-04 02:11 | disposition home or self-care (01) ==
LOC: ER 22:42
DX: R07.9 Chest pain, unspecified (principal); I10 Essential (primary) hypertension; I25.2 Old myocardial infarction
CPT/HCPCS: 36415; 71045; 80048; 83880; 84484; 85025; 93005; 96372; 96374; 99284

== ENCOUNTER 2024-05-20 18:11 | Emergency (ER) | payer OTHER ==
--- OUTSIDE RECORDS SUMMARY | 2024-05-20 18:16 | XMS REPORT | Continuity of Care Document ---
Author Name Unknown Address [address] [facility] [place]. [address] [place] [address] [facility] [address] [facility] [address] [place] [address] Care Team Providers Care Associate Store Director Name Role Phone Pcp, Patient Does Not Have A Primary Care Physic mic TRUPTI FRAGA Attending Clinician Unavailab TRUPTI Pitts Attending Clinician Unavailab Trupti Pitts DO Attending Clinician [phone] MAVIS HERNANDEZ Attending Clinician Unavailable WES ABURTO Attending Clinician UnaWES Santana Attending Clinician Unav Wes Vidales MD Attending Clinician + Rachel Steele MD Attending Clinician [phone] Doctor Unassigned, [place] Attending Clinician U JOMAR Edwards Attending Clinician Unavailable Jomar Moyer MD Attending Clinician [phone] REBECA RUBIN Attending Clinician Unavailable Rebeca Guerra Attending Clinician [phone] Priya Arauz Attending Clinician +[phone] Unknown, Attending Attending Clinician Unavailab PRIYA Moreno Attending Clinician Unavailable QI BEE Attending Clinician Unavailab Qi Pendleton MD Attending Clinician + [phone] KYLEE SERRANO Attending Clinician Unavailable Nurse, [facility] Attending Clinician Un available Kylee Serrano MD Attending Clinician [phone] RACHEL STEELE Attending Clinician Unavailable KERRI CM Attending Clinician Unavailable Jose CRIME LAB ANALYSTKerri Attending Clinician [phone] Pob, [facility] Main Attending Clinician Unavailabl e 2, [facility] Attending Clinician Unavailable Michelle LUNSFORD Attending Clinician Unavailable Michelle Garza Attending Clinician [phone] Alondra More MD Attending Clinician +[phone] ÁNGELA LABOY Attending Clinician Unavailab ÁNGELA Zazueta Attending Clinician Unavailab Josue Mclean Attending Clinician [phone] JOSUE GATES Attending Clinician Unavailable ALONDRA MORE Attending Clinician Unava ilable MARIN PENA Attending Clinician UnavailMARNI Mon Attending Clinician UnavailMarin Mon MD Attending Clinician + [phone] [facility] Attending Clinician Unavaila Kaylyn Bull Attending Clinician [phone] KAYLYN FITZGERALD Attending Clinician Unavailable Natalio Rinaldi MD Attending Clinician [phone] Jayleen García DO Attending Clinician [phone] JAYLEEN GARCÍA Attending Clinician Unavailable SEBASTIEN KOCH Attending Clinician Unavailable REBECA RUBIN Admitting Clinician Unavailable KERRI CM Admitting Clinician Unavailable RACHEL STEELE Admitting Clinician Unavailable Michelle LUNSFORD Admitting Clinician Unavailable ALONDRA MORE Admitting Clinician Unava ilable ÁNGELA LABOY Admitting Clinician Unavailab Jayleen Nguyen DO Admitting Clinician [phone] JAYLEEN GARCÍA Admitting Clinician Unavailable SEBASTIEN KOCH Admitting Clinician Unavailable Payers Payer Name Policy Type Policy Number Effective Date Expirati on Date Source [facility] [id number] 2022 00:00:00 Problems Condition Name Condition Details Condition Category Status Onset Date Resolution Date Last Treatment Date Treating Clinician Comments Source Elevated brain natriureti c peptide (BNP) level Elevated brain natriureti c peptide (BNP) level Disease Active 10-12 00:00: 00 [facility] Elevated brain natriureti c peptide (BNP) level Elevated brain natriureti c peptide (BNP) level Disease Active 10-12 00:00: 00 [facility] Hypertensi on, unspecifie d type Hypertensi on, unspecifie d type Disease Active 04-20 00:00: 00 [facility] Gastroesop hageal reflux disease, unspecifie d whether esophagiti s present Gastroesop hageal reflux disease, unspecifie d whether esophagiti s present Disease Active 04-20 00:00: 00 [facility] Esophageal dysphagia Esophageal dysphagia Disease Active 04-20 00:00: 00 [facility] Missed period Missed period Disease Active 04-20 00:00: 00 [facility] Anemia, unspecifie d type Anemia, unspecifie d type Disease Active 04-20 00:00: 00 [facility] Iron deficiency Iron deficiency Disease Active 04-20 00:00: 00 [facility] Pain in other joint Pain in other joint Disease Active 04-20 00:00: 00 [facility] History of multiple miscarriag es History of multiple miscarriag es Disease Active 04-20 00:00: 00 [facility] Myalgia Myalgia Disease Active 04-20 00:00: 00 [facility] Pyelonephr itis Pyelonephr itis Disease Active 01-20 00:00: 00 [facility] Obesity (BMI 30-39.9) Obesity (BMI 30-39.9) Disease Active 01-20 00:00: 00 [facility] Allergies, Adverse Reactions, Alerts Allergy Name Allergy Type Status Severity Reaction(s) Onset Date Inactive Date Treating Clinician Comments Source FUROSEMI DE DRUG INGREDI Active Other-Cmnt 8 00:00: 00 [facility] Furosemi de Propensi ty to adverse reaction s Active Other - See comments 03-11 00:00: 00 Cramping whole body [facility] TRIAMTER MICHELLE-HYDR OCHLOROT HIAZID DRUG Active Other-Cmnt 11-22 00:00: 00 [facility] Triter michelle-Hydr ochlorot hiazid Propensi ty to adverse reaction s Active Other - See comments 11-22 00:00: 00 Cramping and fatigue [facility] AMLODIPI NE DRUG INGREDI Active Other-Cmnt 09-28 00:00: 00 [facility] Amlodipi ne Propensi ty to adverse reaction s Active Other - See comments 09-28 00:00: 00 Multiple side effects [facility] NO KNOWN ALLERGIE S Drug Class Active [facility] Social History Social Habit Start Date Stop Date Quantity Comments Source Gender identity [facility] Sexual orientation U [facility] History SDOH Alcohol Frequency [facility] History SDOH Alcohol Std Drinks [facility] History SDOH Alcohol Binge [facility] Alcoholic beverage intake 2024-04-15 00:00:00 2024-04-15 00:00:00 [facility] Alcohol intake 2023-05-08 00:00:00 2023-05-08 00:00:00 [facility] Exposure to SARS-CoV-2 (event) 2022-11-26 00:00:00 2022-12-06 14:58:00 Not sure [facility] History of Social function 2022-03-28 00:00:00 2022-03-28 00:00:00 [facility] Cigarettes smoked current (pack per day) - Reported 2022-03-28 00:00:00 2022-03-28 00:00:00 [facility] Cigarette pack-years 2022-03-28 00:00:00 2022-03-28 00:00:00 [facility] Alcohol Comment 2022-03-28 00:00:00 2022-03-28 00:00:00 rarely drinks [facility] Tobacco use and exposure 2022-03-28 00:00:00 2022-03-28 00:00:00 Smokeless tobacco non-user [facility] History of tobacco use 2002-01-20 00:00:00 2022-01-20 00:00:00 Cigarette Smoker [facility] Sex assigned at 1980 00:00:00 1980 00:00:00 [facility] Smoking Status Start Date Stop Date Source Ex-smoker 2022-03-28 00:00:00 2022-03-28 [facility] Medic[facility] Ordered Medication Name Filled Medication Name Start Date Stop Date Current Medication? Ordering Clinician Indication Dosage Frequency Signature (SIG) Comments Components Source acetaminoph en (TYLENOL) tablet 1,000 mg 03-12 03:30: 00 03-12 03:02 :00 No 1000mg 1,000 mg, Oral, ONCE, 1 dose, On Sun03/11/24 at 2230, Routine [facility] diphenhydrA MINE (BENADRYL) injection 25 mg 03-12 02:45: 00 03-12 02:59 :00 No 25mg 25 mg, Slow IV Push, ONCE, 1 dose, On Sun03/11/24 at 2145, STAT [facility] metoclopram beatrice HCl (REGLAN) injection 10 mg 03-12 02:45: 00 03-12 02:59 :00 No 10mg 10 mg, Slow IV Push, ONCE, 1 dose, On Sun03/11/24 at 2145, MICHAEL [facility] NaCl 0.9% (NS) bolus infusion 500 mL 03-12 02:45: 00 03-12 03:44 :00 No 500mL at 999 mL/hr, 500 mL, IV Infusion, ONCE, 1 dose, On Sun03/11/24 at 2145, STAT [facility] ondansetron (ZOFRAN-ODT ) disintegrat ing tablet 4 mg 08-05 03:45: 00 08-05 03:11 :00 No 4mg 4 mg, Oral, ONCE, 1 dose, On 08/04/23 at 2145, [facility] HYDROcodone -acetaminop hen (NORCO) 10-325 mg tablet 1 tablet 08-05 03:45: 00 08-05 03:12 :00 No 1{tbl} 1 tablet, Oral, ONCE, 1 dose, On 08/04/23 at 2145, [facility] dexAMETHaso ne (DECADRON) tablet 6 mg 08-05 03:30: 00 08-05 03:11 :00 No 6mg 6 mg, Oral, ONCE NOW, 1 dose, On 08/04/23 at 2130, [facility] ibuprofen (IBU) tablet 600 mg 08-05 01:30: 00 08-05 01:33 :00 No 600mg 600 mg, Oral, ONCE, 1 dose, On 08/04/23 at 1930, [facility] cefdinir 300 mg capsule 08-04 00:00: 00 08-15 05:59 :00 No [id number] 300mg Take 1 capsule by mouth in the morning and 1 capsule in the evening. Do all this for 10 days. [facility] acetaminoph en-codeine 300-30 mg tablet 08-04 00:00: 00 08-12 05:59 :00 No [id number] 1{tbl} Take 1 tablet by mouth every 4 (four) hours as needed for Pain (scale 7-10) for up to 7 days. Indication s: acute pain [facility] predniSONE 20 mg tablet 08-04 00:00: 00 08-10 05:59 :00 No [id number] 20mg Take 1 tablet by mouth in the morning and 1 tablet in the evening. Do all this for 5 days. [facility] NaCl 0.9% (NS) bolus infusion 1,000 mL 08-02 03:30: 00 08-02 05:27 :00 No 1000mL at 999 mL/hr, 1,000 mL, IV Infusion, ONCE, 1 dose, On Sun08/01/23 at 2130, MICHAEL [facility] ibuprofen (IBU) tablet 600 mg 08-02 03:00: 00 08-02 03:00 :00 No 600mg 600 mg, Oral, ONCE, 1 dose, On Sun08/01/23 at 2100, MICHAEL [facility] cloNIDine (CATAPRES) tablet 0.1 mg 08-02 02:45: 00 08-02 03:25 :00 No .1mg 0.1 mg, Oral, ONCE, 1 dose, On Sun08/01/23 at 2045, STAT [facility] carvediloL (COREG) tablet 12.5 mg 08-02 02:45: 00 08-02 03:25 :00 No 12.5mg 12.5 mg, Oral, ONCE NOW, 1 dose, On Sun08/01/23 at 2045, Routine [facility] losartan (COZAAR) tablet 100 mg 08-02 02:45: 00 08-02 03:25 :00 No 100mg 100 mg, Oral, ONCE NOW, 1 dose, On Sun08/01/23 at 2045, Routine [facility] ibuprofen 600 mg tablet 08-01 00:00: 00 Yes [id number] 600mg Take 1 tablet by mouth every 6 (six) hours as needed for Temp > 38.5 C or Pain (scale 4-6). [facility] amoxicillin -clavulanat e (AUGMENTIN) 875-125 mg per tablet 1 tablet 03-13 02:40: 00 03-13 03:03 :00 No 1{tbl} 1 tablet, Oral, ONCE, 1 dose, On Sun03/12/23 at 2145, MICHAEL
Re ason for Anti-Infec tive: Documented Infection< br>Documen yoel Infection Site: Other
O ther site: mouth
D uration of Therapy: 10 days [facility] ketorolac (TORADOL) injection 30 mg 03-13 01:45: 00 03-13 01:31 :00 No 30mg 30 mg, Slow IV Push, ONCE, 1 dose, On Sun03/12/23 at 2045, [facility] losartan 100 mg tablet 03-12 00:00: 00 Yes [id number] 100mg Take 1 tablet by mouth in the morning. [facility] amoxicillin -clavulanat e 875-125 mg per tablet 03-12 00:00: 00 03-23 04:59 :00 No [id number] 1{tbl} Take 1 tablet by mouth every 12 (twelve) hours for 10 days. [facility] hydralAZINE (APRESOLINE ) injection 10 mg 12-21 16:30: 00 12-21 16:48 :00 No 10mg 10 mg, Slow IV Push, ONCE, 1 dose, On [facility] 12/21/22 at 1130, [facility] hydralAZINE (APRESOLINE ) injection 10 mg 12-21 15:00: 00 12-21 15:31 :00 No 10mg 10 mg, Slow IV Push, ONCE, 1 dose, On [facility] 12/21/22 at 1000, [facility] acetaminoph en (TYLENOL) tablet 650 mg 12-21 15:00: 00 12-21 15:30 :00 No 650mg 650 mg, Oral, ONCE, 1 dose, On [facility] 12/21/22 at 1000, [facility] furosemide 40 mg tablet 12-07 00:00: 00 Yes [id number] 40mg Take 1 tablet by mouth in the morning. [facility] spironolact one 25 mg tablet 11-22 00:00: 00 Yes [id number] 25mg Take 1 tablet by mouth in the morning. [facility] cloNIDine (CATAPRES) tablet 0.1 mg 09-28 22:15: 00 09-28 21:14 :00 No [id number] .1mg [facility] cloNIDine (CATAPRES) tablet 0.1 mg 09-28 21:30: 00 09-28 20:32 :00 No [id number] .1mg [facility] carvediloL 12.5 mg tablet 09-28 00:00: 00 Yes [id number] 12.5mg Take 1 tablet by mouth in the morning and 1 tablet in the evening. Take with meals. [facility] losartan 100 mg tablet 09-28 00:00: 00 03-12 00:00 :00 No [id number] 100mg Take 1 tablet by mouth in the morning. [facility] triamterene -hydrochlor othiazide 37.5-25 mg per capsule 09-28 00:00: 00 11-22 00:00 :00 No [id number] 1{capsu le} Take 1 capsule by mouth every morning. [facility] labetaloL (NORMODYNE) injection 20 mg 08-08 08:45: 00 08-08 07:52 :00 No 20mg 20 mg, Slow IV Push, ONCE, 1 dose, On Sun08/08/22 at 0245, Routine [facility] NIFEdipine ER tablet 30 mg 08-08 06:45: 00 08-08 06:04 :00 No 30mg 30 mg, Oral, ONCE, 1 dose, On Sun08/08/22 at 0045, Routine [facility] iopamidol (ISOVUE 370-500 mL) injection 75 mL 08-08 05:45: 00 08-08 05:45 :00 No [id number] 75mL 75 mL, Intravenou s, ONCE, 1 dose, On Sun08/07/22 at 2345, Routine [facility] ipratropium -albuteroL (DUONEB) 0.5 mg-3 mg(2.5 mg base)/3 mL nebulizer solution 3 mL 08-08 05:15: 00 08-08 04:14 :00 No 3mL 3 mL, Inhalation , ONCE, 1 dose, On Sun08/07/22 at 2315, Routine [facility] carvediloL (COREG) tablet 3.125 mg 08-08 05:00: 00 08-08 04:14 :00 No 3.125mg 3.125 mg, Oral, ONCE, 1 dose, On Sun08/07/22 at 2300, Routine [facility] benzonatate (TESSALON PERLES) capsule 100 mg 08-08 05:00: 00 08-08 04:14 :00 No 100mg 100 mg, Oral, ONCE, 1 dose, On Sun08/07/22 at 2300, Routine [facility] ondansetron 4 mg disintegrat ing tablet 08-08 00:00: 00 12-21 00:00 :00 No [id number] 4mg Take 1 tablet by mouth every 8 (eight) hours as needed for Nausea and Vomiting (N/V). [facility] benzonatate 200 mg capsule 08-08 00:00: 00 12-21 00:00 :00 No [id number] 200mg Take 1 capsule by mouth 3 (three) times daily as needed for Cough for up to 20 doses. [facility] ibuprofen 600 mg tablet 08-08 00:00: 00 12-21 00:00 :00 No [id number] 600mg Take 1 tablet by mouth every 6 (six) hours as needed for Pain (scale 4-6). [facility] molnupiravi r 200 mg capsule 08-08 00:00: 00 08-14 05:59 :00 No [id number] 800mg Take 4 capsules by mouth every 12 (twelve) hours for 5 days. [facility] NIFEDIPINE ER 30 mg tablet 2021-07 00:00: 12-21 00:00 :00 No [id number] TAKE ONE TAB IN THE MORNING. IF BP CONSISTENT LY >150/90 TAKE ONE TWICE A DAY. [facility] acetaminoph en (TYLENOL) tablet 975 mg 2021-07 20:56: 00 06-18 21:05 :00 No [id number] [facility] ben[facility] (TESSALON PERLES[facility] 100 mg capsule 2021-07 00:00: 00 06-29 05:59 :00 No [id number] 100mg Take 1 capsule by mouth every 8 (eight) hours as needed for Cough for up to 10 days. [facility] codeine-gua ifenesin 10-100 mg/5 mL oral solution 2021-07 00:00: 00 06-26 05:59 :00 No 10mL Take 10 mL by mouth every 6 (six) hours as needed for Cough for up to 7 days. Indication s: cough [facility] oseltamivir (TAMIFLU) 75 mg capsule 2021-07 00:00: 00 06-24 05:59 :00 No [id number] 75mg Take 1 capsule by mouth in the morning and 1 capsule in the evening. Do all this for 5 days. [facility] DULOXETINE 30 mg capsule 2021-07 00:00: 00 12-21 00:00 :00 No [id number] TAKE 1 CAPSULE BY MOUTH EVERY MORNING [facility] busPIRone 10 mg tablet 2021-07 00:00: 00 12-21 00:00 :00 No [id number] 1 TAB AT NIGHT. MAY INCREASE EVERY FEW DAYS BY 1 EXTRA TAB DAILY UNTIL GOAL OF 2 TABS TWICE DAILY [facility] terbinafine HCL 250 mg tablet 2021-07 00:00: 00 12-21 00:00 :00 No [id number] 250mg Take 1 tablet by mouth in the morning. [facility] DULoxetine 30 mg capsule 2021-07 00:00: 06-02 00:00 :00 No [id number] 30mg Take 1 capsule by mouth in the morning and 1 capsule in the evening. [facility] pantoprazol e 40 mg EC tablet 2021-07 00:00: 00 12-21 00:00 :00 No [id number] 40mg Take 1 tablet by mouth in the morning. [facility] busPIRone 10 mg tablet 2021-07 00:00: 06-02 00:00 :00 No [id number] Take 1 at night, after a few days then increase to 1 tablet twice a day, may increase every few days up to 2 tablets twice a day. For stress [facility] DULoxetine 30 mg capsule 2021-07 00:00: 00 05-19 00:00 :00 No [id number] 30mg Take 1 capsule by mouth in the morning. [facility] carvediloL 12.5 mg tablet 04-18 00:00: 00 09-28 00:00 :00 No [id number] 12.5mg Take 1 tablet by mouth in the morning and 1 tablet in the evening. Take with meals. [facility] cyclobenzap rine 10 mg tablet 04-03 00:00: 00 12-21 00:00 :00 No [id number] 10mg Take 1 tablet by mouth 2 (two) times daily as needed (back pain). [facility] labetaloL 100 mg tablet 04-03 00:00: 00 04-18 00:00 :00 No [id number] 100mg Take 1 tablet by mouth every 12 (twelve) hours. [facility] cloNIDine (CATAPRES) tablet 0.1 mg 03-28 20:15: 00 03-28 20:10 :00 No [id number] .1mg [facility] loratadine 10 mg capsule 03-28 16:07: 04 03-28 00:00 :00 No [id number] 10mg Take 10 mg by mouth daily. Indication s: inflammati on of the nose due to an allergy [facility] NIFEdipine ER 30 mg tablet 03-28 00:00: 00 07-20 00:00 :00 No [id number] Take one tab in the morning. If BP consistent ly >150/90 take one twice a day. [facility] pantoprazol e 40 mg EC tablet 03-28 00:00: 00 04-25 00:00 :00 No [id number] 40mg Take 1 tablet by mouth in the morning. [facility] benzonatate 100 mg capsule 07-31 00:00: 00 03-28 00:00 :00 No [id number] 100mg Take 1 capsule by mouth 3 (three) times daily as needed for Cough. [facility] Immunizations Ordered Immunization Name Filled Immunization Name Date Status Comments Source Remdesivir 2022-01-22 00:00:00 Completed [facility] Remdesivir 2022-01-22 00:00:00 Completed [facility] Remdesivir 2022-01-22 00:00:00 Completed [facility] Remdesivir 2022-01-22 00:00:00 Completed [facility] Remdesivir 2022-01-22 00:00:00 Completed [facility] Remdesivir 2022-01-22 00:00:00 Completed [facility] Remdesivir 2022-01-22 00:00:00 Completed [facility] Remdesivir 2022-01-22 00:00:00 Completed [facility] Remdesivir 2022-01-22 00:00:00 Completed [facility] Remdesivir 2022-01-22 00:00:00 Completed [facility] Remdesivir 2022-01-22 00:00:00 Completed [facility] Remdesivir 2022-01-22 00:00:00 Completed [facility] Remdesivir 2022-01-22 00:00:00 Completed [facility] Remdesivir 2022-01-22 00:00:00 Completed [facility] Remdesivir 2022-01-22 00:00:00 Completed [facility] Remdesivir 2022-01-22 00:00:00 Completed [facility] Remdesivir 2022-01-22 00:00:00 Completed [facility] Remdesivir 2022-01-22 00:00:00 Completed [facility] Remdesivir 2022-01-22 00:00:00 Completed [facility] Remdesivir 2022-01-22 00:00:00 Completed [facility] Remdesivir 2022-01-22 00:00:00 Completed [facility] Remdesivir 2022-01-22 00:00:00 Completed [facility] Remdesivir 2022-01-22 00:00:00 Completed [facility] Remdesivir 2022-01-22 00:00:00 Completed [facility] Remdesivir 2022-01-22 00:00:00 Completed [facility] Remdesivir 2022-01-22 00:00:00 Completed [facility] Remdesivir 2022-01-22 00:00:00 Completed [facility] Remdesivir 2022-01-22 00:00:00 Completed [facility] Remdesivir 2022-01-22 00:00:00 Completed [facility] Remdesivir 2022-01-22 00:00:00 Completed [facility] Remdesivir 2022-01-22 00:00:00 Completed [facility] Remdesivir 2022-01-22 00:00:00 Completed [facility] Remdesivir 2022-01-22 00:00:00 Completed [facility] Remdesivir 2022-01-21 00:00:00 Completed [facility] Remdesivir 2022-01-21 00:00:00 Completed [facility] Remdesivir 2022-01-21 00:00:00 Completed [facility] Remdesivir 2022-01-21 00:00:00 Completed [facility] Remdesivir 2022-01-21 00:00:00 Completed [facility] Remdesivir 2022-01-21 00:00:00 Completed [facility] Remdesivir 2022-01-21 00:00:00 Completed [facility] Remdesivir 2022-01-21 00:00:00 Completed [facility] Remdesivir 2022-01-21 00:00:00 Completed [facility] Remdesivir 2022-01-21 00:00:00 Completed [facility] Remdesivir 2022-01-21 00:00:00 Completed [facility] Remdesivir 2022-01-21 00:00:00 Completed [facility] Remdesivir 2022-01-21 00:00:00 Completed [facility] Remdesivir 2022-01-21 00:00:00 Completed [facility] Remdesivir 2022-01-21 00:00:00 Completed [facility] Remdesivir 2022-01-21 00:00:00 Completed [facility] Remdesivir 2022-01-21 00:00:00 Completed [facility] Remdesivir 2022-01-21 00:00:00 Completed [facility] Remdesivir 2022-01-21 00:00:00 Completed [facility] Remdesivir 2022-01-21 00:00:00 Completed [facility] Remdesivir 2022-01-21 00:00:00 Completed [facility] Remdesivir 2022-01-21 00:00:00 Completed [facility] Remdesivir 2022-01-21 00:00:00 Completed [facility] Remdesivir 2022-01-21 00:00:00 Completed [facility] Remdesivir 2022-01-21 00:00:00 Completed [facility] Remdesivir 2022-01-21 00:00:00 Completed [facility] Remdesivir 2022-01-21 00:00:00 Completed [facility] Remdesivir 2022-01-21 00:00:00 Completed [facility] Remdesivir 2022-01-21 00:00:00 Completed [facility] Remdesivir 2022-01-21 00:00:00 Completed [facility] Remdesivir 2022-01-21 00:00:00 Completed [facility] Remdesivir 2022-01-21 00:00:00 Completed [facility] Remdesivir 2022-01-21 00:00:00 Completed [facility] Remdesivir 2022-01-20 00:00:00 Completed [facility] Remdesivir 2022-01-20 00:00:00 Completed [facility] Remdesivir 2022-01-20 00:00:00 Completed [facility] Remdesivir 2022-01-20 00:00:00 Completed [facility] Remdesivir 2022-01-20 00:00:00 Completed [facility] Remdesivir 2022-01-20 00:00:00 Completed [facility] Remdesivir 2022-01-20 00:00:00 Completed [facility] Remdesivir 2022-01-20 00:00:00 Completed [facility] Remdesivir 2022-01-20 00:00:00 Completed [facility] Remdesivir 2022-01-20 00:00:00 Completed [facility] Remdesivir 2022-01-20 00:00:00 Completed [facility] Remdesivir 2022-01-20 00:00:00 Completed [facility] Remdesivir 2022-01-20 00:00:00 Completed [facility] Remdesivir 2022-01-20 00:00:00 Completed [facility] Remdesivir 2022-01-20 00:00:00 Completed [facility] Remdesivir 2022-01-20 00:00:00 Completed [facility] Remdesivir 2022-01-20 00:00:00 Completed [facility] Remdesivir 2022-01-20 00:00:00 Completed [facility] Remdesivir 2022-01-20 00:00:00 Completed [facility] Remdesivir 2022-01-20 00:00:00 Completed [facility] Remdesivir 2022-01-20 00:00:00 Completed [facility] Remdesivir 2022-01-20 00:00:00 Completed [facility] Remdesivir 2022-01-20 00:00:00 Completed [facility] Remdesivir 2022-01-20 00:00:00 Completed [facility] Remdesivir 2022-01-20 00:00:00 Completed [place] [facility] 2022-01-20 00:00:00 Completed [facility] Remdesivir 2022-01-20 00:00:00 Completed [facility] Remdesivir 2022-01-20 00:00:00 Completed [facility] Remdesivir 2022-01-20 00:00:00 Completed [facility] Remdesivir 2022-01-20 00:00:00 Completed [facility] Remdesivir 2022-01-20 00:00:00 Completed [facility] Remdesivir 2022-01-20 00:00:00 Completed [facility] Remdesivir 2022-01-20 00:00:00 Completed [facility] Remdesivir Unknown Completed [facility] Remdes[facility] Unknown Completed [facility] Remdesivir Unknown Completed [facility] Remdesivir Unknown Completed [facility] Completed [facility] Completed [facility] Unknown Completed [facility] Unknown Completed [facility] Unknown Completed [facility] Unknown Completed [facility] Unknown Completed [facility] Completed [facility] Unknown Completed [facility] Unknown Completed [facility] Completed [facility] Completed [facility] Completed [facility] Completed [facility] Completed [facility] Completed [facility] Unknown Completed [facility] Unknown Completed [facility] Unknown Completed [facility] Rem[facility] Unknown Completed [facility] Remdes[facility] Unknown [facility]pleted [facility] Remdes[facility] Unknown Completed [facility] Remdes[facility] Unknown [facility]pleted [facility] Remdesivir Unknown Completed [facility] Remdes[facility] Unknown [facility]pleted [facility] Remdesivir Unknown Completed [facility] Remdesivir Unknown Completed [facility] Remdesivir Unknown Completed [facility] Vital Signs Vital Name Observation Time Observation Value Comments S shaquille Systolic blood pressure 2024-04-15 23:49:00 198 mm[Hg] [facility] Diastolic blood pressure 2024-04-15 23:49:00 131 mm[Hg] [facility] Heart rate 2024-04-15 23:49:00 90 /min [facility] Body temperature 2024-04-15 23:49:00 37.22 Tracy [facility] Respiratory rate 2024-04-15 23:49:00 20 /min [facility] Body height 2024-04-15 23:49:00 162.6 cm [facility] Body weight 2024-04-15 23:49:00 108.41 kg [facility] BMI 2024-04-15 23:49:00 41.02 kg/m2 [facility] Oxygen saturation in Arterial blood by Pulse oximetry 2024-04-15 23:49:00 100 /min [facility] Heart rate 2024-03-12 04:12:00 74 /min [facility] Body temperature 2024-03-12 04:12:00 36.67 Tracy [facility] Respiratory rate 2024-03-12 04:12:00 17 /min [facility] Oxygen saturation in Arterial blood by Pulse oximetry 2024-03-12 04:12:00 96 /min [facility] Systolic blood pressure 2024-03-12 04:00:00 125 mm[Hg] [facility] Diastolic blood pressure 2024-03-12 04:00:00 69 mm[Hg] [facility] Body height 2024-03-12 01:43:00 162.6 cm [facility] Body weight 2024-03-12 01:43:00 105.235 kg [facility] BMI 2024-03-12 01:43:00 39.82 kg/m2 [facility] Systolic blood pressure 2023-08-05 01:18:00 167 mm[Hg] [facility] Diastolic blood pressure 2023-08-05 01:18:00 124 mm[Hg] [facility] Heart rate 2023-08-05 01:18:00 95 [facility] Body temperature 2023-08-05 01:18:00 37.61 Tracy [facility] Respiratory rate 2023-08-05 01:18:00 20 /min [facility] Body height 2023-08-05 01:18:00 162.6 cm [facility] Body weight 2023-08-05 01:18:00 104.327 kg [facility] BMI 2023-08-05 01:18:00 39.48 kg/m2 [facility] Oxygen saturation in Arterial blood by Pulse oximetry 2023-08-05 01:18:00 97 /min [facility] Systolic blood pressure 2023-08-02 05:00:00 144 mm[Hg] [facility] Diastolic blood pressure 2023-08-02 05:00:00 91 mm[Hg] [facility] Heart rate 2023-08-02 05:00:00 82 /min [facility] Body temperature 2023-08-02 05:00:00 37.56 Tracy [facility] Respiratory rate 2023-08-02 05:00:00 19 /min [facility] Oxygen saturation in Arterial blood by Pulse oximetry 2023-08-02 05:00:00 96 /min [facility] Body height 2023-08-02 02:26:00 162.6 cm [facility] Body weight 2023-08-02 02:26:00 104.327 kg [facility] BMI 2023-08-02 02:26:00 39.48 kg/m2 [facility] Systolic blood pressure 2023-05-08 19:15:00 157 mm[Hg] [facility] Diastolic blood pressure 2023-05-08 19:15:00 111 mm[Hg] [facility] Heart rate 2023-05-08 19:09:00 88 /min [facility] Body temperature 2023-05-08 19:09:00 37 Tracy [facility] Respiratory rate 2023-05-08 19:09:00 18 /min [facility] Body height 2023-05-08 19:09:00 162.6 cm [facility] Body weight 2023-05-08 19:09:00 105.28 kg [facility] BMI 2023-05-08 19:09:00 39.84 kg/m2 [facility] Oxygen saturation in Arterial blood by Pulse oximetry 2023-05-08 19:09:00 97 /min [facility] Systolic blood pressure 2023-03-13 02:51:00 206 mm[Hg] [facility] Diastolic blood pressure 2023-03-13 02:51:00 132 mm[Hg] [facility] Heart rate 2023-03-13 02:51:00 72 /min [facility] Respiratory rate 2023-03-13 02:51:00 18 /min [facility] Body temperature 2023-03-12 23:59:00 37.78 Tracy [facility] Body height 2023-03-12 23:59:00 162.6 cm [facility] Body weight 2023-03-12 23:59:00 104.69 kg [facility] BMI 2023-03-12 23:59:00 39.62 kg/m2 [facility] Oxygen saturation in Arterial blood by Pulse oximetry 2023-03-12 23:59:00 100 /min [facility] Systolic blood pressure 2023-03-12 23:42:00 199 mm[Hg] [facility] Diastolic blood pressure 2023-03-12 23:42:00 132 mm[Hg] [facility] Systolic blood pressure 2023-03-12 23:42:00 199 mm[Hg] [facility] Diastolic blood pressure 2023-03-12 23:42:00 132 mm[Hg] [facility] Heart rate 2023-03-12 23:40:00 89 /min [facility] Body temperature 2023-03-12 23:40:00 37.06 Tracy [facility] Respiratory rate 2023-03-12 23:40:00 16 /min [facility] Body height 2023-03-12 23:40:00 162.6 cm [facility] Body weight 2023-03-12 23:40:00 104.463 kg [facility] BMI 2023-03-12 23:40:00 39.53 kg/m2 [facility] Oxygen saturation in Arterial blood by Pulse oximetry 2023-03-12 23:40:00 98 /min [facility] Heart rate 2023-03-12 23:40:00 89 /min [facility] Body temperature 2023-03-12 23:40:00 37.06 Tracy [facility] Respiratory rate 2023-03-12 23:40:00 16 /min [facility] Body height 2023-03-12 23:40:00 162.6 cm [facility] Body weight 2023-03-12 23:40:00 104.463 kg [facility] BMI 2023-03-12 23:40:00 39.53 kg/m2 [facility] Oxygen saturation in Arterial blood by Pulse oximetry 2023-03-12 23:40:00 98 /min [facility] Systolic blood pressure 2022-12-21 18:00:00 172 mm[Hg] [facility] Diastolic blood pressure 2022-12-21 18:00:00 106 mm[Hg] [facility] Heart rate 2022-12-21 18:00:00 90 /min [facility] Body temperature 2022-12-21 18:00:00 36.89 Tracy [facility] Respiratory rate 2022-12-21 18:00:00 15 /min [facility] Oxygen saturation in Arterial blood by Pulse oximetry 2022-12-21 18:00:00 98 /min [facility] Body height 2022-12-21 14:32:00 162.6 cm [facility] Body weight 2022-12-21 14:32:00 106.142 kg [facility] BMI 2022-12-21 14:32:00 40.17 kg/m2 [facility] Systolic blood pressure 2022-12-07 20:52:00 133 mm[Hg] [facility] Diastolic blood pressure 2022-12-07 20:52:00 76 mm[Hg] [facility] Heart rate 2022-12-07 20:52:00 76 /min [facility] Body height 2022-12-07 20:52:00 162.6 cm [facility] Body weight 2022-12-07 20:52:00 106.369 kg [facility] BMI 2022-12-07 20:52:00 40.25 kg/m2 [facility] Oxygen saturation in Arterial blood by Pulse oximetry 2022-12-07 20:52:00 97 /min [facility] Systolic blood pressure 2022-10-12 20:49:00 139 mm[Hg] [facility] Diastolic blood pressure 2022-10-12 20:49:00 90 mm[Hg] [facility] Heart rate 2022-10-12 20:49:00 75 /min [facility] Body temperature 2022-10-12 20:49:00 36.61 Tracy [facility] Respiratory rate 2022-10-12 20:49:00 18 /min [facility] Body weight 2022-10-12 20:49:00 102.83 kg [facility] BMI 2022-10-12 20:49:00 38.91 kg/m2 [facility] Oxygen saturation in Arterial blood by Pulse oximetry 2022-10-12 20:49:00 99 /min [facility] Systolic blood pressure 2022-09-28 22:00:00 176 mm[Hg] [facility] Diastolic blood pressure 2022-09-28 22:00:00 116 mm[Hg] [facility] Heart rate 2022-09-28 20:06:00 91 /min [facility] Body temperature 2022-09-28 20:06:00 37.33 Tracy [facility] Respiratory rate 2022-09-28 20:06:00 18 /min [facility] Body height 2022-09-28 20:06:00 162.6 cm [facility] Body weight 2022-09-28 20:06:00 103.556 kg [facility] BMI 2022-09-28 20:06:00 39.19 kg/m2 [facility] Oxygen saturation in Arterial blood by Pulse oximetry 2022-09-28 20:06:00 98 /min [facility] Systolic blood pressure 2022-08-08 08:05:00 137 mm[Hg] [facility] Diastolic blood pressure 2022-08-08 08:05:00 90 mm[Hg] [facility] Heart rate 2022-08-08 08:05:00 98 /min [facility] Respiratory rate 2022-08-08 08:05:00 23 /min [facility] Oxygen saturation in Arterial blood by Pulse oximetry 2022-08-08 08:05:00 94 /min [facility] Body temperature 2022-08-08 07:45:00 38.06 Tracy [facility] Body height 2022-08-08 03:38:00 162.6 cm [facility] Body weight 2022-08-08 03:38:00 99.111 kg [facility] BMI 2022-08-08 03:38:00 37.51 kg/m2 [facility] Systolic blood pressure 2022-06-18 20:49:00 171 mm[Hg] [facility] Diastolic blood pressure 2022-06-18 20:49:00 106 mm[Hg] [facility] Heart rate 2022-06-18 20:47:00 119 /min [facility] Body temperature 2022-06-18 20:47:00 39.5 Tracy [facility] Respiratory rate 2022-06-18 20:47:00 18 /min [facility] Body height 2022-06-18 20:47:00 160 cm [facility] Body weight 2022-06-18 20:47:00 95.255 kg [facility] BMI 2022-06-18 20:47:00 37.20 kg/m2 [facility] Oxygen saturation in Arterial blood by Pulse oximetry 2022-06-18 20:47:00 97 /min [facility] Systolic blood pressure 2022-05-19 21:35:00 156 mm[Hg] [facility] Diastolic blood pressure 2022-05-19 21:35:00 108 mm[Hg] [facility] Heart rate 2022-05-19 21:33:00 78 /min [facility] Respiratory rate 2022-05-19 21:33:00 18 /min [facility] Body height 2022-05-19 21:33:00 162.6 cm [facility] Body weight 2022-05-19 21:33:00 97.523 kg [facility] BMI 2022-05-19 21:33:00 36.90 kg/m2 [facility] Oxygen saturation in Arterial blood by Pulse oximetry 2022-05-19 21:33:00 100 /min [facility] Systolic blood pressure 2022-05-17 20:54:00 178 mm[Hg] [facility] Diastolic blood pressure 2022-05-17 20:54:00 134 mm[Hg] [facility] Heart rate 2022-05-17 20:54:00 83 /min [facility] Respiratory rate 2022-05-17 20:51:00 19 /min [facility] Body height 2022-05-17 20:51:00 160 cm [facility] Body weight 2022-05-17 20:51:00 94.847 kg [facility] BMI 2022-05-17 20:51:00 37.04 kg/m2 [facility] Oxygen saturation in Arterial blood by Pulse oximetry 2022-05-17 20:51:00 95 /min [facility] Systolic blood pressure 2022-05-08 19:32:00 139 mm[Hg] [facility] Diastolic blood pressure 2022-05-08 19:32:00 92 mm[Hg] [facility] Heart rate 2022-05-08 19:32:00 63 /min [facility] Oxygen saturation in Arterial blood by Pulse oximetry 2022-05-08 19:32:00 100 /min [facility] Body temperature 2022-05-08 19:30:00 36.67 Tracy [facility] Respiratory rate 2022-05-08 19:30:00 18 /min [facility] Body height 2022-05-08 19:30:00 160 cm [facility] Body weight 2022-05-08 19:30:00 94.212 kg [facility] BMI 2022-05-08 19:30:00 36.79 kg/m2 [facility] Systolic blood pressure 2022-04-25 20:20:00 156 mm[Hg] [facility] Diastolic blood pressure 2022-04-25 20:20:00 115 mm[Hg] [facility] Heart rate 2022-04-25 20:20:00 84 /min [facility] Body temperature 2022-04-25 20:20:00 37.11 Tracy [facility] Respiratory rate 2022-04-25 20:20:00 18 /min [facility] Body height 2022-04-25 20:20:00 162.6 cm [facility] Body weight 2022-04-25 20:20:00 93.622 kg [facility] BMI 2022-04-25 20:20:00 35.43 kg/m2 [facility] Oxygen saturation in Arterial blood by Pulse oximetry 2022-04-25 20:20:00 100 /min [facility] Systolic blood pressure 2022-04-18 20:42:00 147 mm[Hg] [facility] Diastolic blood pressure 2022-04-18 20:42:00 88 mm[Hg] [facility] Heart rate 2022-04-18 20:42:00 78 /min [facility] Body temperature 2022-04-18 20:42:00 37.5 Tracy [facility] Respiratory rate 2022-04-18 20:42:00 18 /min [facility] Body height 2022-04-18 20:42:00 162.6 cm [facility] Body weight 2022-04-18 20:42:00 95.89 kg [facility] BMI 2022-04-18 20:42:00 36.29 kg/m2 [facility] Oxygen saturation in Arterial blood by Pulse oximetry 2022-04-18 20:42:00 100 /min [facility] Systolic blood pressure 2022-04-06 20:26:00 138 mm[Hg] [facility] Diastolic blood pressure 2022-04-06 20:26:00 91 mm[Hg] [facility] Heart rate 2022-04-06 20:26:00 83 /min [facility] Body temperature 2022-04-06 20:26:00 36.39 Tracy [facility] Respiratory rate 2022-04-06 20:26:00 18 /min [facility] Body height 2022-04-06 20:26:00 162.6 cm [facility] Body weight 2022-04-06 20:26:00 94.847 kg [facility] BMI 2022-04-06 20:26:00 35.89 kg/m2 [facility] Oxygen saturation in Arterial blood by Pulse oximetry 2022-04-06 20:26:00 99 /min [facility] Systolic blood pressure 2022-04-03 13:14:00 175 mm[Hg] [facility] Diastolic blood pressure 2022-04-03 13:14:00 117 mm[Hg] [facility] Heart rate 2022-04-03 13:09:00 75 /min [facility] Body temperature 2022-04-03 13:09:00 36.56 Tracy [facility] Respiratory rate 2022-04-03 13:09:00 18 /min [facility] Body height 2022-04-03 13:09:00 162.6 cm [facility] Body weight 2022-04-03 13:09:00 93.532 kg [facility] BMI 2022-04-03 13:09:00 35.39 kg/m2 [facility] Oxygen saturation in Arterial blood by Pulse oximetry 2022-04-03 13:09:00 99 /min [facility] Systolic blood pressure 2022-03-28 20:40:00 200 mm[Hg] [facility] Diastolic blood pressure 2022-03-28 20:40:00 124 mm[Hg] [facility] Heart rate 2022-03-28 19:58:00 90 /min [facility] Body temperature 2022-03-28 19:58:00 36.94 Tracy [facility] Respiratory rate 2022-03-28 19:58:00 18 /min [facility] Body height 2022-03-28 19:58:00 162.6 cm [facility] Body weight 2022-03-28 19:58:00 95.754 kg [facility] BMI 2022-03-28 19:58:00 36.24 kg/m2 [facility] Oxygen saturation in Arterial blood by Pulse oximetry 2022-03-28 19:58:00 100 /min [facility] Procedures Procedure Date / Time Performed Performing Clinician Source POCT TEST 2024-04-16 01:22:00 Reyna Fraga ra [facility] EKG-12 LEAD 2024-03-12 04:10:05 Wes Aburto [facility] URINALYSIS 2024-03-12 02:14:00 Wes Aburto [facility] TROPONIN I 2024-03-12 02:06:00 Wes Aburto [facility] COMP. METABOLIC PANEL (55212) 2024-03-12 02:06:00 Wes Aburto [facility] CBC WITH DIFF 2024-03-12 02:06:00 Wes Aburto [facility] AUTHORIZATION FOR RELEASE OF PHI 2023-10-02 05:01:00 Doctor Unassigned, [place] [facility] ASSIGNMENT OF BENEFITS 2023-08-05 01:48:02 Docto r Unassigned, [place] [facility] RAPID STREP SCREEN FOR GROUP A 2023-08-05 01:24:00 Jomar Moyer [facility] CONSENT/REFUSAL FOR DIAGNOSIS AND TREATMENT 2023-08-05 01:04:03 Doctor Unassigned, [place] [facility] BASIC METABOLIC PANEL (NA, K, CL, CO2, GLUCOSE, BUN, CREATININE, CA) 2023-08-02 03:23:00 Rebeca Rubin [facility] CBC WITH DIFF 2023-08-02 03:23:00 Rebeca Rubin [facility] URINALYSIS 2023-08-02 03:23:00 Rebeca Rubin [facility] RAPID STREP SCREEN FOR GROUP A 2023-08-02 03:23:00 Rebeca Rubin [facility] RAPID INFLUENZA A/B 2023-08-02 03:23:00 Rebeca Rubin [facility] COVID-19 (ID NOW RAPID TESTING) 2023-08-02 03:23:00 Rebeca Rubin [facility] LACTIC ACID WHOLE BLOOD 2023-08-02 03:21:00 Bc Rubin [facility] POCT TEST 2023-08-02 03:02:00 Rebeca Rubin [facility] XR CHEST 1 VW 2023-08-02 02:51:07 Rebeca Rubin [facility] CONSENT/REFUSAL FOR DIAGNOSIS AND TREATMENT 2023-08-02 02:15:59 Doctor Unassigned, [place] [facility] POCT SARS-COV-2 ANTIGEN (BINAX NOW) 2023-05-08 19:56:00 Priya Uriostegui [facility] POCT MOLECULAR FLU 2023-05-08 19:43:00 Unknown, Attend [facility] POCT MOLECULAR STREP 2023-05-08 19:14:00 Unknown, Attjusto sheldon [facility] COMP. METABOLIC PANEL ([id number]) 2023-03-13 01:30:00 Qi Bee [facility] CBC WITH DIFF 2023-03-13 01:30:00 Qi Bee [facility] LACTIC ACID WHOLE BLOOD 2023-03-13 01:30:00 Qi Song [facility] POCT TEST 2023-03-13 01:29:00 Laine Bee [facility] ASSIGNMENT OF BENEFITS 2023-03-13 01:13:26 Docto r Unassigned, [place] [facility] CONSENT/REFUSAL FOR DIAGNOSIS AND TREATMENT 2023-03-12 23:46:37 Doctor Unassigned, [place] [facility] ABORH CONFIRMATION (LAB ONLY) 2022-12-21 16:40:00 Kerri Cm [facility] US FIRST TRIMESTER LESS THAN 14 WEEKS WITH TRANSVAGINAL 2022-12-21 15:23:25 Kerri Cm [facility] POCT TEST 2022-12-21 14:46:00 Kerri Cm [facility] TOTAL BETA HCG ASSAY 2022-12-21 14:45:00 Luis Cm [facility] URINALYSIS 2022-12-21 14:45:00 Kerri Cm [facility] HB ABO GROUPING 2022-12-21 14:45:00 Kerri Cm [facility] CONSENT/REFUSAL FOR DIAGNOSIS AND TREATMENT 2022-12-21 14:26:21 Doctor Unassigned, [place] [facility] ASSIGNMENT OF BENEFITS 2022-09-28 22:43:23 Docto r Unassigned, [place] [facility] CT CHEST PULMONARY ANGIOGRAM 2022-08-08 05:06:44 Michelle Lunsford [facility] MAGNESIUM 2022-08-08 04:10:00 Michelle Lunsford [facility] TROPONIN I 2022-08-08 04:10:00 [facility] COMP. METABOLIC PANEL ([id number]) 2022-08-08 04:10:00 Michelle Lunsford [facility] CBC WITH DIFF 2022-08-08 04:10:00 [facility] 2022-08-08 04:10:00 Michelle Lunsford [facility] URINALYSIS 2022-08-08 04:10:00 Michelle Lunsford [facility] RAPID INFLUENZA A/B 2022-08-08 04:10:00 Michelle Lunsford [facility] N-TERMINAL PRO-BNP 2022-08-08 04:10:00 Michelle Lunsford [facility] COVID-19 (ID NOW RAPID TESTING) 2022-08-08 04:10:00 Michelle Lunsford [facility] NOTICE OF PRIVACY PRACTICES 2022-08-08 03:27:23 Doctor Unassigned, [place] [facility] CONSENT/REFUSAL FOR DIAGNOSIS AND TREATMENT 2022-08-08 03:26:39 Doctor Unassigned, [place] [facility] POCT MOLECULAR FLU 2022-06-18 20:51:00 Unknown, Attend [facility] POCT MOLECULAR STREP 2022-06-18 20:44:00 Unknown, Jett sheldon [facility] SLEEP STUDY DATA REPORT 2022-05-11 05:01:00 Doct or Unassigned, [place] [facility] POCT MOLECULAR FLU 2022-04-06 20:32:00 Unknown, Attend [facility] POCT MOLECULAR STREP 2022-04-06 20:30:00 Unknown, Jett sheldon [facility] XR SPINE THORACIC 2 VW 2022-04-03 14:35:51 Jimmy Laboy [facility] XR LUMBAR SPINE 3 VW 2022-04-03 14:35:31 Bassam Laboy hukbarry [facility] CREATINE KINASE 2022-03-28 22:19:00 Justo More [facility] FERRITIN SERUM 2022-03-28 22:19:00 Justo More [facility] IRON 2022-03-28 22:19:00 Justo More [facility] RHEUMATOID FACTOR 2022-03-28 22:19:00 Alondra More [facility] TOTAL IRON BINDING CAPACITY 2022-03-28 22:19:00 Alondra More [facility] FREE T4 2022-03-28 22:19:00 Justo More [facility] THYROID STIMULATING HORMONE 2022-03-28 22:19:00 Alondra More [facility] SEDIMENTATION RATE 2022-03-28 22:19:00 Alondra More [facility] CBC WITH DIFF 2022-03-28 22:19:00 Justo More [facility] ANTI-NUCLEAR ANTIBODY SCREEN 2022-03-28 22:19:00 Alondra More [facility] HCV ANTIBODY 2022-03-28 22:19:00 Justo More [facility] ANTICARDIOLIPIN ANTIBODIES 2022-03-28 22:19:00 Alondra Blackburn [facility] CYCLIC CITRULLINATED PEPTIDE 2022-03-28 22:19:00 Alondra More [facility] ANTI-SM/BLOCKER AND SEWER 2022-03-28 22:19:00 Justo More [facility] ANTI-DOUBLE STRANDED DNA 2022-03-28 22:19:00 Alondra Alejandre [facility] FREE T3 2022-03-28 22:19:00 Justo More [facility] ANTI-NUCLEAR ANTIBODY-PATHOLOGIST INTERPRETATION 2022-03-28 22:19:00 Alondra More [facility] Encounters Start Date/Time End Date/Time Encounter Type Admission Type Attending Clinicians Care Facility Care Department Encounter ID Source 2024-04-15 18:51:00 2024-04-15 21:43:00 Emergency X TRUPTI FRAGA SANDRA [facility] [id number] [facility] 2024-04-15 18:51:00 2024-04-15 21:43:00 Emergency Trupti Fraga [facility] AT [facility] 1.2.840.114 350.1.13.10 4.2.7.2.686 [id number] [facility] 2024-03-12 19:59:00 2024-03-12 22:26:00 Emergency E MAVIS HERNANDEZ [facility] [id number] [facility] 2024-03-11 20:49:00 2024-03-11 23:13:00 Emergency X WES ABURTO ERIN [facility] [id number] [facility] 2024-03-11 20:49:00 2024-03-11 23:13:00 Emergency Wes Aburto [facility] AT [facility] 1.2.840.114 350.1.13.10 4.2.7.2.686 [id number] [id number] [facility] 2023-10-02 00:00:00 2023-10-02 00:00:00 Telephone Rachel [facility] 1.2.840.114 350.1.13.10 4.2.7.2.686 [id number] [id number] [facility] 2023-10-02 00:00:00 2023-10-02 00:00:00 Orders Only Doctor Unassigned, Hansford [facility] 1.2.840.114 350.1.13.10 4.2.7.2.686 [id number] [id number] [facility] 2023-08-04 19:22:00 2023-08-04 21:21:00 Emergency X JOMAR MOYER [facility] [id number] [facility] 2023-08-04 19:22:00 2023-08-04 21:21:00 Emergency Jomar Moyer [facility] 1.2.840.114 350.1.13.10 4.2.7.2.686 [id number] [facility] 2023-08-01 20:28:00 2023-08-01 23:28:00 Emergency X REBECA RUBIN [facility] [id number] [facility] 2023-08-01 20:28:00 2023-08-01 23:28:00 Emergency Rebeca Rubin [facility] 1.2840.114 350.1.13.10 4.2.7.2.686 [id number] [id number] [facility] 2023-08-01 00:00:00 2023-08-01 00:00:00 Orders Only Doctor Unassigned, Hansford [facility] 1.2840.114 350.1.13.10 4.2.7.2.686 [id number] [facility] 2023-05-08 14:00:00 2023-05-08 14:20:00 Urgent Care Priya Uriostegui Unknown, Attending REPLACED BY [facility] 1.840.114 350.1.13.10 4.2.7.2.686 [id number] [facility] 2023-05-08 14:00:00 2023-05-08 14:00:[address] [facility] [id number] [facility] 2023-03-12 19:01:00 2023-03-12 22:57:00 Emergency X RICHARD BEEDA [facility] [id number] [facility] 2023-03-12 19:01:00 2023-03-12 22:57:00 Emergency Grahambianca Qi [facility] 1.2840.114 350.1.13.10 4.2.7.2.686 [id number] [id number] [facility] 2023-03-12 18:45:00 2023-03-12 18:46:[address] [facility] [id number] [facility] 2023-03-12 18:45:00 2023-03-12 18:46:10 Nurse Visit Nurse, [facility] Unknown, Attending [facility] 1..114 350.1.13.10 4.2.7.2.686 [id number] [facility] 2023-01-15 09:20:00 2023-01-15 09:20:00 Outpatient R [facility] [id number] [facility] 2022-12-21 09:33:00 2022-12-21 13:21:00 Emergency X KERRI CM [facility] [id number] [facility] 2022-12-21 09:33:00 2022-12-21 13:21:00 Emergency DanymarcellaKerri [facility] 1..114 350.1.13.10 4.2.7.2.686 [id number] 084 [id number] [facility] 2022-12-11 00:00:00 2022-12-11 00:00:00 Patient Secure Msg Doctor Unassigned, Hansford [facility] 1..114 350.1.13.10 4.2.7.2.686 [id number] [facility] 2022-12-08 00:00:00 2022-12-08 00:00:00 Patient Secure Msg Steele [facility] BUILDING 1.114 350.1.13.10 4.2.7.2.686 [id number] 059 [id number] [facility] 2022-12-07 16:30:00 2022-12-07 16:45:00 Lidder Visit Pob, Adc Lab Main Cedric [facility] BU[facility] 1.114 350.1.13.10 4.2.7.2.686 [id number] [facility] 2022-12-07 16:30:00 2022-12-07 16:30:00 [id number] 2022-12-07 15:40:00 2022-12-07 16:11:06 [facility] 1.2.840.114 350.1.13.10 4.2.7.2.686 [id number] [facility] 2022-12-06 15:15:00 2022-12-06 15:30:00 Lidder Visit 2, [facility] 1.2.840.114 350.1.13.10 4.2.7.2.686 [id number] [facility] 2022-12-06 15:15:00 2022-12-06 15:15:00 [facility] [id number] [facility] 2022-11-22 00:00:00 2022-11-22 00:00:00 Telephone Cedric [facility] 1.2.840.114 350.1.13.10 4.2.7.2.686 [id number] [id number] [facility] 2022-11-06 08:00:00 2022-11-06 08:00:00 Outpatient [facility] [id number] [facility] 2022-10-16 08:00:00 2022-10-16 23:59:00 Outpatient [facility] [id number] [facility] 2022-10-13 00:00:00 2022-10-13 00:00:00 Patient Secure Msg Cedric [facility] BU[facility] 1.2.840.114 350.1.13.10 4.2.7.2.686 [id number] 059 [id number] [facility] 2022-10-12 16:00:00 2022-10-12 16:15:00 Lidder Visit 2, [facility] 1.2.840.114 350.1.13.10 4.2.7.2.686 [id number] 353 [id number] [facility] 2022-10-12 16:00:00 2022-10-12 16:00:00 Outpatient [facility] [id number] [facility] 2022-10-12 15:40:00 2022-10-12 15:58:43 Office Visit Cedric [facility] 1.2.840.114 350.1.13.10 4.2.7.2.686 [id number] 059 [id number] [facility] 2022-10-10 14:20:00 2022-10-10 14:20:00 Outpatient [facility] [id number] [facility] 2022-10-09 14:00:00 2022-10-09 14:00:00 Outpatient R [facility] [id number] [facility] 2022-10-09 00:00:00 2022-10-09 00:00:00 Telephone Cedric [facility] BU[facility] 1.2.840.114 350.1.13.10 4.2.7.2.686 [id number] [id number] [facility] 2022-10-06 10:20:00 2022-10-06 10:20:00 Outpatient R [facility] [id number] [facility] 2022-10-05 00:00:00 2022-10-05 00:00:00 Telephone Cedric [facility] BU[facility] 1.2840.114 350.1.13.10 4.2.7.2.686 [id number] [facility] 2022-09-30 00:00:00 2022-09-30 00:00:00 [facility] 1.2840.114 350.1.13.10 4.2.7.2.686 [id number] [facility] 2022-09-28 16:44:26 2022-09-28 23:59:00 Outpatient R [facility] [id number] [facility] 2022-09-28 16:44:26 2022-09-28 23:59:00 [facility]40.114 350.1.13.10 4.2.7.2.686 [id number] [facility] 2022-09-28 14:00:00 2022-09-28 15:36:43 [facility] 1.2840.114 350.1.13.10 4.2.7.2.686 [id number] [facility] 2022-09-28 00:00:00 2022-09-28 00:00:00 Orders Only Doctor Unassigned, Hansford [facility] 1.2840.114 350.1.13.10 4.2.7.2.686 [id number] [facility] 2022-09-13 00:00:00 2022-09-13 00:00:00 Refill Doctor Unassigned, Hansford [facility] 1.2840.114 350.1.13.10 4.2.7.2.686 [id number] [facility] 2022-08-08 09:20:00 2022-08-08 09:20:00 Outpatient R RACHEL STEELE [facility] [id number] [facility] 2022-08-07 21:42:00 2022-08-08 02:11:00 Emergency X Michelle LUNSFORD [facility] [id number] [facility] 2022-08-07 21:42:00 2022-08-08 02:11:00 Emergency Michelle Lunsford Jackelyn [facility] 1..114 350.1.13.10 4.2.7.2.686 [id number] [facility] 2022-07-20 00:00:00 2022-07-20 00:00:00 RefAlondra Herrera [facility] 1.84.114 350.1.13.10 4.2.7.2.686 [id number] [facility] 2022-06-20 16:00:00 2022-06-20 16:00:00 Outpatient ÁNGELA MADRID OGECHUKWU [facility] [id number] [facility] 2022-06-18 14:20:00 2022-06-18 14:40:00 Urgent Care Josue Gates Unknown, Attending REPLACED BY [facility] 1.84.114 350.1.13.10 4.2.7.2.686 [id number] [facility] 2022-06-18 14:20:00 2022-06-18 14:20:[address] [facility] [id number] [facility] 2022-06-12 00:00:00 2022-06-12 00:00:00 Patient Secure Msg Doctor Unassigned, Hansford [facility] 1.84.114 350.1.13.10 4.2.7.2.686 [id number] [facility] 2022-05-22 00:00:00 2022-05-22 00:00:[address]Á[facility]ela [facility] 1.2.840.114 350.1.13.10 4.2.7.2.686 [id number] [facility] 2022-05-19 16:20:00 2022-05-19 17:45:59 Outpatient R ALONDRA MORE [facility] [id number] [facility] 2022-05-19 16:20:00 2022-05-19 17:45:59 Office Visit Alondra More [facility] BUILDING 1.2.840.114 350.1.13.10 4.2.7.2.686 [id number] [facility] 2022-05-17 15:40:00 2022-05-17 16:09:17 Outpatient R MARIN PENA STRAHIL [facility] [id number] [facility] 2022-05-17 15:40:00 2022-05-17 16:09:17 Office Visit Marin Pena [facility] BUILDING 1..840.114 350.1.13.10 4.2.7.2.686 [id number] [facility] 2022-05-17 00:00:00 2022-05-17 00:00:00 Telephone Marin Pena [facility] 1..840.114 350.1.13.10 4.2.7.2.686 [id number] [facility] 2022-05-17 00:00:00 2022-05-17 00:00:00 Refill Alondra More [facility] BUILDING 1.2.840.114 350.1.13.10 4.2.7.2.686 [id number] [facility] 2022-05-16 00:00:00 2022-05-16 00:00:00 Patient Secure Msg Rachel Steele [facility] BUILDING 1.2.840.114 350.1.13.10 4.2.7.2.686 [id number] [facility] 2022-05-11 12:00:00 2022-05-11 12:15:00 Lidder Visit [facility] Sleep Lab Marin Pena [facility] 1..840.114 350.1.13.10 4.2.7.2.686 [id number] [facility] 2022-05-11 12:00:00 2022-05-11 12:00:00 Outpatient R MARIN PENA STRAMSLaine [facility] [id number] [facility] 2022-05-11 00:00:00 2022-05-11 00:00:00 Orders Only Doctor Unassigned, Hansford [facility] 1.2.840.114 350.1.13.10 4.2.7.2.686 [id number] [facility] 2022-05-08 14:20:00 2022-05-08 14:56:47 Outpatient R RACHEL STEELE [facility] [id number] [facility] 2022-05-08 14:20:00 2022-05-08 14:56:47 Office Visit Rachel Steele [facility] BUILDING 1.2.840.114 350.1.13.10 4.2.7.2.686 [id number] [facility] 2022-05-08 14:20:00 2022-05-08 14:20:00 [address] [facility] [id number] [facility] 2022-04-25 15:00:00 2022-04-25 16:00:57 Outpatient Alexandr ALONDRA MORE [facility] [id number] [facility] 2022-04-25 15:00:00 2022-04-25 16:00:57 Office Visit Alondra More [facility] 1.2.840.114 350.1.13.10 4.2.7.2.686 [id number] [facility] 2022-04-18 15:40:00 2022-04-18 16:53:[address] [facility] [id number] [facility] 2022-04-18 15:40:00 2022-04-18 16:53:22 Office Visit Alondra More Roslyn [facility] 1.2.840.114 350.1.13.10 4.2.7.2.686 [id number] [facility] 2022-04-18 15:40:00 2022-04-18 15:40:[address] [facility] [id number] [facility] 2022-04-11 00:00:00 2022-04-11 00:00:00 Patient Secure Msg Doctor Unassigned, Hansford [facility] 1.2.840.114 350.1.13.10 4.2.7.2.686 [id number] [facility] 2022-04-10 13:50:39 2022-04-10 23:59:[address] [facility] [id number] [facility] 2022-04-10 14:00:00 2022-04-10 14:00:00 [facility] [id number] [facility] 2022-04-06 16:00:00 2022-04-06 16:00:00 Urgent Care Kaylyn Fitzgerald Unknown, [facility] 1.2.840.114 350.1.13.10 4.2.7.2.686 [id number] [facility] 2022-04-06 16:00:00 2022-04-06 15:43:01 Outpatient R KAYLYN FITZ[address]D [facility] [id number] [facility] 2022-04-05 14:14:21 2022-04-05 23:59:00 Outpatient R ÁNGELA LABOY OGECHUKWU [facility] [id number] [facility] 2022-04-05 14:14:21 2022-04-05 23:59:00 Hospital Encounter AnaMarlene holderbarry [facility] 1.2.840.114 350.1.13.10 4.2.7.2.686 [id number] [facility] 2022-04-03 09:22:59 2022-04-03 23:59:00 Hospital Encounter Marlene Laboybarry [facility] 1.2.840.114 350.1.13.10 4.2.7.2.686 [id number] [facility] 2022-04-03 09:22:59 2022-04-03 09:22:59 Outpatient R ÁNGELA LABOY OGECHUKWU [facility] [id number] [facility] 2022-04-03 08:51:53 2022-04-03 09:21:00 Outpatient R ÁNGELA LABOY OGECHUKWU [facility] [id number] [facility] 2022-04-03 08:51:53 2022-04-03 09:21:00 Hospital Encounter Ángela Laboy [facility] 1.2.840.114 350.1.13.10 4.2.7.2.686 [id number] [facility] 2022-04-03 08:00:00 2022-04-03 08:40:55 Office Visit Ángela [facility] 1.2.840.114 350.1.13.10 4.2.7.2.686 [id number] [facility] 2022-04-03 08:00:00 2022-04-03 08:00:00 Outpatient R ÁNGELA LABOY [facility] [id number] [facility] 2022-03-28 16:45:00 2022-03-28 17:00:00 Lidder Visit Pob, Adc Lab Main Natalio Rinaldi Elizabeth [facility] BUILDING 1.2.840.114 350.1.13.10 4.2.7.2.686 [id number] [facility] 2022-03-28 14:20:00 2022-03-28 16:41:34 Outpatient R ALONDRA MORE [facility] [id number] [facility] 2022-03-28 14:20:00 2022-03-28 16:41:34 Office Visit Alondra More [facility] BUILDING 1.2.840.114 350.1.13.10 4.2.7.2.686 [id number] [facility] 2022-03-28 14:20:00 2022-03-28 16:41:34 Outpatient R ALONDRA MORE [facility] [id number] [facility] 2022-03-28 00:00:00 2022-03-28 00:00:00 Orders Only Doctor Unassigned, Hansford [facility] 1.2840.114 350.1.13.10 4.2.7.2.686 [id number] [facility] 2022-01-20 12:40:00 2022-01-23 14:00:00 Hospital Encounter Wes Aburto Jayleen García [facility] 1.2840.114 350.1.13.10 4.2.7.2.686 [id number] [facility] 2022-01-20 12:40:00 2022-01-23 14:00:00 Inpatient X RICKYJAYLEEN [facility] LAXMI [id number] [facility] 2019-07-31 18:23:56 2019-07-31 20:48:00 Emergency X SEBASTIEN KOCH [facility] ERT [id number] [facility] Results Test Description Test Time Test Comments Results Result Co mments Source [id number] 02:53:43* Test Item Value Reference Range Interpretation Comme nts TROPONIN I (test code = 8302218007) 0.004 ng/mL <=0.034 TAIWO (test code = TAIWO) Reference (Normal) Range (defined by the 99th percentile reference limit): <= 0.034 ng/mL Note: Cardiac troponin begins to rise 3-4 hours after the onset of ischemia. Repeat in 4-6 hours if the sample was drawn within 3-4 hours of the onset of the symptom and found normal. Diagnosis of myocardial injury is made with acute changes in cTn concentrations with at least one serial sample above the 99th percentile upper reference limit (URL), taken together with the patient's clinical presentation. Biotin has been reported to cause a negative bias, interpret results relative to patient's use of biotin. Lab Interpretation (test code = 95424-6) Normal [facility] (92791)2024-03-12 02:43:21* Test Item Value Reference Range Interpretation Comme nts NA (test code = 8397207237) 137 mmol/L 135-145 K (test code = 7436963996) 3.6 mmol/L 3.5-5.0 CL (test code = 6468376805) 100 mmol/L 98-108 CO2 TOTAL (test code = 7066533202) 28 mmol/L 23-31 AGAP (test code = 8740738405) 9 2-16 BUN (test code = 6249661763) 10 mg/dL 7-23 GLUCOSE (test code = 8611953063) 100 mg/dL 70-110 CREATININE (test code = 2160-0) 0.76 mg/dL 0.50-1.04 TOTAL BILI (test code = 1126501143) 0.6 mg/dL 0.1-1.1 CALCIUM (test code = 2477036993) 9.3 mg/dL 8.6-10.6 T PROTEIN (test code = 9230965409) 8.1 g/dL 6.3-8.2 ALBUMIN (test code = 0720561857) 4.3 g/dL 3.5-5.0 ALK PHOS (test code = 8933245688) 97 U/L 34-122 ALTv (test code = 1742-6) 34 U/L 5-35 AST(SGOT) (test code = 8997798162) 30 U/L 13-40 eGFR (test code = 67730-5) 99.9 mL/min/1.73m2 CKD-EPI eGFR (20 21). Assuming creatinine has been stable day-to-day for at least three months, the eGFR indicates Category G1 (>= 90 mL/min/1.73 m2) [facility] with [id number] 02:36:41* Test Item Value Reference Range Interpretation Comme nts WBC (test code = 6690-2) 8.79 4.30-11.10 RBC (test code = 789-8) 4.84 3.93-5.25 HGB (test code = 718-7) 12.4 g/dL 11.6-15.0 HCT (test code = 4544-3) 39.1 % 35.7-45.2 MCV (test code = 787-2) 80.8 fL 80.6-95.5 MCH (test code = 785-6) 25.6 pg 25.9-32.8 L MCHC (test code = 786-4) 31.7 g/dL 31.6-35.1 RDW-SD (test code = 08182-1) 43.8 fL 39.0-49.9 RDW-CV (test code = 788-0) 15.0 % 12.0-15.5 PLT (test code = 777-3) 308 166-358 MPV (test code = 48142-1) 10.9 fL 9.5-12.9 NRBC/100 WBC (test code = 1826104474) 0.0 0.0-10.0 NRBC x10^3 (test code = 4754480378) See_Comment [Automated messa ge] The system which generated this result transmitted reference range: 10*3/?L. The reference range was not used to interpret this result as normal/abnormal. GRAN MAT (NEUT) % (test code = 770-8) 53.5 % IMM GRAN % (test code = 9456317049) 0.50 % LYMPH % (test code = 736-9) 37.2 % MONO % (test code = 5905-5) 6.7 % EOS % (test code = 713-8) 1.5 % BASO % (test code = 706-2) 0.6 % GRAN MAT x10^3(ANC) (test code = 2519350245) 4.71 10*3/uL 1.88-7.09 IMM GRAN x10^3 (test code = 4556089601) 0.04 10*3/uL 0.00-0.06 LYMPH x10^3 (test code = 731-0) 3.27 10*3/uL 1.32-3.29 MONO x10^3 (test code = 742-7) 0.59 10*3/uL 0.33-0.92 EOS x10^3 (test code = 711-2) 0.13 10*3/uL 0.03-0.39 BASO x10^3 (test code = 704-7) 0.05 10*3/uL 0.01-0.07 Lab Interpretation (test code = 93515-3) Abnormal [facility] BranchL[facility] Acid Whole Blwxs1510-61-49 03:28:45* Test Item Value Reference Range Interpretation Comme nts LACTIC ACID (test code = 8377131426) 1.18 mmol/L 0.50-2.20 Lab Interpretation (test cod e = 20296-1) [facility] [id number] 03:23:49CHEST SINGLE VIEW CLINICAL HISTORY: Urinary tract infection. Fever. ORDERING PHYSICIAN: KYLAH RUBIN TECHNIQUE: Frontal view of chest COMPARISON: 09/28/2022 FINDINGS: There is a normal cardiomediastinal silhouette. The pulmonary vascularitydoes not appear congested. The lungs appear clear demonstrating no focalpulmonary consolidation, pleural effusion, or pneumothorax. No acuteosseous process is observed.[facility] [id number] 03:02:00* Test Item Value Reference Range Interpretation Comme nts POCT PREG (test code = 1605) Negative On board controls acceptable with C Line (test code = 3574) Yes POCT PREG LOT # (test code = 3575) [id number] POCT PREG TEST DATE ( test code = 3576) 2024-09-30 Lab Interpretation (test cod e = 94072-7) Normal [facility] SARS-COV-2 ANTIGEN (BINAX NOW)2023-05-08 19:56:00* Test Item Value Reference Range Interpretation Comme nts POCT SARS-COV-2 ANTIGEN (test code = 76972-5) Not Detected Not Detected On board controls acceptable with C Line (test code = 3574) No TAIWO (test code = TAIWO) accurate developme nt and interpretation of all internal controls Lab Interpretation (test code = 84510-9) Normal [facility] MOLECULAR [id number] 19:55:09* Test Item Value Reference Range Interpretation Comme nts POCT Molecular FluA (test co de = 83276-4) Negative Negative POCT Molecular FluB (test co de = 28573-9) Negative Negative Lab Interpretation (test cod e = 23113-9) Normal [facility] MOLECULAR [id number] 19:22:15* Test Item Value Reference Range Interpretation Comme nts POCT Molecular Strep (test c ode = 62942-0) Negative Negative Lab Interpretation (test cod e = 08023-3) Normal [facility]. METABOLIC PANEL (32959)2023-03-13 01:55:39* Test Item Value Reference Range Interpretation Comme nts NA (test code = 2963103887) 140 mmol/L 135-145 K (test code = 1577281146) 3.9 mmol/L 3.5-5.0 CL (test code = 7598579610) 104 mmol/L 98-108 CO2 TOTAL (test code = 9048025866) 28 mmol/L 23-31 AGAP (test code = 3855139331) 8 2-16 BUN (test code = 9241450458) 8 mg/dL 7-23 GLUCOSE (test code = 2957289583) 94 mg/dL 70-110 CREATININE (test code = 6546741533) 0.65 mg/dL 0.50-1.04 TOTAL BILI (test code = 9558685608) 0.2 mg/dL 0.1-1.1 CALCIUM (test code = 0695804075) 9.1 mg/dL 8.6-10.6 T PROTEIN (test code = 0494282062) 7.9 g/dL 6.3-8.2 ALBUMIN (test code = 1540102698) 4.3 g/dL 3.5-5.0 ALK PHOS (test code = 2671557529) 70 U/L 34-122 ALTv (test code = 1742-6) 30 U/L 5-35 AST(SGOT) (test code = 2265251536) 35 U/L 13-40 eGFR (test code = 8627912218) 100.0 mL/min/1.73m2 TAIWO (test code = TAIWO) [...] or urine or abnormalities in imaging tests). [facility] WITH [id number] 01:44:20* Test Item Value Reference Range Interpretation Comme nts WBC (test code = 6690-2) 10.40 See_Comment [Automated [employer]] The system which generated this result transmitted reference range: 4.30 - 11.10 10*3/?L. The reference range was not used to interpret this result as normal/abnormal. RBC (test code = 789-8) 4.82 See_Comment [[employer]] The system which generated this result transmitted [...] 33.1 g/dL 31.6-35.1 RDW-SD (test code = 58673-8) 43.1 fL 39.0-49.9 RDW-CV (test code = 788-0) 15.1 % 12.0-15.5 PLT (test code = 777-3) 293 See_Comment [[employer]] The system which generated this result transmitted reference range: 166 - 358 10*3/?L. The reference range was not used to interpret this result as normal/abnormal. MPV (test code = 45443-5) 10.1 fL 9.5-12.9 NRBC/100 WBC (test code = 0587371356) 0.0 See_Comment [Automated me ssage] The system which generated this result transmitted reference range: 0.0 - 10.0 /100 WBCs. The reference range was not used to interpret this result as normal/abnormal. NRBC x10^3 (test code = 1676949071) See_Comment [Automated messa ge] The system which generated this result transmitted reference range: 10*3/?L. The reference range was not used to interpret this result as normal/abnormal. GRAN MAT (NEUT) % (test code = 770-8) 61.8 % IMM GRAN % (test code = 2340694094) 0.30 % LYMPH % (test code = 736-9) 28.7 % MONO % (test code = 5905-5) 7.3 % EOS % (test code = 713-8) 1.4 % BASO % (test code = 706-2) 0.5 % GRAN MAT x10^3(ANC) (test code = 1465656582) 6.43 10*3/uL 1.88-7.09 IMM GRAN x10^3 (test code = 3960928973) 0.03 10*3/uL 0.00-0.06 LYMPH x10^3 (test code = 731-0) 2.98 10*3/uL 1.32-3.29 MONO x10^3 (test code = 742-7) 0.76 10*3/uL 0.33-0.92 EOS x10^3 (test code = 711-2) 0.15 10*3/uL 0.03-0.39 BASO x10^3 (test code = 704-7) 0.05 10*3/uL 0.01-0.07 Lab Interpretation (test code = 70468-4) Abnormal [facility] [id number] 01:29:00* Test Item Value Reference Range Interpretation Comme nts POCT PREG (test code = 1605) Negative On board controls acceptable with C Line (test code = 3574) Yes POCT PREG LOT # (test code = 3575) [id number] POCT PREG TEST DATE ( test code = 3576) 07/25/2024 Lab Interpretation (test cod e = 21923-7) [facility]2022-12-21 17:08:00* Test Item Value Reference Range Interpretation Comme nts ABO & RH (test code = 20) [facility] 15:50:37* Test Item Value Reference Range Interpretation Comme nts BETA HCG (test code = 0458211833) 1790.00 See_Comment [Automated Ad.IQa ge] The system which generated this result transmitted reference range: Non- female and male patients: <5 mIU/mL. The reference range was not used to interpret this result as normal/abnormal. TAIWO (test code = TAIWO) Gestational Age ?Range (mIU/mL) 1-10 ?Weeks ?82-88683471-79 Weeks ?96564-82124131-92 Weeks ?9907-23319684-92 Weeks ?1530-753643 Biotin has been reported to cause a negative bias, interpret results relative to patient's use of biotin. [facility] - ONCE [id number] 15:06:00 * Test Item Value Reference Range Interpretation Comme nts ABO & RH (test code = 20) O Positive IAT (test code = 1185) Negative [facility] [id number] 14:46:00* Test Item Value Reference Range Interpretation Comme nts POCT PREG (test code = 1605) Positive On board controls acceptable with C Line (test code = 3574) Yes POCT PREG LOT # (test code = 3575) [id number] POCT PREG TEST DATE (test code = 3576) 04/27/2024 Lab Interpretation (test cod e = 72674-8) Normal [facility] MOLECULAR [id number] 20:57:04* Test Item Value Reference Range Interpretation Comme nts POCT Molecular FluA (test co de = 73675-9) Positive Negative A Lab Interpretation (test cod e = 73826-9) Abnormal [facility] MOLECULAR [id number] 20:55:03* Test Item Value Reference Range Interpretation Comme nts POCT Molecular Strep (test c ode = 35856-2) Negative Negative Lab Interpretation (test cod e = 30087-0) Normal [facility] MOLECULAR [id number] 20:44:38* Test Item Value Reference Range Interpretation Comme nts POCT Molecular FluA (test co de = 77487-4) Negative Negative POCT Molecular FluB (test co de = 00385-4) Negative Negative Lab Interpretation (test cod e = 75977-5) Normal [facility] MOLECULAR [id number] 20:38:38* Test Item Value Reference Range Interpretation Comme nts POCT Molecular Strep (test c ode = 77311-5) Negative Negative Lab Interpretation (test cod e = 53885-5) Normal [facility] CITRULLINATED [id number] 00:16:38* Test Item Value Reference Range Interpretation Comme [facility] CCP IgG (test code = 4658141560) 3.1 U 0-20 TAIWO (test code = TAIWO) INTERPRETATION: UNITS: Negative <20Weak Positive 20-39Moderate Positive 40-59Strong Positive >=60 A positive result indicates the presence of CCP IgG antibodies and suggests the possibility of RA antibodies and suggests the possibility of SLE. A negative result indicates no CCP IgG antibodies or levels below the cut-off ofthe assay. Lab Interpretation (test code = 06794-9) Normal [facility] CITRULLINATED [id number] 00:16:38* Test Item Value Reference Range Interpretation Comme [facility] CCP IgG (test code = 3842956731) 3.1 U 0-20 TAIWO (test code = TAIWO) INTERPRETATION: UNITS: Negative <20Weak Positive 20-39Moderate Positive 40-59Strong Positive >=60 A positive result indicates the presence of CCP IgG antibodies and suggests the possibility of RA antibodies and suggests the possibility of SLE. A negative result indicates no CCP IgG antibodies or levels below the cut-off ofthe assay. Lab Interpretation (test code = 20576-1) Normal [facility]I-NUCLEAR ANTIBODY-PATHOLOGIST [id number] 16:38:36ANA - Pathologist InterpretationANA HEp-2 IIFA Pathologist [...] purpura, thyroid disease, discoid lupus, or fibromyalgia. (https://pubmed.ncbi.nlm.nih.gov/89588135/, https:/ /pubmed.ncbi.nlm.nih.gov/21108319/) ? ? Therefore, a diagnosis cannot be based exclusively on MIKA detection and/or pattern and thus should be made via the integration of patient history, physical exam findings, and other diagnostic tests as clinically indicated. Kylah Caba MD ?03/30/2022 ?11:38 AM 03/30/2022 11:38 AM [facility] SERVICESUniversity [facility] Medical BranchANTI- NUCLEAR ANTIBODY-PATHOLOGIST [id number] 16:38:36ANA - Pathologist InterpretationANA HEp-2 IIFA Pathologist [...] of rheumatoid arthritis, multiple sclerosis, idiopathic thrombocytopenic purpura,thyroid disease, discoid lupus, or fibromyalgia. (https://pubmed.ncbi.nlm.nih.gov/50361938/, https:/ /pubmed.ncbi.nlm.nih.gov/09117968/) ? ? Therefore, a diagnosis cannot be based exclusively on MIKA detection and/or pattern and thus should be made via the integration of patient history, physical exam findings, and other diagnostic tests as clinically indicated. Kylah Caba MD ?03/30/2022 ?11:38 AM 03/30/2022 11:38 AM [facility]Un[facility] HospitalANTI- NUCLEAR ANTIBODY [id number] 16:23:26* Test Item Value Reference Range Interpretation Comme nts MIKA (test code = 8934043422) Negative Negative TAIWO (test code = TAIWO) Negative: ?No Anti-Nuclear Antibodies detected by IFA. Positive: ?MIKA IFA screen performed with a 1:80 dilution in adults and a 1:40 dilution in pediatrics. ?A titer is performed and reported separately when the MIKA is "Positive" or when "Cytoplasmic staining is observed." Lab Interpretation (test code = 24714-5) Normal [facility]I-NUCLE[facility] ANTIBODY [id number] 16:23:26* Test Item Value Reference Range Interpretation Comme nts MIKA (test code = 8574371697) Negative Negative TAIWO (test code = TAIWO) Negative: ?No Anti-Nuclear Antibodies detected by IFA. Positive: ?MIKA IFA screen performed with a 1:80 dilution in adults and a 1:40 dilution in pediatrics. ?A titer is performed and reported separately when the MIKA is "Positive" or when "Cytoplasmic staining is observed." Lab Interpretation (test code = 04575-5) Normal [facility]manANTICARDIOLIPIN [id number] 01:54:42 * Test Item Value Reference Range Interpretation Comments Anticardiolipin Antibody IgG (test code = 0232756472) See_Comment [Automated message] The system which generated this result transmitted reference range: 0.0 - 10.0 GPL. The reference range was not used to interpret this result as normal/abnormal . Anticardiolipin Antibody IgM (test code = 9874583753) See_Comment [Automated message] The system which generated this result transmitted reference range: 0.0 - 10.0 MPL. The reference range was not used to interpret this result as normal/abnormal . Anticardiolipin Antibody IgA (test code = 6500119327) See_Comment [Automated message] The system which generated [...] date (i.e. 4-6 weeks) to confirmpositivity. ?Josue Strange et al. ?J Thromb Haemost 2006; 4: 2210-4 Lab Interpretation (test code = 51423-3) Normal [facility]manANTICARDIOLIPIN [id number] 01:54:42 * Test Item Value Reference Range Interpretation Comments Anticardiolipin Antibody IgG (test code = 3608230167) See_Comment [Automated message] The system which generated this result transmitted reference range: 0.0 - 10.0 GPL. The reference range was not used to interpret this result as normal/abnormal . Anticardiolipin Antibody IgM (test code = 3749166254) See_Comment [Automated message] The system which generated this result transmitted reference range: 0.0 - 10.0 MPL. The reference range was not used to interpret this result as normal/abnormal . Anticardiolipin Antibody IgA (test code = 6565709111) See_Comment [Automated message] The system which generated [...] date (i.e. 4-6 weeks) to confirmpositivity. ?Josue Strange et al. ?J Thromb Haemost 2006; 4: 2210-4 Lab Interpretation (test code = 31879-4) Normal [facility]-DOUBLE STRANDED [id number] 18:47:51* Test Item Value Reference Range Interpretation Comme nts ANTI-DSDNA (test code = 7062722606) See_Comment [Automated message] The system which generated this result transmitted reference range: 0.0 - 4.0 IU/mL. The reference range was not used to interpret this result as normal/abnormal. TAIWO (test code = TAIWO) Negative ? ?< or = 4 IU/mLPositive ? ? ?> or = 10 IU/mLIndetermin ate ?5-9 IU/mL Lab Interpretation (test code = 43599-7) Normal [facility]-SM/[id number] 18:47:51* Test Item Value Reference Range Interpretation Comme nts ANTI-SMRNP (test code = 8360193136) Negative Negative TAIWO (test code = TAIWO) Positive - Antibod y detected.Negative - No antibody detected. Lab Interpretation (test code = 65739-9) Normal [facility]-SCL-[id number] 18:47:51* Test Item Value Reference Range Interpretation Comme nts ANTI-SCL70 (test code = 5616877524) Negative Negative TAIWO (test code = TAIWO) Positive - Antibod y detected.Negative - No antibody detected. Lab Interpretation (test code = 99272-7) Normal [facility] [id number] 18:47:51* Test Item Value Reference Range Interpretation Comme nts ANTI-DSDNA (test code = 0279947416) See_Comment [Automated message] The system which generated this result transmitted reference range: 0.0 - 4.0 IU/mL. The reference range was not used to interpret this result as normal/abnormal. TAIWO (test code = TAIWO) Negative ? ?< or = 4 IU/mLPositive ? ? ?> or = 10 IU/mLIndetermin ate ?5-9 IU/mL Lab Interpretation (test code = 65581-1) Normal [facility]-SM/[id number] 18:47:51* Test Item Value Reference Range Interpretation Comme nts ANTI-SMRNP (test code = 8743812063) Negative Negative TAIWO (test code = TAIWO) Positive - Antibod y detected.Negative - No antibody detected. Lab Interpretation (test code = 36108-8) [facility]-[id number] 18:47:51* Test Item Value Reference Range Interpretation Comme nts ANTI-SCL70 (test code = 2730548384) Negative Negative TAIWO (test code = TAIWO) Positive - Antibod y detected.Negative - No antibody detected. Lab Interpretation (test code = 08764-7) [facility] [id number] 15:40:18* Test Item Value Reference Range Interpretation Comme nts RF (test code = 6633825573) See_Comment [Automated Ad.IQa [employer]] The system which generated this result transmitted reference range: <20 IU/mL. The reference range was not used to interpret this result as normal/abnormal. Lab Interpretation (test code = 86177-4) [facility]ID [id number] 15:40:18* Test Item Value Reference Range Interpretation Comme nts RF (test code = 2198318638) See_Comment [Automated Ad.IQa ge] The system which generated this result transmitted reference range: <20 IU/mL. The reference range was not used to interpret this result as normal/abnormal. Lab Interpretation (test code = 88478-1) Normal [facility]manH[facility] [id number] 07:58:52* Test Item Value Reference Range Interpretation Comme nts HCV Ab (test code = 49402-0) Negative HCV Semi-Quantitative (test code = 88895-1) [facility]manH[facility] [id number] 07:58:52* Test Item Value Reference Range Interpretation Comme nts HCV Ab (test code = 21187-4) Negative HCV Semi-Quantitative (test code = 82938-2) [facility]manFERRITIN [id number] 00:18:08* Test Item Value Reference Range Interpretation Comme nts FERRITIN (test code = 3012032207) 4.3 ng/mL 6-137 L TAIWO (test code = TAIWO) Biotin has been reported to cause a negative bias, interpret results relative to patient's use of biotin. Lab Interpretation (test code = 84576-1) [facility]normal [facility] [id number] 00:18:08* Test Item Value Reference Range Interpretation Comme nts FERRITIN (test code = 0243834304) 4.3 ng/mL 6-137 L TAIWO (test code = TAIWO) Biotin has been reported to cause a negative bias, interpret results relative to patient's use of biotin. Lab Interpretation (test code = 71453-0) [facility]normal [facility]manTHYROID STIMULATING [id number] 00:14:06 * Test Item Value Reference Range Interpretation Comme nts TSH (test code = 1511113238) See_Comment [Automated Ad.IQa ge] The system which generated this result transmitted reference range: 0.45 - 4.70 mIU/L. The reference range was not used to interpret this result as normal/abnormal. Lab Interpretation (test code = 59790-4) Normal [facility]man[facility]YRO[facility] ST[facility]ATING [id number] 00:14:06 * Test Item Value Reference Range Interpretation Comme nts TSH (test code = 1533907623) See_Comment [Automated Ad.IQa ge] The system which generated this result transmitted reference range: 0.45 - 4.70 mIU/L. The reference range was not used to interpret this result as normal/abnormal. Lab Interpretation (test code = 94036-4) Normal [facility]manFREE [id number] 00:00:25* Test Item Value Reference Range Interpretation Comme nts FREE T4 (test code = 3058798919) See_Comment [Automated messa ge] The system which generated this result transmitted reference range: 0.78 - 2.20 ng/dL:. The reference range was not used to interpret this result as normal/abnormal. Lab Interpretation (test code = 38402-6) Normal [facility] [id number] 00:00:25* Test Item Value Reference Range Interpretation Comme nts FREE T4 (test code = 3653260453) See_Comment [Automated messa ge] The system which generated this result transmitted reference range: 0.78 - 2.20 ng/dL:. The reference range was not used to interpret this result as normal/abnormal. Lab Interpretation (test code = 16469-1) Normal [facility] [id number] 00:00:05* Test Item Value Reference Range Interpretation Comme nts FREE T3 (test code = 9074519465) 3.41 pg/mL 2.77-5.27 Lab Interpretation (test cod e = 51282-7) Normal [facility] [id number] 00:00:05* Test Item Value Reference Range Interpretation Comme nts FREE T3 (test code = 0965843808) 3.41 pg/mL 2.77-5.27 Lab Interpretation (test cod e = 51590-3) Normal [facility] IRON BINDING [id number] 23:54:03 * Test Item Value Reference Range Interpretation Comme nts TIBC (test code = 3149249085) 488 ug/dL 250-410 H % FE SAT (test code = 6665939873) 4 % 20-50 L Lab Interpretation (test cod e = 31948-7) Abnormal [facility] IRON BINDING [id number] 23:54:03 * Test Item Value Reference Range Interpretation Comme nts TIBC (test code = 7750557553) 488 ug/dL 250-410 H % FE SAT (test code = 5581572183) 4 % 20-50 L Lab Interpretation (test cod e = 00114-2) Abnormal [place] [id number] 23:42:42* Test Item Value Reference Range Interpretation Comme nts IRON (test code = 4672860917) 20 ug/dL 50-160 L Lab Interpretation (test cod e = 33702-5) [facility]normal [facility]manCREATINE [id number] 23:42:42* Test Item Value Reference Range Interpretation Comme nts CK (test code = 9531329361) 76 U/L 33-194 Lab Interpretation (test cod e = 88420-6) Normal [facility]manIRON2022-09-06 23:42:42* Test Item Value Reference Range Interpretation Comme nts IRON (test code = 5047372954) 20 ug/dL 50-160 L Lab Interpretation (test cod e = 46047-9) Abnormal [facility] [id number] 23:42:42* Test Item Value Reference Range Interpretation Comme nts CK (test code = 3043213263) 76 U/L 33-194 Lab Interpretation (test cod e = 09797-9) Normal [facility] [id number] 22:54:08* Test Item Value Reference Range Interpretation Comme nts ESR (test code = 50224-4) See_Comment H [Automated messa ge] The system which generated this result transmitted reference range: 0 - 20 mm/HR. The reference range was not used to interpret this result as normal/abnormal. Lab Interpretation (test code = 67365-6) Abnormal [facility] [id number] 22:54:08* Test Item Value Reference Range Interpretation Comme nts ESR (test code = 75695-1) See_Comment H [Automated messa ge] The system which generated this result transmitted reference range: 0 - 20 mm/HR. The reference range was not used to interpret this result as normal/abnormal. Lab Interpretation (test code = 19661-6) Abnormal [facility] WITH [id number] 22:35:28* Test Item Value Reference Range Interpretation [...] g/dL 31.6-35.1 L RDW-SD (test code = 09051-5) 41.9 fL 39-49.9 RDW-CV (test code = 788-0) 16.8 % 12-15.5 H PLT (test code = 777-3) See_Comment H [Automated messa ge] The system which generated this result transmitted reference range: 166 - 358 10*3/?L. The reference range was not used to interpret this result as normal/abnormal. MPV (test code = 56873-0) 10.0 fL 9.5-12.9 NRBC/100 WBC (test code = 1498697655) See_Comment [Automated me ssage] The system which generated this result transmitted reference range: 0.0 - 10.0 /100 WBCs. The reference range was not used to interpret this result as normal/abnormal. NRBC x10^3 (test code = 9937388206) See_Comment [Automated messa ge] The system which generated this result transmitted reference range: 10*3/?L. The reference range was not used to interpret this result as normal/abnormal. GRAN MAT (NEUT) % (test code = 770-8) 54.0 % IMM GRAN % (test code = 1115490791) 0.10 % LYMPH % (test code = 736-9) 34.6 % MONO % (test code = 5905-5) 7.8 % EOS % (test code = 713-8) 2.2 % BASO % (test code = 706-2) 1.3 % GRAN MAT x10^3(ANC) (test code = 6134799731) 3.67 10*3/uL 1.88-7.09 IMM GRAN x10^3 (test code = 2441008908) 0-0.06 LYMPH x10^3 (test code = 731-0) 2.35 10*3/uL 1.32-3.29 MONO x10^3 (test code = 742-7) 0.53 10*3/uL 0.33-0.92 EOS x10^3 (test code = 711-2) 0.15 10*3/uL 0.03-0.39 BASO x10^3 (test code = 704-7) 0.09 10*3/uL 0.01-0.07 H Lab Interpretation (test code = 01267-8) Abnormal [facility] WITH [id number] 22:35:28* Test Item Value Reference Range Interpretation [...] g/dL 31.6-35.1 L RDW-SD (test code = 11574-0) 41.9 fL 39-49.9 RDW-CV (test code = 788-0) 16.8 % 12-15.5 H PLT (test code = 777-3) See_Comment H [Automated messa ge] The system which generated this result transmitted reference range: 166 - 358 10*3/?L. The reference range was not used to interpret this result as normal/abnormal. MPV (test code = 13991-4) 10.0 fL 9.5-12.9 NRBC/100 WBC (test code = 6182409222) See_Comment [Automated me ssage] The system which generated this result transmitted reference range: 0.0 - 10.0 /100 WBCs. The reference range was not used to interpret this result as normal/abnormal. NRBC x10^3 (test code = 6164065312) See_Comment [Automated messa ge] The system which generated this result transmitted reference range: 10*3/?L. The reference range was not used to interpret this result as normal/abnormal. GRAN MAT (NEUT) % (test code = 770-8) 54.0 % IMM GRAN % (test code = 7876562731) 0.10 % LYMPH % (test code = 736-9) 34.6 % MONO % (test code = 5905-5) 7.8 % EOS % (test code = 713-8) 2.2 % BASO % (test code = 706-2) 1.3 % GRAN MAT x10^3(ANC) (test code = 4599860287) 3.67 10*3/uL 1.88-7.09 IMM GRAN x10^3 (test code = 5691589160) 0-0.06 LYMPH x10^3 (test code = 731-0) 2.35 10*3/uL 1.32-3.29 MONO x10^3 (test code = 742-7) 0.53 10*3/uL 0.33-0.92 EOS x10^3 (test code = 711-2) 0.15 10*3/uL 0.03-0.39 BASO x10^3 (test code = 704-7) 0.09 10*3/uL 0.01-0.07 H Lab Interpretation (test code = 44245-1) Abnormal [facility] Notes Date/Time Note Provider Source 2024-04-15 18:47:50 Patient reports that she has lower abd cramping since yesterday. States she felt like she was having contractions last week but home tests were negative for preg. States she did blood work at [facility] that says she was positive. States she is [id number]. Eron Charles RN [facility] [employer] 2024-04-15 18:43:00 [facility] Emergency Department Note Patient Name: Chema Corbett Date of : 1980 43 year old female Treatment [facility] Care Physician: PATIENT DOES NOT HAVE A PCP Patient Escorted by: Family [5] Mode of Arrival: Personal means [1] EMS Treatment Prior to ED Arrival: Travel and Exposure Screening: Symptoms Does patient have any of these symptoms?: (not recorded) Exposure Screening Has patient had contact with someone with a communicable disease in the last month?: (not recorded) Diseases exposed to:: (not recorded) Is Patient ?: (not recorded) Exposure Date: (not recorded) Chief Complaint: Chief Complaint Patient presents with Abdominal Pain g26 History of Present Illness: The patient presents from home for evaluation for pelvic cramping ongoing for the past 4 days. She reports her last menstrual period was sometime in February. She is not sure of the exact date. She reports about 2 weeks after her. She had some cramping and bleeding and thinks she may have had a miscarriage. 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 She reports she then had appointment with her tortilla maker who checked a beta hCG and it was 206. When she started with the cramping a day or 2 ago she became concerned and so presents to the ER for evaluation. She reports that she is at 26 para 3-0-22-3. She is not lightheaded or dizzy. No nausea or vomiting. Here for evaluation. Past Medical History/Immunizations: Past Medical History: Diagnosis Date MICHOACANO (acute kidney injury) in hospital and other renal issues Anxiety Asthma GERD (gastroesophageal reflux disease) History of cardiac murmur History of FL (myocardial infarction) History of multiple miscarriages Hypertension, benign Irregular heart beat Kidney stone Migraine Seasonal allergies Allergies: Allergies Allergen Reactions Amlodipine Other - See comments Multiple side effects Dyazide [Triamterene-Hydrochlorothiaz id] Other - See comments Cramping and fatigue Lasix [Furosemide] Other - See comments Cramping whole body Past Social History: Tobacco Use Former; Cigarettes: 01/20/2002 - 01/20/2022; Smoked an average of 0.1 packs/day for 20.0 years Smokeless Tobacco: Never used smokeless tobacco. Alcohol Use Comments: rarely drinks Drug Use Never. Past Surgical History: Past Surgical History: Procedure Laterality Date DILATION/CURETTAGE,DIAGNOSTIC after one of her miscarriages Review of Systems: Review of Systems Constitutional: Negative for chills and fever. Respiratory: Negative for cough and shortness of breath. Cardiovascular: Negative for chest pain. Gastrointestinal: Negative for abdominal pain, nausea and vomiting. Genitourinary: Positive for pelvic pain. Negative for dysuria. Musculoskeletal: Negative for arthralgias, neck pain and neck stiffness. Skin: Negative for wound. Neurological: Negative for dizziness. Psychiatric/Behavioral: Negative for agitation. Endocrine: Negative for goiter. Physical Exam: ED Triage Vitals [04/15/24 1849] Weight 108.4 kg (239 lb) Actual or estimated Height 1.626 m (5' 4") BP (!) 198/131 Pulse 90 Resp 20 Temp 37.2 ?C (99 ?F) Temp source Oral SpO2 100 % Measured on Room air Physical Exam Vitals and nursing note reviewed. Constitutional: Appearance: Normal appearance. She is obese. HENT: Head: Normocephalic and atraumatic. Cardiovascular: Rate and Rhythm: Normal rate. Pulmonary: Effort: Pulmonary effort is normal. No respiratory distress. Abdominal: General: There is no distension. Palpations: Abdomen is soft. There is no mass. Tenderness: There is no abdominal tenderness. There is no guarding or rebound. Hernia: No hernia is present. Musculoskeletal: General: Normal range of motion. Cervical back: Neck supple. Skin: General: Skin is warm. Neurological: General: No focal deficit present. Mental Status: She is alert and oriented to person, place, and time. Radiology: No orders to display Lab Results: Lab Results POCT TEST - Normal Result Value Ref Range POCT PREG Negative On board controls acceptable with C Line Yes POCT PREG LOT # [id number] POCT PREG TEST DATE 2025-05-01 EKG: If EKG completed, see Procedure Note. Orders and Treatments: Orders Placed This Encounter Procedures POCT TEST No orders of the defined types were placed in this encounter. First Provider Eval: ED Events Date/Time Event User Comments 04/15/241846 Medical Screening Begins TRUPTI FRAGA DO -- 04/15/241846 First Provider Evaluation TRUPTI FRAGA DO -- ED COURSE Diagnosis/Impression as of 04/15/242058 Lower abdominal pain Procedures: Procedures MDM: Medical Decision Making The patient presents from home for evaluation for pelvic cramping ongoing for the past 4 days. She reports her last menstrual period was sometime in February. She is not sure of the exact date. She reports about 2 weeks after her. She had some cramping and bleeding and thinks she may have had a miscarriage. 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 She reports she then had appointment with her tortilla maker who checked a beta hCG and it was 206. When she started with the cramping a day or 2 ago she became concerned and so presents to the ER for evaluation. She reports that she is at 26 para 3-0-22-3. She is not lightheaded or dizzy. No nausea or vomiting. The patient was hypertensive here in the ER. She is obese. Her abdomen is soft and nontender. Will check a test here in the ER before proceeding with additional laboratory and imaging studies. Final disposition pending. 2058 -the patient's test here in the ER is negative. The symptoms she is experiencing currently may be related to her menses. She remained stable here in the ER and is okay for discharge home with PCP follow-up. Problems Addressed: Lower abdominal pain: acute illness or injury Amount and/or Complexity of Data Reviewed Labs: ordered. Decision-making details documented in ED Course. Risk OTC drugs. Flowsheet Documentation: Scoring Tools: No data recorded Disposition/Condition: ED Disposition ED Disposition Disch - Home Condition Stable Comment -- Discharge Medications: Patient's Medications START taking these medications No medications on file CONTINUE taking these medications which have NOT CHANGED CARVEDILOL 12.5 MG TABLET Take 1 tablet by mouth in the morning and 1 tablet in the evening. Take with meals. FUROSEMIDE 40 MG TABLET Take 1 tablet by mouth in the morning. IBUPROFEN 600 MG TABLET Take 1 tablet by mouth every 6 (six) hours as needed for Temp > 38.5 C or Pain (scale 4-6). LOSARTAN 100 MG TABLET Take 1 tablet by mouth in the morning. SPIRONOLACTONE 25 MG TABLET Take 1 tablet by mouth in the morning. START taking Modified Medications as Prescribed No medications on file STOP taking these medications No medications on file Follow-up: Electronically signed by: Trupti Fraga DO 04/15/242058 [facility] 2024-03-11 23:13:05 Pt given printed and verbal discharge instructions regarding uterine bleeding, headache, Pt verbalized understanding of instructions, pt awake alert oriented, resp reg unlabored, skin w/d, color appropriate for race, moves all ext well,pt encouraged to follow up with pcp Advised to seek medical attention for new/prolonged/worsening of symptoms, No adverse reaction to meds given in ER noted upon discharge PIV d'cd, dressing to site, catheter in tact. Awake, alert oriented, resp reg unlabored, skin w/d, pt leaving amb with steady gait, in no apparent distress, Rashi Birch RN [facility] 2024-03-11 20:44:33 Pt arrived ambulatory without assist. Pt boyfriend with her, okay to discuss medical care in front of him. Pt c/o fatigue and headache since Sunday with pain getting worse today. [facility] 2024-03-11 20:38:00 Associated Order(s): EKG-12 Lead ROUTINE ONCE Pre-Procedure Diagnose(s): Generalized weakness Post-Procedure Diagnose(s): Generalized weakness [facility] Emergency Department Note Patient Name: Chema Corbett Date of : 1980 43 year old female Treatment Room: Room/bed info not found Primary Care Physician: PATIENT DOES NOT HAVE A PCP Patient Escorted by: Family [5] Mode of Arrival: Personal means [1] EMS Treatment Prior to ED Arrival: Travel and Exposure Screening: Symptoms Does patient have any of these symptoms?: (not recorded) Exposure Screening Has patient had contact with someone with a communicable disease in the last month?: (not recorded) Diseases exposed to:: (not recorded) Is Patient ?: (not recorded) Exposure Date: (not recorded) Chief Complaint: Chief Complaint Patient presents with Fatigue Headache History of Present Illness: HPI Chema Corbett is a 43 year old female presenting with headache and generalized fatigue. Patient reports that she has been having having vaginal bleeding for the past week and it is just starting to lighten up today. Patient reports history of heavy periods but this one was heavier than she's ever had before. Patient reports feeling lightheaded, no vomiting, SOB or chest pain. Patient does report nausea symptoms. Patient reports that the headache and fatigue symptoms have been present since Sunday and getting worse and the vaginal bleeding for the past week. Past Medical History/Immunizations: Past Medical History: Diagnosis Date MICHOACANO (acute kidney injury) in hospital and other renal issues Anxiety Asthma GERD (gastroesophageal reflux disease) History of cardiac murmur History of FL (myocardial infarction) History of multiple miscarriages Hypertension, benign Irregular heart beat Kidney stone Migraine Seasonal allergies Allergies: Allergies Allergen Reactions Amlodipine Other - See comments Multiple side effects Dyazide [Triamterene-Hydrochlorothiaz id] Other - See comments Cramping and fatigue Past Social History: Tobacco Use Former; Cigarettes: 01/20/2002 - 01/20/2022; Smoked an average of 0.1 packs/day for 20.0 years Smokeless Tobacco: Never used smokeless tobacco. Alcohol Use Comments: rarely drinks Drug Use Never. Past Surgical History: Past Surgical History: Procedure Laterality Date DILATION/CURETTAGE,DIAGNOSTIC after one of her miscarriages Review of Systems: Review of Systems Constitutional: Positive for activity change, appetite change and fatigue. HENT: Negative for congestion, facial swelling and rhinorrhea. Eyes: Negative for photophobia and visual disturbance. Respiratory: Negative for apnea, cough, choking, chest tightness, shortness of breath, wheezing and stridor. Cardiovascular: Negative for chest pain, palpitations and leg swelling. Gastrointestinal: Positive for nausea. Negative for abdominal distention, abdominal pain, anal bleeding, blood in stool, constipation, diarrhea, rectal pain and vomiting. Genitourinary: Negative for dysuria. Musculoskeletal: Negative for neck pain. Neurological: Positive for weakness and light-headedness. Negative for dizziness, tremors, seizures, syncope, facial asymmetry, speech difficulty, numbness and headaches. Generalized weakness, lightheadedness , no focal deficits Physical Exam: ED Triage Vitals [03/11/242042] Weight 105.2 kg (232 lb) Actual or estimated Estimated by patient/family report Height 1.626 m (5' 4") BP (!) 174/109 Pulse 80 Resp 18 Temp 37.2 ?C (99 ?F) Temp source Oral SpO2 100 % Measured on Room air Physical Exam Vitals and nursing note reviewed. Constitutional: General: She is not in acute distress. Appearance: She is well-developed. She is not diaphoretic. HENT: Head: Normocephalic and atraumatic. Eyes: General: No scleral icterus. Right eye: No discharge. Left eye: No discharge. Conjunctiva/sclera: Conjunctivae normal. Cardiovascular: Rate and Rhythm: Normal rate and regular rhythm. Heart sounds: Normal heart sounds. No murmur heard. No friction rub. No gallop. Pulmonary: Effort: Pulmonary effort is normal. No respiratory distress. Breath sounds: Normal breath sounds. No wheezing. Chest: Chest wall: No tenderness. Abdominal: General: There is no distension. Palpations: Abdomen is soft. There is no mass. Tenderness: There is no abdominal tenderness. There is no guarding or rebound. Musculoskeletal: Cervical back: Neck supple. Skin: General: Skin is warm and dry. Neurological: Mental Status: She is alert and oriented to person, place, and time. Cranial Nerves: No cranial nerve deficit. Coordination: Coordination normal. Psychiatric: Behavior: Behavior normal. Radiology: No orders to display Lab Results: Lab Results CBC WITH DIFF - Abnormal Result Value Ref Range WBC 8.79 4.30 - 11.10 10*3/?L RBC 4.84 3.93 - 5.25 10*6/?L HGB 12.4 11.6 - 15.0 g/dL HCT 39.1 35.7 - 45.2 % MCV 80.8 80.6 - 95.5 fL MCH 25.6 (*) 25.9 - 32.8 pg MCHC 31.7 31.6 - 35.1 g/dL RDW-SD 43.8 39.0 - 49.9 fL RDW-CV 15.0 12.0 - 15.5 % PLT 308 166 - 358 10*3/?L MPV 10.9 9.5 - 12.9 fL NRBC/100 WBC 0.0 0.0 - 10.0 /100 WBCs NRBC x10 3 <0.01 10*3/?L GRAN MAT (NEUT) % 53.5 % IMM GRAN % 0.50 % LYMPH % 37.2 % MONO % 6.7 % EOS % 1.5 % BASO % 0.6 % GRAN MAT x10 3 (ANC) 4.71 1.88 - 7.09 10*3/uL IMM GRAN x10 3 0.04 0.00 - 0.06 10*3/uL LYMPH x10 3 3.27 1.32 - 3.29 10*3/uL MONO x10 3 0.59 0.33 - 0.92 10*3/uL EOS x10 3 0.13 0.03 - 0.39 10*3/uL BASO x10 3 0.05 0.01 - 0.07 10*3/uL URINALYSIS - Abnormal APPEARANCE Clear Clear COLOR Yellow Yellow PH 5.0 4.8 - 8.0 SP GRAVITY 1.019 1.003 - 1.030 GLU U QUAL Normal Normal BLOOD Negative Negative KETONES Negative Negative PROTEIN Negative Negative UROBILIN Normal Normal BILIRUBIN Negative Negative NITRITE Negative Negative LEUK GA Negative Negative RBC/HPF 2 0 - 3 HPF WBC/HPF 1 0 - 5 HPF BACTERIA Few (*) Negative MUCOUS Slight (*) Negative LPF SQ EPITH 3 HPF HYAL CAST 8 (*) <=2 LPF TROPONIN I - Normal TROPONIN I 0.004 <=0.034 ng/mL COMP. METABOLIC PANEL (65205) NA 137 135 - 145 mmol/L K 3.6 3.5 - 5.0 mmol/L CL 100 98 - 108 mmol/L CO2 TOTAL 28 23 - 31 mmol/L AGAP 9 2 - 16 BUN 10 7 - 23 mg/dL GLUCOSE 100 70 - 110 mg/dL CREATININE 0.76 0.50 - 1.04 mg/dL TOTAL BILI 0.6 0.1 - 1.1 mg/dL CALCIUM 9.3 8.6 - 10.6 mg/dL T PROTEIN 8.1 6.3 - 8.2 g/dL ALBUMIN 4.3 3.5 - 5.0 g/dL ALK PHOS 97 34 - 122 U/L ALTv 34 5 - 35 U/L AST(SGOT) 30 13 - 40 U/L eGFR 99.9 mL/min/1.73m2 TYPE AND SCREEN EKG: If EKG completed, see Procedure Note. Orders and Treatments: Orders Placed This Encounter Procedures Cbc with Diff Comp. Metabolic Panel (77663) Urinalysis Troponin I Type and Screen - ONCE STAT Orders Placed This Encounter Medications NaCl 0.9% (NS) bolus infusion 500 mL metoclopramide HCl (REGLAN) injection 10 mg diphenhydrAMINE (BENADRYL) injection 25 mg acetaminophen (TYLENOL) tablet 1,000 mg First Provider Eval: ED Events Date/Time Event User Comments 03/11/242040 Medical Screening Begins WES ABURTO MD -- 03/11/242040 First Provider Evaluation WES ABURTO MD -- ED COURSE Diagnosis/Impression as of 03/11/247 Generalized weakness Vaginal bleeding Headache, unspecified headache type Procedures: EKG-12 Lead ROUTINE ONCE Date/Time: 03/11/2024 10:32 PM Performed by: Wes Aburto MD Authorized by: Wes Aburto MD ECG interpreted by ED Physician in the absence of a manager pricing: yes Rate: ECG rate: 74 ECG rate assessment: normal Rhythm: Rhythm: sinus rhythm Ectopy: Ectopy: none QRS: QRS axis: Normal QRS intervals: Normal QRS conduction: normal ST segments: ST segments: Non-specific T waves: T waves: normal MDM: Medical Decision Making Chema Corbett is a 43 year old female presenting with generalized weakness, vaginal bleeding (now stopping after heavy bleeding yesterday) and headache. Patient's labs reviewed, hgb within normal limits. Patient's headache improved with headache cocktail and fluids. Plan for discharge home with close PCP and bag printer follow up. Patient advised to return to the ER for worsening symptoms. Problems Addressed: Generalized weakness: acute illness or injury Headache, unspecified headache type: acute illness or injury Vaginal bleeding: acute illness or injury Amount and/or Complexity of Data Reviewed Labs: ordered. Risk OTC drugs. Prescription drug management. Flowsheet Documentation: Scoring Tools: No data recorded Disposition/Condition: ED Disposition ED Disposition Disch - Home Condition Stable Comment -- Discharge Medications: Patient's Medications START taking these medications No medications on file CONTINUE taking these medications which have NOT CHANGED CARVEDILOL 12.5 MG TABLET Take 1 tablet by mouth in the morning and 1 tablet in the evening. Take with meals. FUROSEMIDE 40 MG TABLET Take 1 tablet by mouth in the morning. IBUPROFEN 600 MG TABLET Take 1 tablet by mouth every 6 (six) hours as needed for Temp > 38.5 C or Pain (scale 4-6). LOSARTAN 100 MG TABLET Take 1 tablet by mouth in the morning. SPIRONOLACTONE 25 MG TABLET Take 1 tablet by mouth in the morning. START taking Modified Medications as Prescribed No medications on file STOP taking these medications No medications on file Follow-up: Electronically signed by: Wes Aburto MD 03/11/24 2310 [facility] 2023-10-02 15:26:34 Medical records request received via fax from [facility] and faxed to [place] [facility]. Request scanned into chart along with fax confirmation. Keri Hinson MA [facility] 2023-08-04 21:15:00 Pt given printed and verbal discharge instructions regarding sinusitis, pharyngitis, & sore throats, encouraged hydration. Prescriptions provided. Discussed antibiotic therapy and to take until all completed unless adverse reaction occurs - if occurs, discontinue medication and follow up with pcp/seek medical attention Discussed Tylenol # 3 side affects and to avoid driving/operating machinery/or engaging in activities requiring alertness while taking. Pt verbalized understanding of instructions, pt awake alert oriented, resp reg unlabored, skin w/d, color appropriate for race, moves all ext well,pt encouraged to follow up with pcp. Advised to seek medical attention for new/prolonged/worsening of symptoms. No adverse reaction to meds given in ER noted upon discharge. Awake, alert oriented, resp reg unlabored, skin w/d, pt leaving amb with steady gait, accompanied by spouse, & in no apparent distress. OPONICS WORKER Kylee Fraga RN [facility] 2023-08-04 19:17:06 Pt to ed with family. Vss. Alert and ambulatory. C/o sore throat and fever with hx of strep. Flu positive this past week. OPONICS WORKER Richa Snowden RN [facility] 2023-08-04 19:03:00 [facility] Emergency Department Note Patient Name: Chema Corbett Date of : 1980 42 year old female Treatment Room: [place] [address] Primary Care Physician: PATIENT DOES NOT HAVE A PCP Patient Escorted by: Family [5] Mode of Arrival: Personal means [1] EMS Treatment Prior to ED Arrival: ACID PUMPER treatment: None Travel and Exposure Screening: Symptoms Does patient have any of these symptoms?: (not recorded) Exposure Screening Has patient had contact with someone with a communicable disease in the last month?: (not recorded) Diseases exposed to:: (not recorded) Is Patient ?: (not recorded) Exposure Date: (not recorded) Chief Complaint: Chief Complaint Patient presents with Fever Sore Throat History of Present Illness: 42 y.o. female with Lupus, no sinus congestion and sore throat x 1 week. Past Medical History/Immunizations: Past Medical History: Diagnosis Date MICHOACANO (acute kidney injury) in hospital and other renal issues Anxiety Asthma GERD (gastroesophageal reflux disease) History of cardiac murmur History of FL (myocardial infarction) History of multiple miscarriages Hypertension, benign Irregular heart beat Kidney stone Migraine Seasonal allergies Tetanus received in last 5 years: Unknown Childhood immunizations: Up-to-date Allergies: Allergies Allergen Reactions Amlodipine Other - See comments Multiple side effects Dyazide [Triamterene-Hydrochlorothiaz id] Other - See comments Cramping and fatigue Past Social History: Tobacco Use Former; Cigarettes: Quit 01/20/2022; 0.10 packs/day for 20.00 years Smokeless Tobacco: Never used smokeless tobacco. Alcohol Use Comments: rarely drinks Drug Use Never. Past Surgical History: Past Surgical History: Procedure Laterality Date DILATION/CURETTAGE,DIAGNOSTI C after one of her miscarriages Review of Systems: Review of Systems Constitutional: Positive for chills, fatigue and fever. HENT: Positive for congestion, postnasal drip, rhinorrhea and sinus pressure. Eyes: Negative. Respiratory: Positive for cough. Cardiovascular: Negative. Gastrointestinal: Negative. Genitourinary: Negative. Musculoskeletal: Positive for myalgias. Skin: Negative. Neurological: Positive for light-headedness. Psychiatric/Behavioral: Negative. Endocrine: Endocrine negative Physical Exam: ED Triage Vitals [08/04/231917] Weight 104.3 kg (230 lb) Actual or estimated Actual Height 1.626 m (5' 4") BP (!) 167/124 Pulse 95 Resp 20 Temp 37.6 ?C (99.7 ?F) Temp source Oral SpO2 97 % Measured on Room air Physical Exam Vitals and nursing note reviewed. Constitutional: General: She is not in acute distress. Appearance: Normal appearance. She is not ill-appearing, toxic-appearing or diaphoretic. HENT: Head: Normocephalic and atraumatic. Right Ear: Tympanic membrane normal. Left Ear: Tympanic membrane normal. Nose: Congestion and rhinorrhea present. Mouth/Throat: Mouth: Mucous membranes are moist. Pharynx: Posterior oropharyngeal erythema present. No oropharyngeal exudate. Eyes: Pupils: Pupils are equal, round, and reactive to light. Cardiovascular: Rate and Rhythm: Normal rate. Pulses: Normal pulses. Pulmonary: Effort: Pulmonary effort is normal. No respiratory distress. Breath sounds: No stridor. Rhonchi present. Abdominal: Palpations: Abdomen is soft. Musculoskeletal: General: Normal range of motion. Skin: General: Skin is warm. Capillary Refill: Capillary refill takes less than 2 seconds. Neurological: General: No focal deficit present. Mental Status: She is alert and oriented to person, place, and time. Psychiatric: Mood and Affect: Mood normal. Radiology: No orders to display Lab Results: Lab Results RAPID STREP SCREEN FOR GROUP A - Normal Result Value Ref Range Molecular Strep Negative Negative POCT RAPID STREP SCREEN FOR GROUP A THROAT CULTURE EKG: If EKG completed, see Procedure Note. Orders and Treatments: Orders Placed This Encounter Procedures POCT Rapid Strep Screen For Group A Rapid Strep Screen For Group A Throat Culture Orders Placed This Encounter Medications ibuprofen (IBU) tablet 600 mg HYDROcodone-acetaminophen (NORCO) 10-325 mg tablet 1 tablet ondansetron (ZOFRAN-ODT) disintegrating tablet 4 mg dexAMETHasone (DECADRON) tablet 6 mg First Provider Eval: ED Events None ED COURSE Diagnosis/Impression as of 08/04/232055 Sore throat Acute sinusitis, recurrence not specified, unspecified location Procedures: Procedures MDM: Medical Decision Making Amount and/or Complexity of Data Reviewed Labs: ordered. Risk Prescription drug management. Flowsheet Documentation: Scoring Tools: No data recorded A) Sinusitis, Bronchitis Disposition/Condition: Omnicef, Prednisone, Tylenol #3 , hydration, eR warnings/. ED Disposition None Discharge Medications: Patient's Medications START taking these medications No medications on file CONTINUE taking these medications which have NOT CHANGED CARVEDILOL 12.5 MG TABLET Take 1 tablet by mouth in the morning and 1 tablet in the evening. Take with meals. FUROSEMIDE 40 MG TABLET Take 1 tablet by mouth in the morning. IBUPROFEN 600 MG TABLET Take 1 tablet by mouth every 6 (six) hours as needed for Temp > 38.5 C or Pain (scale 4-6). LOSARTAN 100 MG TABLET Take 1 tablet by mouth in the morning. SPIRONOLACTONE 25 MG TABLET Take 1 tablet by mouth in the morning. START taking Modified Medications as Prescribed No medications on file STOP taking these medications No medications on file Follow-up: PCP Electronically signed by: Jomar Moyer MD 08/04/232053 [facility] 2023-08-01 23:28:06 Pt discharged with diagnosis of acute febrile illness, exposure to influenza, and uncontrolled HTN. Printed and verbal instructions reviewed with and given to patient. Pt verbalized understanding of teaching and recommended follow-up. Denies questions or concerns at this time. Pt ambulatory at discharge. Appears in no apparent distress. No ataxia noted. Accompanied by daughter. OPONICS WORKER Tonia Bingham RN [facility] 2023-08-01 20:24:41 Viral symptoms with fever, body aches, cough and generalized malaise since yesterday. Has been taking tylenol/advil at home without relief. Hypertensive in triage - not compliant with medications. [facility] - currently on it. OPONICS WORKER Shanna Gama RN [facility] 2023-03-12 22:56:19 Formatting of this n ote might be different from the original. Pt discharged with diagnosis of dental abscess, fever, facial pain, HTN, and anxiety. Printed and verbal instructions reviewed with and given to patient. Prescriptions given x 1. Pt verbalized understanding of teaching, medication, and recommended follow-up. Denies questions or concerns at this time. Pt ambulatory at discharge. Appears in no apparent distress. No ataxia noted. Accompanied by . Tonia Bingham RN [facility] 2023-03-12 18:56:06 Formatting of this n ote might be different from the original. Pt arrived ambulatory after being sent over from urgent care d/t her HTN. Pt reports dental abscess and high blood pressure. Pt felt the abscess pop today. Pt has not been taking her BP meds since December. Pt reports having 2x heart attacks in 2019 but d/t no insurance the hospital just gave her BP meds and sent her home. Dacia York RN [facility]
[2024-05-20 20:05] LABS: Absolute Basophils 0.1 K/uL (0-0.5); Absolute Eosinophils 0.2 K/uL (0-0.5); Absolute Lymphocytes (CBC) 3.6 K/uL (0.7-4.9); Absolute Monocytes 0.6 K/uL (0.1-1.3); Absolute Neutrophil 6.5 K/uL (1.8-8.0); Basophils % 0.6 % (0-1.3); Eosinophils % 1.5 % (0-4.4); Hematocrit 34.4 % (36.0-45.0); Hemoglobin 11.2 g/dL (12.0-15.0); Lymphocytes % 32.7 % (15.3-44.8); MCH 25.6 pg (27.0-35.0); MCHC 32.6 g/dL (32.0-36.0); MCV 78.6 fL (80-100); MPV 8.7 fL (7.6-11.3); Monocytes % 5.9 % (3.3-12.3); Neutrophils % 59.3 % (41.7-73.7); Platelets 298 thou/uL (152-406); RBC Red Blood Cell Count 4.38 M/uL (3.86-4.86); Red Cell Distribution Width 16.3 % (12.1-15.2)
[2024-05-20 20:29] LABS: ALT/SGPT 26 U/L (13-56); AST/SGOT 13 U/L (15-37); Albumin 3.3 g/dL (3.4-5.0); Albumin/Globulin Ratio 0.8 (1.1-1.8); Alkaline Phosphatase 84 U/L (45-117); Anion Gap 6.9 mEq/L (5.0-15.0); BUN Blood Urea Nitrogen 10 mg/dL (7-18); Bicarbonate 24 mEq/L (21-32); Bilirubin Total 0.2 mg/dL (0.2-1.0); Globulin 4.1 g/dL (2.3-3.5); Glomerular Filtration Rate 97 ml/min (=/>90); Glucose Level 97 mg/dL (74-106); Magnesium 2.2 mg/dL (1.6-2.4); NT PRO-BNP 94 pg/mL (<125); Potassium 3.9 mEq/L (3.5-5.1); Protein, Total 7.4 g/dL (6.4-8.2); Sodium Level 137 mEq/L (136-145); Troponin High Sensitivity 9.1 pg/mL (<58.9)
--- NOTE | 2024-05-20 20:33 | RAD REPORT ---
EXAMINATION: ONE VIEW CHEST XR CLINICAL INDICATION: Female, 43 years old.,DYSPNEA TECHNIQUE: Frontal chest projection is submitted. Examination is limited by patient positioning and t echnique. COMPARISON: 11/03/2023. FINDINGS: The lungs are well inflated and clear. No pneumothorax or sizable effusion. The heart is normal in s ize. Mediastinal contours are unremarkable. IMPRESSION: No acute intrathoracic abnormalities.
[2024-05-20 20:55] LABS: Bilirubin Direct < 0.2 mg/dL (0-0.2)
--- NOTE | 2024-05-20 21:38 | RAD REPORT ---
EXAM: CT CHEST, ABDOMEN AND PELVIS WITHOUT CONTRAST CLINICAL INDICATION: Female, 43 years old. [facility] MAIN abd pain upper;Chest pain Bed Name: 14 TECHNIQUE: CT chest, abdomen and pelvis was performed, without IV contrast, as per department protoco l. Axial, sagittal and coronal reconstructions were obtained. One or more of the following dose reduction techniques were used: Automated exposure control, adjustment of the mA and/or kV according to the patient size, and/or iterative reconstruction. Unless otherwise specified, incidental findings do not require dedicated imaging follow-up. COMPARISON: 04/01/2024. FINDINGS: The lack of intravenous contrast limits the sensitivity of this exam for evaluation of solid visceral organs, vascular structures, and retroperitoneum. Chest: LOWER NECK/CHEST WALL: Visualized thyroid gland and soft tissues are normal. LUNGS AND AIRWAYS: Airways are clear. No evidence of airspace or interstitial process. No nodules. PLEURA: No pleural effusion. No pneumothorax. Hemidiaphragms are normally positioned. MEDIASTINUM AND LYMPH NODES: No mediastinal mass or fluid collection. Normal size mediastinal, hilar, and axillary lymph nodes. THORACIC AORTA: Normal caliber and configuration. PULMONARY ARTERIES: Normal caliber. HEART: Unremarkable. Abdomen/Pelvis LIVER: Normal in size and contour. Diffuse parenchymal hyperechogenicity suggesting steatosis. No foc al lesion. GALLBLADDER/BILE DUCTS: No biliary ductal dilatation. PANCREAS: No mass, ductal dilation, or janice-pancreatic fluid. SPLEEN: Normal size. No focal lesion. ADRENALS: Normal; no mass. KIDNEYS AND URETERS: Normal size and contour. No hydronephrosis. 3 mL right renal interpolar nonobstr ucting calculus. GASTROINTESTINAL TRACT: Stomach is non-dilated. Small bowel has normal course and caliber. No colonic wall thickening or pericolonic inflammatory changes. PERITONEUM: No free fluid. LYMPH NODES: No lymphadenopathy. ABDOMINAL AORTA AND OTHER VESSELS: Normal caliber aorta and IVC. URINARY BLADDER: Normal contour. REPRODUCTIVE ORGANS: No pathologic process. MUSCULOSKELETAL: No acute or suspicious osseous abnormality. ADDITIONAL FINDINGS: None IMPRESSION: Right renal interpolar 3 mm nonobstructing calculus. Diffuse hepatic parenchymal hyperechogenicity suggesting loosening. No other acute or significant abnormalities in the chest, abdomen, or pelvis.
--- NOTE | 2024-05-20 21:50 | ER ---
Nurse's Notes [facility] Name: Yas Corbett Age: 43 yrs Sex: Female : 1980 Arrival Date: 05/20/2024 Time: 18:11 Bed 14 Private MD: Gerald Farrell V Diagnosis: Dyspnea, unspecified Presentation: 05/20 19:08 Chief complaint: Patient states: I have had shortness of rbeath since this morning, bm8 taking shallow breaths. Coronavirus screen: At this time, the client does not indicate any symptoms associated with coronavirus-19. Ebola Screen: Patient negative for fever greater than or equal to 101.5 degrees Fahrenheit, and additional compatible Ebola Virus Disease symptoms Patient denies exposure to infectious person. Patient denies travel to an Ebola-affected area in the 21 days before illness onset. No symptoms or risks identified at this time. Initial Sepsis Screen: Does the patient meet any 2 criteria? No. Patient's initial sepsis screen is negative. Does the patient have a suspected source of infection? No. Patient's initial sepsis screen is negative. Risk Assessment: Do you want to hurt yourself or someone else? Patient reports no desire to harm self or others. Onset of symptoms was May 20, 2024 at 08:00. 19:08 Method Of Arrival: Ambulatory bm8 19:08 Acuity: CRUZ 3 bm8 Triage Assessment: 19:09 General: Appears in no apparent distress. uncomfortable, Behavior is calm, cooperative, bm8 appropriate for age. Pain: Complains of pain in anterior aspect of left upper chest and left breast Pain currently is 6 out of 10 on a pain scale. EENT: No deficits noted. No signs and/or symptoms were reported regarding the EENT system. Neuro: No deficits noted. Level of Consciousness is awake, alert, obeys commands, Oriented to person, place, time, situation, Appropriate for age. Cardiovascular: Reports chest pain, lightheadedness, shortness of breath, Heart tones S1 S2 present Capillary refill < 3 seconds in bilateral fingers Patient's skin is warm and dry. Respiratory: Reports shortness of breath at rest air hunger Breath sounds are clear bilaterally. Onset: The symptoms/episode began/occurred this morning, the patient has mild shortness of breath. 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 - Infectious Disease History:: Denies. - Social history:: Smoking status: Patient reports the use of cigarette tobacco products. Screenin:20 [facility] ED Fall Risk Assessment (Adult) History of falling in the last 3 months, rg5 including since admission No falls in past 3 months (0 pts) Confusion or Disorientation No (0 pts) Intoxicated or Sedated No (0 pts) Impaired Gait No (0 pts) Mobility Assist Device Used Yes (1 pt) Altered Elimination No (0 pt) Score/Fall Risk Level 0 - 2 = Low Risk Oriented to surroundings, Maintained a safe environment, Hourly rounding (assess needs \T\ fall precautionary measures) done. Abuse screen: Denies threats or abuse. Nutritional screening: No deficits noted. Tuberculosis screening: No symptoms or risk factors identified. Assessment: 19:20 General: Appears in no apparent distress. comfortable, Behavior is calm, cooperative, rg5 appropriate for age. 19:20 Pain: Complains of pain in chest and abdomen Pain radiates to abdomen Pain currently is rg5 7 out of 10 on a pain scale. Quality of pain is described as aching, Pain began 4 hours ago. Is intermittent. Neuro: Level of Consciousness is awake, alert, obeys commands, Oriented to person, place, time. Cardiovascular: Reports chest pain, shortness of breath. Cardiovascular: Rhythm is sinus rhythm. Respiratory: Reports shortness of breath Airway is patent Trachea midline Respiratory effort is even, unlabored, Respiratory pattern is regular, symmetrical, Breath sounds are clear bilaterally. GI: Bowel sounds present X 4 quads. Abd is soft and non tender. : No signs and/or symptoms were reported regarding the genitourinary system. EENT: No deficits noted. Derm: Skin is intact, Skin is dry, Skin is normal. Musculoskeletal: Circulation, motion, and sensation intact. Range of motion: intact in all extremities. Vital Signs: 19:08 BP 178 / 109; Pulse 67; Resp 18; Temp 98.5; Pulse Ox 100% ; Weight 107.95 kg; Height 5 bm8 ft. 4 in. ; Pain 6/10; 19:15 BP 137 / 93; Pulse 66; Resp 17; Pulse Ox 100% ; rg5 20:30 BP 147 / 87; Pulse 68; Resp 18; Pulse Ox 99% on R/A; Pain 6/10; rg5 21:45 BP 138 / 88; Pulse 69; Resp 17; Pulse Ox 99% on R/A; rg5 19:08 Body Mass Index 40.85 (107.95 kg, 162.56 cm) bm8 19:08 Pain Scale: Adult bm8 20:30 Pain Scale: Adult rg5 ED Course: 18:12 Patient arrived in ED. as 18:12 Gerald Farrell MD is Private Physician. as 18:33 Alicia Scales MD is Attending Physician. sp3 19:09 Triage completed. bm8 19:09 Arm band placed on right wrist. bm8 19:15 Dale Leon, RN is Primary Nurse. rg5 19:20 Patient has correct armband on for positive identification. Bed in low position. Call rg5 light in reach. Side rails up X 1. Provided Education on: POST ER CARE. 20:03 Attending Physician role handed off by Alicia Scales MD ec2 20:03 Shun Moraes MD is Attending Physician. ec2 20:06 XRAY Chest (1 view) In Process Unspecified. EDMS 20:39 CT Chest Abdomen Pelvis W/O Contrast In Process Unspecified. EDMS 22:50 No provider procedures requiring assistance completed. IV discontinued. rg5 Administered Medications: 22:25 Drug: Ketorolac IM 30 mg IM once Route: IM; Site: left gluteus; rg5 22:33 Follow up: Response: No adverse reaction rg5 Medication: 19:20 VIS not applicable for this client. rg5 Outcome: 21:49 Discharge ordered by . ec2 22:50 Discharged to home ambulatory, rg5 22:50 Condition: stable 22:50 Discharge instructions given to patient, Instructed on discharge instructions, follow up and referral plans. Demonstrated understanding of instructions, follow-up care, Prescriptions given X 1, 22:51 Patient left the ED. rg5 Signatures: Dispatcher [employer] EDMS Shaunna Alexander as Alicia Scales MD MD sp3 Shun Moraes MD MD ec2 Tyler Darnell, RN RN bm8 Dale Leon, RN RN rg5
--- NOTE | 2024-05-20 21:50 | EDPHYS ---
Physician Documentation [facility] Name: Yas Corbett Age: 43 yrs Sex: Female : 1980 Arrival Date: 05/20/2024 Time: 18:11 Bed 14 Private MD: Gerald Farrell V ED Physician Shun Moraes HPI: 05/20 19:41 This 43 yrs old Female presents to ER via Ambulatory with complaints of sp3 Shortness Of Breath. 19:41 43-year-old female with history of hypertension, myocardial infarction presents to the 3 ED with chief complaint shortness of breath, chest pain and upper abdominal pain. Symptoms been going on for the last 2 days patient denies any fever, cough, headache, neck pain, lower abdominal pain, vomiting, diarrhea, flank pain, syncope, near syncope, known sick contacts, travel history, prior DVT or PE, or any other signs or symptoms on ROS at this time.. 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 - Infectious Disease History:: Denies. - Social history:: Smoking status: Patient reports the use of cigarette tobacco products. ROS: 19:41 Constitutional: Negative for fever, chills, and weight loss, Eyes: Negative for injury, sp3 pain, redness, and discharge, ENT: Negative for injury, pain, and discharge, Neck: Negative for injury, pain, and swelling, Back: Negative for injury and pain, MS/Extremity: Negative for injury and deformity, Skin: Negative for injury, rash, and discoloration, Neuro: Negative for headache, weakness, numbness, tingling, and seizure, Psych: Negative for depression, anxiety, suicide ideation, homicidal ideation, and hallucinations, Allergy/Immunology: Negative for hives, rash, and allergies, Endocrine: Negative for neck swelling, polydipsia, polyuria, polyphagia, and marked weight changes, Hematologic/Lymphatic: Negative for swollen nodes, abnormal bleeding, and unusual bruising, 19:41 All other systems are negative, Exam: 19:42 Constitutional: This is a well developed, well nourished patient who is awake, alert, sp3 and in no acute distress. Head/Face: Normocephalic, atraumatic. Eyes: Pupils equal round and reactive to light, extra-ocular motions intact. Lids and lashes normal. Conjunctiva and sclera are non-icteric and not injected. Cornea within normal limits. Periorbital areas with no swelling, redness, or edema. ENT: Nares patent. No nasal discharge, no septal abnormalities noted. External auditory canals are clear. Oropharynx with no redness, swelling, or masses, exudates, or evidence of obstruction, uvula midline. Mucous membranes moist. Neck: Trachea midline, no thyromegaly or masses palpated, and no cervical lymphadenopathy. Supple, full range of motion without nuchal rigidity, or vertebral point tenderness. No Meningismus. Chest/axilla: Normal chest wall appearance and motion. Nontender with no deformity. No lesions are appreciated. Cardiovascular: Regular rate and rhythm with a normal S1 and S2. No gallops, murmurs, or rubs. Normal PMI, no JVD. No pulse deficits. Respiratory: Lungs have equal breath sounds bilaterally, clear to auscultation and percussion. No rales, rhonchi or wheezes noted. No increased work of breathing, no retractions or nasal flaring. Back: No spinal tenderness. No costovertebral tenderness. Full range of motion. Skin: Warm, dry with normal turgor. Normal color with no rashes, no lesions, and no evidence of cellulitis. MS/ Extremity: Pulses equal, no cyanosis. Neurovascular intact. Full, normal range of motion. Neuro: Awake and alert, GCS 15, oriented to person, place, time, and situation. Cranial nerves II-XII grossly intact. Motor strength 5/5 in all extremities. Sensory grossly intact. Cerebellar exam normal. Normal gait. Psych: Awake, alert, with orientation to person, place and time. Behavior, mood, and affect are within normal limits. 19:42 Abdomen/GI: Mild left upper quadrant tenderness to palpation without peritoneal signs, rebound or guarding., 19:42 ECG was reviewed by the Attending Physician. EKG demonstrates normal sinus rhythm at 67 sp3 bpm with normal intervals, normal QRS, normal axis, nonspecific diffuse ST's ST changes without evidence of acute ischemia. Vital Signs: 19:08 BP 178 / 109; Pulse 67; Resp 18; Temp 98.5; Pulse Ox 100% ; Weight 107.95 kg; Height 5 bm8 ft. 4 in. ; Pain 6/10; 19:15 BP 137 / 93; Pulse 66; Resp 17; Pulse Ox 100% ; rg5 20:30 BP 147 / 87; Pulse 68; Resp 18; Pulse Ox 99% on R/A; Pain 6/10; rg5 21:45 BP 138 / 88; Pulse 69; Resp 17; Pulse Ox 99% on R/A; rg5 19:08 Body Mass Index 40.85 (107.95 kg, 162.56 cm) bm8 19:08 Pain Scale: Adult bm8 20:30 Pain Scale: Adult rg5 MDM: 19:09 Medical Screening Exam initiated sp3 19:42 Data reviewed: vital signs, nurses notes. ED course: 43-year-old female with chest and sp3 abdominal pain. Differential diagnosis includes acute coronary syndrome, vascular pathology, intestinal and gastric pathology, among others. Workup will include CT scan of the chest abdomen pelvis, laboratory values, EKG, UA and general supportive care and pain medication as needed. Disposition pending workup and patient course. 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 21:06 ED course: Metabolic profile and LFTs are nonactionable, troponin within normal ranges, ec2 CBC shows reassuring blood counts, slight anemia appreciated, chest x-ray shows no acute intrathoracic process. Pending CT scan of the chest and abdomen pelvis. . 05/20 19:07 Order name: Basic Metabolic Panel; Complete Time: 21:05 sp3 05/20 19:07 Order name: CBC with Diff; Complete Time: 20:47 sp3 05/20 19:07 Order name: LFT's; Complete Time: 21: sp3 05/20 19:07 Order name: Magnesium; Complete Time: 21: sp3 05/20 19:07 Order name: NT PRO-BNP; Complete Time: 21:05 sp3 05/20 19:07 Order name: Troponin HS; Complete Time: 21: sp3 05/20 19:07 Order name: XRAY Chest (1 view); Complete Time: 20:47 sp3 05/20 19:41 Order name: CT Chest Abdomen Pelvis W/O Contrast; Complete Time: 21:44 sp3 05/20 19:07 Order name: EKG; Complete Time: 19:07 sp3 05/20 19:07 Order name: Cardiac monitoring; Complete Time: 19:29 sp3 05/20 19:07 Order name: EKG - Nurse/Tech; Complete Time: 19:29 sp3 05/20 19:07 Order name: Labs collected and sent; Complete Time: 20: sp3 05/20 19:07 Order name: O2 Per Protocol; Complete Time: 20: sp3 05/20 19:07 Order name: O2 Sat Monitoring; Complete Time: 20: sp3 Administered Medications: 22:25 Drug: Ketorolac IM 30 mg IM once Route: IM; Site: left gluteus; rg5 22:33 Follow up: Response: No adverse reaction rg5 Disposition Summary: 05/20/24 21:49 Discharge Ordered Notes: Location: Home ec2 Condition: Stable ec2 Diagnosis - Dyspnea, unspecified ec2 Followup: ec2 - With: Private Physician - When: - Reason: Re-evaluation by your physician Discharge Instructions: - Discharge Summary Sheet ec2 - Shortness of Breath, Adult, [id number] ec2 Forms: - Medication Reconciliation Form ec2 - Antibiotic Education ec2 - Prescription Opioid Use ec2 - Patient Portal Instructions ec2 - Leadership Thank You Letter ec2 Prescriptions: - albuterol sulfate 90 mcg/actuation Inhalation HFA Aerosol Inhaler - inhale 4 puff INHALATION route every 6 hours as needed for shortness of breath ec2 or wheezing; 1 unit; Refills: 0, Product Selection Permitted Signatures: Dispatcher [employer] Alicia Santos MD MD sp3 Shun Moraes MD MD ec2 Tyler Darnell RN RN bm8 Dale Leon RN RN rg5 Corrections: (The following items were deleted from the chart) 22:33 19:07 IV Saline Lock ordered. sp3 rg5
[2024-05-20] MEDS ORDERED: KETOROLAC 30 MG/ML INJ ONE (22:27)
[2024-05-20 23:27] VITALS: TEMP 98.5
[2024-05-20 23:30] VITALS: O2SAT 99
[2024-05-20 23:31] VITALS: BP 138/88
--- NOTE | 2024-05-21 14:48 | EKG ---
Test Date: 2024-05-20 Test Time: 19:27:32 Boxing Inspector: RONNY MEASUREMENT RESULTS: Intervals: Rate: 67 MA: 158 QRSD: 92 QT: 420 QTc: 443 [place]: P: 41 MA: 158 QRS: 51 T: 59 INTERPRETIVE STATEMENTS: Normal sinus rhythm Cannot rule out Anterior infarct, age undetermined Abnormal ECG Compared to ECG 11/04/2023 01:06:01 Myocardial infarct finding now present ST (T wave) deviation no longer present Possible ischemia no longer present Electronically Signed On 05-21-24 14:45:51 CDT by Amando Rodriguez
== END 2024-05-20 22:51 | disposition home or self-care (01) ==
LOC: ER 18:11
DX: R06.00 Dyspnea, unspecified (principal); I10 Essential (primary) hypertension; I25.2 Old myocardial infarction; Z72.0 Tobacco use
CPT/HCPCS: 36415; 71045; 71250; 74176; 80048; 80076; 83735; 83880; 84484; 85025; 93005; 96372; 99284

== ENCOUNTER 2024-08-02 11:50 | Emergency (ER) | payer OTHER, SELFPAY ==
[2024-08-02] MEDS ORDERED: NA CHLORIDE 0.9% 1,000 ML ONE (17:03)
[2024-08-02 17:04] LABS: SARS-CoV-2 Antigen CONTROL BLUE LINE VIS/BG OK; SARS-CoV-2 Antigen Rapid Res Negative (Negative)
[2024-08-02 18:00] LABS: Absolute Basophils 0.1 K/uL (0-0.5); Absolute Lymphocytes (CBC) 2.1 K/uL (0.7-4.9); Absolute Monocytes 1.1 K/uL (0.1-1.3); Absolute Neutrophil 12.9 K/uL (1.8-8.0); Basophils % 0.5 % (0-1.3); Eosinophils % 0.2 % (0-4.4); Hematocrit 38.1 % (36.0-45.0); Hemoglobin 12.2 g/dL (12.0-15.0); MCH 23.7 pg (27.0-35.0); MCHC 31.9 g/dL (32.0-36.0); MCV 74.1 fL (80-100); MPV 8.7 fL (7.6-11.3); Monocytes % 6.8 % (3.3-12.3); Neutrophils % 79.5 % (41.7-73.7); Platelets 354 thou/uL (152-406); RBC Red Blood Cell Count 5.15 M/uL (3.86-4.86); Red Cell Distribution Width 16.7 % (12.1-15.2)
--- NOTE | 2024-08-02 18:23 | RAD REPORT ---
EXAMINATION: US Abdomen Exam Limited CLINICAL HISTORY: [facility] MAIN Y vomiting Bed Name: 20 COMPARISON: None. TECHNIQUE: Limited upper abdominal grayscale and color flow sonographic images. FINDINGS: Gallbladder: Normal. No gallstones, wall thickening, or pericholecystic fluid. Bile ducts: No intrahepatic or extrahepatic biliary dilatation. Common bile duct measures 3 mm. Liver: Visualized portions of the liver demonstrate diffuse parenchymal echogenicity suggesting steat osis. Fluid: No ascites. IMPRESSION: No abnormalities of the gallbladder ultrasound. Incidentally noted diffuse hepatic steatosis.
[2024-08-02 18:28] LABS: Albumin 3.4 g/dL (3.4-5.0); Albumin/Globulin Ratio 0.8 (1.1-1.8); Anion Gap 10.9 mEq/L (5.0-15.0); Bilirubin Total 0.5 mg/dL (0.2-1.0); Globulin 4.3 g/dL (2.3-3.5); Potassium 3.9 mEq/L (3.5-5.1); Protein, Total 7.7 g/dL (6.4-8.2)
[2024-08-02 18:30] LABS: Specific Gravity 1.022 (1.005-1.030); Sqamous Epithelial <5 /HPF (None Seen); Urine Bacteria <20 /HPF (<20); Urine Bilirubin NEGATIVE (Negative); Urine Blood Negative (Negative); Urine Clarity Turbid (Clear); Urine Color Yellow (Yellow); Urine Culture Reflex Order NOT NEEDED; Urine Glucose NEGATIVE (Negative); Urine Ketones NEGATIVE (Negative); Urine Microscopic Reflex YN ORDER UMIC; Urine Mucus 1+ /HPF (None Seen); Urine Nitrite NEGATIVE (Negative); Urine Protein 1+ (Negative); Urine RBC <5 /HPF (None Seen); Urine Urobilinogen Normal (Normal); Urine WBC <5 /HPF (<5); Urine pH 7.5 (5.0-7.0)
[2024-08-02] MEDS ORDERED: cloNIDine HCL 0.1 MG TAB ONE (18:31)
--- NOTE | 2024-08-02 19:01 | RAD REPORT ---
EXAMINATION: ONE VIEW CHEST XR CLINICAL INDICATION: Female, 43 years old.,COUGH TECHNIQUE: Frontal chest projection is submitted. Examination is limited by patient positioning and t echnique. COMPARISON: 05/20/2024 FINDINGS: The lungs are well inflated and clear. No pneumothorax or sizable effusion. The heart is normal in s ize. Mediastinal contours are unremarkable. IMPRESSION: No acute intrathoracic abnormalities.
--- NOTE | 2024-08-02 19:55 | RAD REPORT ---
EXAM: CT Head Brain Wo Cont HISTORY: hypertension, vomiting COMPARISON: 10/15/2020 TECHNIQUE: Multiple contiguous axial images were obtained for a CT of the brain without contrast. Sag ittal and coronal reformats were performed. One or more of the following dose reduction techniques were used: Automated exposure control, adjus tment of the mA and kV according to patient size, and iterative reconstruction. Unless otherwise specified, incidental findings do not require dedicated imaging follow-up. FINDINGS: No evidence of hydrocephalus, intracranial hemorrhage, or extra-axial fluid collection. The brain is normal in morphology. The calvarium is intact. The visualized paranasal sinuses and mastoid air cells are essentially clear . IMPRESSION: No evidence of acute intracranial abnormality.
--- NOTE | 2024-08-02 20:10 | RAD REPORT ---
EXAMINATION: CT Abdomen Pelvis Wo Contrast CLINICAL INDICATION: Female, 43 years old. vomiting TECHNIQUE: CT abdomen and pelvis was performed, without IV contrast, as per department protocol. Axia l, sagittal and coronal reconstructions were obtained. One or more of the dose reduction techniques were used: Automated exposure control, adjustment of the mA and kV according to the patient size, and iterative reconstruction. Unless otherwise specified, incidental findings do not require dedicated follow-up. COMPARISON: 05/20/2024. FINDINGS: The lack of intravenous contrast limits the sensitivity of this exam for evaluation of solid visceral organs, vascular structures, and retroperitoneum. LOWER CHEST: The visualized lung bases are clear. LIVER: Normal in size and contour. Diffuse parenchymal hypoattenuation suggesting steatosis. Small ge ographic regions of fatty sparing adjacent to the gallbladder bed. No focal lesion. BILIARY SYSTEM: No suspicious abnormalities. SPLEEN: Normal size. No focal lesion. PANCREAS: No mass, ductal dilation, or janice-pancreatic fluid. ADRENALS: Normal; no mass. KIDNEYS AND URETERS: Normal size and contour. No hydronephrosis. Right mid to lower pole nonobstructi ng 3 mm calculus. URINARY BLADDER: Normal contour. GASTROINTESTINAL TRACT: No evidence of bowel obstruction, significant free fluid, free air or abscess . APPENDIX: Normal appendix. LYMPH NODES: No lymphadenopathy. Bulky appearance of the uterus again seen. MUSCULOSKELETAL: No acute or suspicious osseous abnormality. ADDITIONAL FINDINGS: Dominant right adnexal cyst or follicle measuring 2.9 cm. IMPRESSION: Stable nonobstructing right mid to lower pole 3 mm renal calculus. No hydronephrosis. Diffuse hepatic steatosis. Bulky appearance of the uterus again seen. Previously, this demonstrated septate or bicornuate morpho logy.
[2024-08-02] MEDS ORDERED: ONDANSETRON 4 MG/2 ML VIAL ONE (20:54)
--- NOTE | 2024-08-02 20:54 | EDPHYS ---
Physician Documentation [facility] Name: Yas Corbett Age: 43 yrs Sex: Female : 1980 Arrival Date: 08/02/2024 Time: 15:50 Bed 20 Private MD: ED Physician Alicia Scales HPI: 08/02 16:20 This 43 yrs old Female presents to ER via Wheelchair with complaints of body cp cramps. 16:20 generalized body cramps. cp 16:20 The patient presents to the emergency department with nausea, that is moderate, cp vomiting, that is continuous, described as bilious. Onset: The symptoms/episode began/occurred this morning. Severity of symptoms: in the emergency department the symptoms are unchanged despite home interventions. 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 - Infectious Disease History:: Denies. - Social history:: Smoking status: Patient denies any tobacco usage or history of. ROS: 16:25 Constitutional: Positive for body aches, poor PO intake, Negative for chills, fever, cp 16:25 Eyes: Negative for injury, pain, redness, and discharge, cp 16:25 Respiratory: Positive for cough, 16:25 Abdomen/GI: Positive for nausea and vomiting, anorexia, Negative for abdominal pain, diarrhea, constipation, hematemesis, Exam: 16:30 Constitutional: The patient appears in no acute distress, alert, awake, cp non-diaphoretic, non-toxic, well developed, well nourished, obese, uncomfortable, 16:30 Head/Face: Normocephalic, atraumatic. cp 16:30 Eyes: Periorbital structures: appear normal, Conjunctiva: normal, no exudate, no injection, Sclera: no appreciated abnormality, Lids and lashes: appear normal, bilaterally, 16:30 ENT: External ear(s): are unremarkable, Nose: is normal, Mouth: Lips: moist, Oral mucosa: moist, Posterior pharynx: Airway: no evidence of obstruction, patent, 16:30 Chest/axilla: Inspection: normal, 16:30 Cardiovascular: Rate: normal, Rhythm: regular, Edema: is not appreciated, JVD: is not appreciated, 16:30 Respiratory: the patient does not display signs of respiratory distress, Respirations: normal, no use of accessory muscles, no retractions, labored breathing, is not present, Breath sounds: are clear throughout, no decreased breath sounds, no stridor, no wheezing, 16:30 Abdomen/GI: Inspection: obese Bowel sounds: active, all quadrants, Palpation: soft, in all quadrants, mild abdominal tenderness, in the epigastric area and right upper quadrant, rebound tenderness, is not appreciated, involuntary guarding, is not appreciated, 16:30 Neuro: Orientation: to person, place \T\ time. Mentation: is normal, Vital Signs: 16:10 BP 153 / 108; Pulse 98; Resp 18; Temp 97.6; Pulse Ox 100% ; Weight 107.95 kg; Height 5 ll1 ft. 4 in. ; Pain 10/10; 18:08 BP 214 / 126; Pulse 80; Resp 16; Pulse Ox 99% ; me1 19:00 BP 195 / 125; Pulse 86; Resp 16; Pulse Ox 98% ; me1 20:00 BP 204 / 121; Pulse 88; Resp 16; Pulse Ox 99% ; me1 20:51 BP 185 / 120; Pulse 84; Resp 16; Pulse Ox 96% ; me1 16:10 Body Mass Index 40.85 (107.95 kg, 162.56 cm) ll1 16:10 Pain Scale: Adult ll1 MDM: 16:10 Medical Screening Exam initiated cp 20:53 Data reviewed: vital signs, nurses notes. kb 20:55 Differential diagnosis: viral gastroenteritis, dehydration, abnormal electolytes. kb Counseling: I had a detailed discussion with the patient and/or guardian regarding the historical points, exam findings, and any diagnostic results supporting the discharge/admit diagnosis, lab results, radiology results, the need for outpatient follow up, a family practitioner, to return to the emergency department if symptoms worsen or persist or if there are any questions or concerns that arise at home. ED course: Pt tolerating po intake at this time. Pt is asymptomatic of bp. States she couldn't keep her medicine down this morning. Will take her night doses when she gets home. 01/11 16:16 Order name: CBC with Diff; Complete Time: 18:10 08/02 18:10 Interpretation: Normal except: WBC 16.20; RBC 5.15; MCV 74.1; MCH 23.7; MCHC 31.9; RDW cp 16.7; JOVANY% 79.5; LYM% 13.0; NEUT A 12.9. 08/02 16:16 Order name: CMP; Complete Time: 18:31 08/02 16:16 Order name: Lipase; Complete Time: 18:31 08/02 16:16 Order name: Test, Urine; Complete Time: 18:31 08/02 16:16 Order name: Urinalysis w/ reflexes; Complete Time: 18:31 08/02 16:22 Order name: Influenza Screen (a \T\ B); Complete Time: 18:10 08/02 16:22 Order name: SARS RAPID; Complete Time: 18:10 08/02 17:20 Order name: Strep; Complete Time: 19:57 08/02 20:03 Order name: Throat Culture [facility] 08/02 17:21 Order name: US Abdomen Limited: gallbladder; Complete Time: 18:25 08/02 18:25 Interpretation: Report reviewed. 08/02 17:56 Order name: XRAY Chest (1 view); Complete Time: 19:06 08/02 18:10 Order name: CT Abd/Pelvis - Without Contrast; Complete Time: 20:23 08/02 18:11 Order name: CT Head Brain wo Cont; Complete Time: 19:57 08/02 16:16 Order name: IV Saline Lock; Complete Time: 17:39 08/02 16:16 Order name: Labs collected and sent; Complete Time: 17:39 08/02 19:06 Order name: Vital Signs; Complete Time: 21:03 kb Administered Medications: 17:39 Drug: NS 0.9% IV 1000 ml IV at 1000 ml once; to be given as a bolus over 60 minutes me1 Route: IV; Rate: 1000 ml; Site: right hand; 20:57 Follow up: Response: No adverse reaction; IV Status: Completed infusion; IV Intake: me1 1000ml 18:36 Drug: cloNIDine PO 0.2 mg PO once Route: PO; me1 20:52 Follow up: Response: No adverse reaction; Blood pressure is unchanged me1 20:56 Drug: Ondansetron IVP 4 mg IVP once; over 2 minutes Route: IVP; Site: left hand; me1 20:57 Follow up: Response: No adverse reaction; Nausea is decreased me1 Disposition Summary: 08/02/24 20:54 Discharge Ordered Notes: Location: Home kb Condition: Stable kb Diagnosis - Nausea with vomiting, unspecified kb - Essential (primary) hypertension kb Followup: kb - With: Emergency Department - When: As needed - Reason: Worsening of condition Followup: kb - With: Private Physician - When: 2 - 3 days - Reason: Recheck today's complaints, Continuance of care, Re-evaluation by your physician Discharge Instructions: - Discharge Summary Sheet kb - Nausea and Vomiting, Adult, [id number] kb - Hypertension, Adult, [id number] kb Forms: - Medication Reconciliation Form kb - Antibiotic Education kb - Prescription Opioid Use kb - Patient Portal Instructions kb - Leadership Thank You Letter kb Prescriptions: - Zofran 4 mg Oral tablet - take 1 tablet ORAL route every 6 hours As needed; 12 tablet; Refills: 0, kb Product Selection Permitted Signatures: Dispatcher [employer] EDMS Radha Beltran, OIM ARCHITECT-C OIM ARCHITECT-Ckb Niko Mora PA PA cp Lewis, Lynsay, RN RN ll1 Tania Patrick RN RN me1 Corrections: (The following items were deleted from the chart) 16:17 16:17 CBC+H.LAB.BRZ ordered. EDMS EDMS 16:17 16:17 COMPREHENSIVE METABOLIC PANEL+C.LAB.BRZ ordered. EDMS EDMS 16:17 16:17 LIPASE+C.LAB.BRZ ordered. EDMS EDMS 16:17 16:17 Test, Urine+UC.LAB.BRZ ordered. EDMS EDMS 16:17 16:17 Urinalysis+U.LAB.BRZ ordered. EDMS EDMS 16:22 16:22 Influenza Screen (A \T\ B)+BA.LAB.BRZ ordered. EDMS EDMS 16:22 16:22 SARS-COV-2 Antigen Rapid+I.LAB.BRZ ordered. EDMS EDMS 17:55 17:53 generalized body cramps. cp cp
--- NOTE | 2024-08-02 20:54 | ER ---
Nurse's Notes [facility] Name: Yas Corbett Age: 43 yrs Sex: Female : 1980 Arrival Date: 08/02/2024 Time: 15:50 Bed 20 Private MD: Diagnosis: Nausea with vomiting, unspecified;Essential (primary) hypertension Presentation: 08/02 16:10 Chief complaint: Patient states: N/V for 2 days. Hands started cramping yesterday, now ll1 entire body is cramping up. Coronavirus screen: Client denies travel out of the [place] in the last 14 days. cough unrelated to allergies, fatigue, headache, nausea, runny nose, sore throat, vomiting. Client presents with at least one sign or symptom that may indicate coronavirus-19. Standard/surgical mask placed on the client. Ebola Screen: Patient denies travel to an Ebola-affected area in the 21 days before illness onset. Initial Sepsis Screen: Does the patient meet any 2 criteria? No. Patient's initial sepsis screen is negative. Does the patient have a suspected source of infection? No. Patient's initial sepsis screen is negative. Risk Assessment: Do you want to hurt yourself or someone else? Patient reports no desire to harm self or others. Onset of symptoms was August 01, 2024. 16:10 Method Of Arrival: Wheelchair ll1 16:10 Acuity: CRUZ 3 ll1 Triage Assessment: 16:10 General: Appears uncomfortable, Behavior is calm, cooperative, appropriate for age. ll1 Pain: Complains of pain in body Quality of pain is described as aching. Neuro: Reports weakness. Respiratory: Reports cough that is. GI: Reports cramping, nausea, vomiting. 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 - Infectious Disease History:: Denies. - Social history:: Smoking status: Patient denies any tobacco usage or history of. Screenin:25 [facility] ED Fall Risk Assessment (Adult) History of falling in the last 3 months, me1 including since admission No falls in past 3 months (0 pts) Confusion or Disorientation No (0 pts) Intoxicated or Sedated No (0 pts) Impaired Gait No (0 pts) Mobility Assist Device Used No (0 pt) Altered Elimination No (0 pt) Score/Fall Risk Level 0 - 2 = Low Risk Maintained a safe environment, Provided non-skid footwear, Hourly rounding (assess needs \T\ fall precautionary measures) done. Abuse screen: Denies threats or abuse. Nutritional screening: No deficits noted. Tuberculosis screening: No symptoms or risk factors identified. Assessment: 16:25 General: Appears uncomfortable, ill, well groomed, well developed, well nourished, me1 Behavior is calm, cooperative, appropriate for age, Reports nasal congestion for the past few days then N/V for 2 days. Hands started cramping yesterday, now entire body is cramping up. Pain: Complains of pain in right hand and left hand Pain does not radiate. Pain currently is 0 out of 10 on a pain scale. at worst was 10 out of 10 on a pain scale. Quality of pain is described as crampy, Pain began 1 day ago. Is intermittent. Neuro: Level of Consciousness is awake, alert, obeys commands, Oriented to person, place, time, situation, Appropriate for age. Cardiovascular: Patient's skin is warm and dry. Respiratory: Airway is patent Respiratory effort is even, unlabored, Respiratory pattern is regular, symmetrical. GI: Reports nausea, vomiting, since 2 days ago. : No signs and/or symptoms were reported regarding the genitourinary system. EENT: Reports nasal congestion since 3-5 days ago. Derm: Skin is intact, is healthy with good turgor, Skin is pink, warm \T\ dry. Musculoskeletal: Reports muscle cramps in bilateral hands since yesterday and now cramping all over. Vital Signs: 16:10 BP 153 / 108; Pulse 98; Resp 18; Temp 97.6; Pulse Ox 100% ; Weight 107.95 kg; Height 5 ll1 ft. 4 in. ; Pain 10/10; 18:08 BP 214 / 126; Pulse 80; Resp 16; Pulse Ox 99% ; me1 19:00 BP 195 / 125; Pulse 86; Resp 16; Pulse Ox 98% ; me1 20:00 BP 204 / 121; Pulse 88; Resp 16; Pulse Ox 99% ; me1 20:51 BP 185 / 120; Pulse 84; Resp 16; Pulse Ox 96% ; me1 16:10 Body Mass Index 40.85 (107.95 kg, 162.56 cm) ll1 16:10 Pain Scale: Adult [facility] ED Course: 15:52 Patient arrived in ED. al6 16:09 Arm band placed on. ll1 16:10 Niko Mora PA is PHCP. cp 16:10 Alicia Scales MD is Attending Physician. cp 16:11 Triage completed. ll1 16:25 Patient has correct armband on for positive identification. Bed in low position. Call me1 light in reach. Side rails up X 1. Provided Education on: POC. Verbalized understanding.. Client placed on continuous cardiac and pulse oximetry monitoring. NIBP monitoring applied. Pulse ox on. NIBP on. 16:25 No provider procedures requiring assistance completed. me1 16:32 Tania Patrick, MARK is Primary Nurse. me1 16:45 COVID swab sent to lab. Flu and/or RSV swab sent to lab. me1 17:39 Initial lab(s) drawn, by va, sent to lab. Inserted saline lock: 24 gauge in left hand, me1 using aseptic technique. 17:50 US Abdomen Limited: gallbladder In Process Unspecified. EDMS 18:08 Urinalysis w/ reflexes Sent. me1 18:08 Test, Urine Sent. me1 18:08 Urine collected: clean catch specimen, clear. me1 18:25 XRAY Chest (1 view) In Process Unspecified. EDMS 18:28 PHCP role handed off by Niko Mora PA kb 18:28 Radha Beltran FNP-C is PHCP. kb 19:10 CT Abd/Pelvis - Without Contrast In Process Unspecified. EDMS 19:10 CT Head Brain wo Cont In Process Unspecified. EDMS 21:02 IV discontinued, intact, bleeding controlled, No redness/swelling at site. Pressure me1 dressing applied. Administered Medications: 17:39 Drug: NS 0.9% IV 1000 ml IV at 1000 ml once; to be given as a bolus over 60 minutes me1 Route: IV; Rate: 1000 ml; Site: right hand; 20:57 Follow up: Response: No adverse reaction; IV Status: Completed infusion; IV Intake: me1 1000ml 18:36 Drug: cloNIDine PO 0.2 mg PO once Route: PO; me1 20:52 Follow up: Response: No adverse reaction; Blood pressure is unchanged me1 20:56 Drug: Ondansetron IVP 4 mg IVP once; over 2 minutes Route: IVP; Site: left hand; me1 20:57 Follow up: Response: No adverse reaction; Nausea is decreased me1 Medication: 16:25 VIS not applicable for this client. me1 Intake: 20:57 IV: 1000ml; Total: 1000ml. me1 Outcome: 20:54 Discharge ordered by . kb 21:02 Discharged to home ambulatory, with family, me1 21:02 Condition: stable 21:02 Discharge instructions given to patient, family, Instructed on discharge instructions, follow up and referral plans. medication usage, Demonstrated understanding of instructions, follow-up care, medications, Prescriptions given X 1, 21:04 Patient left the ED. va1 Signatures: Dispatcher [employer] EDNC Radha Beltran, RICCI-C CHINESE TEACHER-CkNiko Ramos PA PA cp Lewis, Lynsay, RN RN ll1 Tania Patrick RN RN me1 Kenya Zaidi al6 Corrections: (The following items were deleted from the chart) 17:46 16:10 Chief complaint: Patient states: N/V for 2 days. Hands started cramping me1 yesterday, now entire body is cramping up. ll1
[2024-08-05 15:35] VITALS: BP 185/120; TEMP 97.6; O2SAT 96
== END 2024-08-02 21:04 | disposition home or self-care (01) ==
LOC: ER 15:50
DX: R11.2 Nausea with vomiting, unspecified (principal); I10 Essential (primary) hypertension; M79.7 Fibromyalgia; M32.9 Systemic lupus erythematosus, unspecified; I25.2 Old myocardial infarction; Z11.52 Encounter for screening for COVID-19
CPT/HCPCS: 36415; 70450; 71045; 74176; 76705; 80053; 81001; 81025; 83690; 85025; 87070; 87081; 87804; 87811; 96361; 96374; 99284; J2405; J7030

== ENCOUNTER 2024-11-26 20:40 | Emergency (ER) | payer OTHER, SELFPAY ==
--- NOTE | 2024-11-26 20:54 | EDPHYS ---
Physician Documentation [facility] Name: Yas Corbett Age: 43 yrs Sex: Female : 1980 Arrival Date: 11/26/2024 Time: 20:40 Bed 13 Private MD: ED Physician Matthew Pinto HPI: 11/26 21:13 This 43 yrs old Female presents to ER via Ambulatory with complaints of Flu kb Symptoms, Shortness Of Breath. 21:13 Pt is a 43 year old female who presents for cough, congestion, fever, chills and kb bodyaches that started 4 days ago. Denies chest pain, shortness of breath. . 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 - Infectious Disease History:: Denies. - Social history:: Smoking status: Patient reports the use of cigarette tobacco products, denies chronic smoking, but will smoke occasionally. ROS: 21:12 Constitutional: As per HPI kb Exam: 21:12 Constitutional: This is a well developed, well nourished patient who is awake, alert, kb and in no acute distress. Head/Face: Normocephalic, atraumatic. ENT: Moist Mucous membranes Cardiovascular: Regular rate Respiratory: Respirations even and unlabored. No increased work of breathing. Talking in full sentences Abdomen/GI: Soft, non-tender. No distention Skin: Warm, dry with normal turgor. Normal color. MS/ Extremity: Pulses equal, no cyanosis. Neurovascular intact. Full, normal range of motion. Neuro: Awake and alert, GCS 15, oriented to person, place, time, and situation. Vital Signs: 20:50 Pulse 94; Resp 18; Temp 99.4; Pulse Ox 100% on R/A; Weight 104.33 kg; Height 5 ft. 4 dd2 in. ; 21:06 BP 215 / 116; bm8 22:16 BP 191 / 116; Pulse 90; Resp 18; Temp 99; Pulse Ox 100% ; Pain 0/10; bm8 20:50 Body Mass Index 39.48 (104.33 kg, 162.56 cm) dd2 22:16 Pain Scale: Adult bm8 Cony Coma Score: 22:16 Eye Response: spontaneous(4). Motor Response: obeys commands(6). Verbal Response: bm8 oriented(5). Total: 15. MDM: 20:47 Medical Screening Exam initiated kb 21:14 Differential diagnosis: flu, covid, uri, viral infection, pneumoina. Data reviewed: kb vital signs, nurses notes. I considered the following discharge prescriptions or medication management in the emergency department I discussed and recommended Over The Counter medications, Antibiotics: At this time antibiotics are not recommended. Test considered but Not performed: Labs: covid test considered but result would not change plan of care. X-ray: CXR considered but lungs clear bilaterally, resp even and unlabored, oxygen 100% on room air. Counseling: I had a detailed discussion with the patient and/or guardian regarding the historical points, exam findings, and any diagnostic results supporting the discharge/admit diagnosis, the need for outpatient follow up, a family practitioner, to return to the emergency department if symptoms worsen or persist or if there are any questions or concerns that arise at home. 21:17 Special discussion: I have referred the patient to see his PCP for further evaluation kb of high blood pressure. ED course: Pt states she is supposed to be on medications for HTN, but lost her insurance so she wasn't able to get her medication refilled. States she takes losartan 50mg daily, carvedilol 12.5mg BID and amlodipine 5mg daily. will give doses now and give prescriptions for home. Administered Medications: 21:09 Drug: Dexamethasone IM 10 mg IM once Route: IM; Site: right ventrogluteal; bm8 22:16 Follow up: Response: No adverse reaction bm8 21:19 Drug: Losartan PO 50 mg PO once Route: PO; bm8 22:16 Follow up: Response: No adverse reaction bm8 21:19 Drug: amLODIPine PO 5 mg PO once Route: PO; bm8 22:16 Follow up: Response: No adverse reaction bm8 21:19 Drug: carvedilol PO 12.5 mg PO once; administer with food Route: PO; bm8 22:16 Follow up: Response: No adverse reaction bm8 Disposition: 23:51 Co-signature as Attending Physician, Matthew Pinto MD I agree with the assessment sp4 and plan of care. I reviewed the patient's care provided by the Advanced Practice Provider and agree with the diagnosis and treatment plan. Disposition Summary: 11/26/24 20:54 Discharge Ordered Notes: Location: Home kb Condition: Stable kb Diagnosis - Acute upper respiratory infection, unspecified kb - Essential (primary) hypertension kb Followup: kb - With: Emergency Department - When: As needed - Reason: Worsening of condition Followup: kb - With: Private Physician - When: 2 - 3 days - Reason: Recheck today's complaints, Continuance of care, Re-evaluation by your physician Discharge Instructions: - Discharge Summary Sheet kb - Upper Respiratory Infection, Adult, [id number] kb - Viral Respiratory Infection, [id number] kb Forms: - Medication Reconciliation Form kb - Antibiotic Education kb - Prescription Opioid Use kb - Patient Portal Instructions kb - Leadership Thank You Letter kb - Work release form sp Prescriptions: - losartan 50 mg Oral tablet - take 1 tablet ORAL route daily; 30 tablet; Refills: 0, Product Selection kb Permitted - Norvasc 5 mg Oral tablet - take 1 tablet ORAL route once daily; 30 tablet; Refills: 0, Product Selection kb Permitted - Prednisone 20 mg Oral Tablet - take 1 tablet ORAL route once daily for 5 days; 5 tablet; Refills: 0, Product kb Selection Permitted - Carvedilol 12.5 mg Oral Tablet - take 1 tablet ORAL route 2 times per day with food; 60 tablet; Refills: 0, kb Product Selection Permitted Signatures: Radha Beltran, RICCI-C RICCI-Matthew Palmer MD MD sp4 Tyler Darnell, RN RN bm8 FRANK ESPINOZA RN RN dd2
--- NOTE | 2024-11-26 20:54 | ER ---
Nurse's Notes [facility] Name: Yas Corbett Age: 43 yrs Sex: Female : 1980 Arrival Date: 11/26/2024 Time: 20:40 Bed 13 Private MD: Diagnosis: Acute upper respiratory infection, unspecified;Essential (primary) hypertension Presentation: 11/26 20:50 Chief complaint: Patient states: bodyaches, congestion, fever, chills, cough x4 days. dd2 Coronavirus screen: chills, congestion, cough unrelated to allergies, fever, muscle pain, shortness of breath. Ebola Screen: No symptoms or risks identified at this time. Initial Sepsis Screen: Does the patient meet any 2 criteria? No. Patient's initial sepsis screen is negative. Does the patient have a suspected source of infection? No. Patient's initial sepsis screen is negative. Risk Assessment: Do you want to hurt yourself or someone else? Patient reports no desire to harm self or others. Onset of symptoms is unknown. 20:50 Method Of Arrival: Ambulatory dd2 20:50 Acuity: CRUZ 4 dd2 Triage Assessment: 20:52 General: Appears in no apparent distress. uncomfortable, Behavior is calm, cooperative, dd2 appropriate for age. Pain: Complains of pain in generalized bodyaches. EENT: Reports nasal congestion. Respiratory: Reports shortness of breath at rest on exertion cough that is pain with cough Airway is patent Respiratory effort is even, unlabored, Respiratory pattern is regular, symmetrical, Breath sounds are clear bilaterally. Onset: The symptoms/episode began/occurred x4 days ago, the patient has mild shortness of breath. 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 - Infectious Disease History:: Denies. - Social history:: Smoking status: Patient reports the use of cigarette tobacco products, denies chronic smoking, but will smoke occasionally. Screenin:05 [facility] ED Fall Risk Assessment (Adult) History of falling in the last 3 months, bm8 including since admission No falls in past 3 months (0 pts) Confusion or Disorientation No (0 pts) Intoxicated or Sedated No (0 pts) Impaired Gait No (0 pts) Mobility Assist Device Used No (0 pt) Altered Elimination No (0 pt) Score/Fall Risk Level 0 - 2 = Low Risk Oriented to surroundings, Maintained a safe environment, Educated pt \T\ family on fall prevention, incl call for assistance when getting out of bed, Assessed \T\ reinforced patient's understanding of fall precautions, Hourly rounding (assess needs \T\ fall precautionary measures) done. Abuse screen: Denies threats or abuse. Denies injuries from another. Nutritional screening: No deficits noted. Tuberculosis screening: No symptoms or risk factors identified. Assessment: 21:06 General: Appears in no apparent distress. uncomfortable, Behavior is calm, cooperative, bm8 appropriate for age. Pain: Complains of pain in generalized Quality of pain is described as aching. Neuro: No deficits noted. Level of Consciousness is awake, alert, obeys commands, Oriented to person, place, time, situation, Appropriate for age. Cardiovascular: Patient's skin is warm and dry. Rhythm is regular. Respiratory: Reports shortness of breath at rest on exertion cough that is non-productive, Airway is patent Respiratory effort is even, unlabored, Respiratory pattern is regular, symmetrical, Breath sounds are clear bilaterally. GI: No deficits noted. No signs and/or symptoms were reported involving the gastrointestinal system. : No deficits noted. No signs and/or symptoms were reported regarding the genitourinary system. EENT: Nares are clear with drainage noted Reports nasal congestion nasal discharge that is watery. Derm: No deficits noted. No signs and/or symptoms reported regarding the dermatologic system. Musculoskeletal: No deficits noted. No signs and/or symptoms reported regarding the musculoskeletal system. 21:20 Reassessment: pt awaiting discharge for medication effectiveness evaluation. bm8 22:16 Reassessment: Patient appears in no apparent distress at this time. Patient and/or bm8 family updated on plan of care and expected duration. Pain level reassessed. Patient is alert, oriented x 3, equal unlabored respirations, skin warm/dry/pink. Patient denies pain at this time. Patient states feeling better. Patient states symptoms have improved. Vital Signs: 20:50 Pulse 94; Resp 18; Temp 99.4; Pulse Ox 100% on R/A; Weight 104.33 kg; Height 5 ft. 4 dd2 in. ; 21:06 BP 215 / 116; bm8 22:16 BP 191 / 116; Pulse 90; Resp 18; Temp 99; Pulse Ox 100% ; Pain 0/10; bm8 20:50 Body Mass Index 39.48 (104.33 kg, 162.56 cm) dd2 22:16 Pain Scale: Adult bm8 Cony Coma Score: 22:16 Eye Response: spontaneous(4). Motor Response: obeys commands(6). Verbal Response: bm8 oriented(5). Total: 15. ED Course: 20:45 Patient arrived in ED. cj3 20:47 [facility] Bel[facility]C [facility] kb 20:47 Matthew Pinto MD is Attending Physician. kb 20:52 Triage completed. dd2 20:52 Arm band placed on right wrist. dd2 21:00 Tyler Darnell, RN is Primary Nurse. bm8 21:05 Patient has correct armband on for positive identification. Bed in low position. Call bm8 light in reach. Side rails up X 1. Client placed on continuous cardiac and pulse oximetry monitoring. NIBP monitoring applied. Door closed. Noise minimized. Pillow given. Verbal reassurance given. 21:05 No provider procedures requiring assistance completed. Patient did not have IV access bm8 during this emergency room visit. Patient maintains SpO2 saturation greater than 95% on room air. 22:16 Provided Education on: post er care. bm8 Administered Medications: 21:09 Drug: Dexamethasone IM 10 mg IM once Route: IM; Site: right ventrogluteal; bm8 22:16 Follow up: Response: No adverse reaction bm8 21:19 Drug: Losartan PO 50 mg PO once Route: PO; bm8 22:16 Follow up: Response: No adverse reaction bm8 21:19 Drug: amLODIPine PO 5 mg PO once Route: PO; bm8 22:16 Follow up: Response: No adverse reaction bm8 21:19 Drug: carvedilol PO 12.5 mg PO once; administer with food Route: PO; bm8 22:16 Follow up: Response: No adverse reaction bm8 Medication: 21:05 VIS not applicable for this client. bm8 Outcome: 20:54 Discharge ordered by . kb 22:16 Discharged to home ambulatory, bm8 22:16 Condition: stable 22:16 Discharge instructions given to patient, family, Instructed on discharge instructions, follow up and referral plans. no drinking with medication, no driving heavy equipment, medication usage, safety practices, Demonstrated understanding of instructions, follow-up care, medications, Prescriptions given X 4, 22:18 Patient left the ED. bm8 Signatures: Radha Beltran, PRO WYNNE-Tyler Martinez RN RN bm8 FRANK ESPINOZA RN RN dd2 Sigrid Haji cj3
[2024-11-26] MEDS ORDERED: dexAMETHasone 10 MG/ML VIAL ONE (21:01)
[2024-11-26] MEDS ORDERED: AMLODIPINE 5 MG TAB ONE (21:16)
[2024-11-26] MEDS ORDERED: carvediloL 6.25 MG TAB ONE (21:17)
[2024-11-26] MEDS ORDERED: LOSARTAN POTASSIUM 50 MG TABLET ONE (21:17)
[2024-11-26 23:02] VITALS: O2SAT 100
[2024-11-26 23:05] VITALS: BP 191/116; TEMP 99
== END 2024-11-26 22:18 | disposition home or self-care (01) ==
LOC: ER 20:40
DX: J06.9 Acute upper respiratory infection, unspecified (principal); I10 Essential (primary) hypertension; F17.210 Nicotine dependence, cigarettes, uncomplicated
CPT/HCPCS: J1100

== ENCOUNTER 2025-03-16 22:19 | Inpatient (IN) | payer OTHER, SELFPAY ==
[2025-03-16 23:24] LABS: Sqamous Epithelial <5 /HPF (None Seen); Urine Culture Reflex Order NOT NEEDED; Urine Microscopic Reflex YN ORDER UMIC
[2025-03-16 23:26] LABS: Absolute Lymphocytes (CBC) 2.6 K/uL (0.7-4.9); Hematocrit 35.0 % (36.0-45.0); Hemoglobin 11.4 g/dL (12.0-15.0); MCH 24.0 pg (27.0-35.0); MCHC 32.7 g/dL (32.0-36.0); MCV 73.6 fL (80-100); MPV 8.3 fL (7.6-11.3); Nucleated RBC Absolute Count 0.0 (0-0); Nucleated Red Blood Cells % 0.1 % (0-0); RBC Red Blood Cell Count 4.76 M/uL (3.86-4.86); White Blood Count 9.20 thou/uL (4.3-10.9)
[2025-03-16] MEDS ORDERED: NA CHLORIDE 0.9% 1,000 ML ONE (23:26)
[2025-03-16 23:41] LABS: Anion Gap 8.3 mEq/L (5.0-15.0); BUN Blood Urea Nitrogen 10 mg/dL (7-18); Glucose Level 111 mg/dL (74-106); HCG, Quantitative < 1 mIU/mL (1-3); Potassium 3.3 mEq/L (3.5-5.1)
[2025-03-17] MEDS ORDERED: LABETALOL HCL 100 MG TAB ONE (00:34)
[2025-03-17] MEDS ORDERED: HYDRALAZINE HCL 25 MG TABLET ONE (00:34)
[2025-03-17] MEDS ORDERED: LABETALOL HCL 100 MG/20 ML ONE ×2 (00:35→03:03)
--- NOTE | 2025-03-17 00:46 | ER ---
Nurse's Notes [facility] Name: Yas Corbett Age: 44 yrs Sex: Female : 1980 Arrival Date: 03/16/2025 Time: 22:19 Bed 20 Private MD: Diagnosis: Systemic lupus erythematosus, unspecified;Essential (primary) hypertension;Other specified abnormal uterine and vaginal bleeding Presentation: 03/16 22:44 Chief complaint: Patient states: c/o pelvic cramping since Sunday and vaginal spotting al5 since yesterday. states it is intermittent, but when it happens the cramping is consistent. patient states she is about 3 months . Coronavirus screen: At this time, the client does not indicate any symptoms associated with coronavirus-19. Ebola Screen: No symptoms or risks identified at this time. Initial Sepsis Screen: Does the patient meet any 2 criteria? No. Patient's initial sepsis screen is negative. Does the patient have a suspected source of infection? No. Patient's initial sepsis screen is negative. Risk Assessment: Do you want to hurt yourself or someone else? Patient reports no desire to harm self or others. Onset of symptoms was March 15, 2025. 22:44 Method Of Arrival: Ambulatory al5 22:44 Acuity: CRUZ 3 al5 Triage Assessment: 22:44 General: Appears in no apparent distress. comfortable, Behavior is calm, cooperative. al5 Pain: Complains of pain in suprapubic area, right lower quadrant, left lower quadrant and groin. EENT: No signs and/or symptoms were reported regarding the EENT system. Neuro: Level of Consciousness is awake, alert, obeys commands, Oriented to person, place, time, situation. Cardiovascular: Capillary refill < 3 seconds Patient's skin is warm and dry. Respiratory: Airway is patent Respiratory effort is even, unlabored, Respiratory pattern is regular, symmetrical. GI: No signs and/or symptoms were reported involving the gastrointestinal system. : Reports vaginal bleeding that is spotty, blood tinged vaginal cramping. Derm: Skin is intact, is healthy with good turgor, Skin is pink, warm \\T\\ dry. normal. Musculoskeletal: Circulation, motion, and sensation intact. Range of motion: intact in all extremities. 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 - Infectious Disease History:: Denies. - Family history:: not pertinent. - Social history:: Smoking status: Patient reports the use of cigarette tobacco products, denies chronic smoking, but will smoke occasionally. Screenin:48 [facility] ED Fall Risk Assessment (Adult) History of falling in the last 3 months, al5 including since admission No falls in past 3 months (0 pts) Confusion or Disorientation No (0 pts) Intoxicated or Sedated No (0 pts) Impaired Gait No (0 pts) Mobility Assist Device Used No (0 pt) Altered Elimination No (0 pt) Score/Fall Risk Level 0 - 2 = Low Risk Oriented to surroundings, Maintained a safe environment, Hourly rounding (assess needs \\T\\ fall precautionary measures) done. Abuse screen: Denies threats or abuse. Denies injuries from another. Nutritional screening: No deficits noted. Tuberculosis screening: No symptoms or risk factors identified. Assessment: 22:48 Reassessment: see triage assessment. al5 23:00 Reassessment: No changes from previously documented assessment. Patient and/or family olman updated on plan of care and expected duration. Pain level reassessed. Patient is alert, oriented x 3, equal unlabored respirations, skin warm/dry/pink. Patient denies pain at this time. Reassessment: Patient appears in no apparent distress at this time. General: Appears in no apparent distress. uncomfortable, Behavior is calm, cooperative. 03/17 01:01 Reassessment: Patient appears in no apparent distress at this time. Patient and/or kb4 family updated on plan of care and expected duration. Pain level reassessed. Patient is alert, oriented x 3, equal unlabored respirations, skin warm/dry/pink. gave IVP labetalol for HTN per MD order. 01:25 Reassessment: pt experiencing "chest heavieness"(vitals stable, denies SOB), MD thurman notified and aware; instructed to allow for it to subside. 02:28 Reassessment: pt experiencing lupus flare up, notified and aware: instructed to kb4 administer Morphine, SoluMedrol and Zofran per orders. 03:20 Reassessment: held labetalol due to BP 144/80, notified. states to hold onto kb4 labetalol in case of increasing BP. 04:00 Reassessment: BP stabilized, notified provider, med not given. kb4 Vital Signs: 03/16 22:44 BP 244 / 133; Pulse 89; Resp 18; Temp 99.3(O); Pulse Ox 100% on R/A; Weight 104.33 kg; al5 Height 5 ft. 4 in. ; 23:00 BP 244 / 133; Pulse 98; Resp 18; Pulse Ox 100% on R/A; kb4 23:30 BP 207 / 122; Pulse 91; Resp 18; Pulse Ox 99% on R/A; kb4 03/17 00:30 BP 222 / 145; Pulse 85; Resp 18; Pulse Ox 100% on R/A; kb4 01:00 BP 189 / 124; Pulse 75; Resp 18; Pulse Ox 98% on R/A; al5 01:30 BP 179 / 106; Pulse 92; Resp 16; Pulse Ox 100% on R/A; al5 02:00 BP 184 / 105; Pulse 92; Resp 17; Pulse Ox 99% on R/A; al5 02:30 BP 170 / 103; Pulse 95; Resp 18; Pulse Ox 100% on R/A; al5 03:00 BP 144 / 80; Pulse 92; Resp 16; Pulse Ox 100% on R/A; al5 03:30 BP 172 / 106; Pulse 87; Resp 17; Pulse Ox 98% on R/A; al5 03:52 BP 158 / 93; Pulse 89; Resp 16; Pulse Ox 100% on R/A; al5 03/16 22:44 Body Mass Index 39.48 (104.33 kg, 162.56 cm) sd5 ED Course: 03/16 22:22 Patient arrived in ED. mr 22:32 Niko Molina MD is Attending Physician. gary 22:44 Arm band placed on right wrist. Patient placed in the treatment room, in view of staff al5 members, on pulse oximetry. 22:47 Cui, Annel, MARK is Primary Nurse. kb4 22:48 Patient has correct armband on for positive identification. Bed in low position. Call al5 light in reach. Side rails up X 1. Provided Education on: plan of care. 22:48 No provider procedures requiring assistance completed. Inserted saline lock: 20 gauge al5 in left antecubital area, using aseptic technique. Blood collected. Flushed with 10 mL NS. 23:14 Triage completed. al5 23:27 US Transvaginal Ob In Process Unspecified. EDMS 03/17 00:44 José Boyer MD is Hospitalizing Provider. [facility] 01:24 Chest Single View XRAY In Process Unspecified. EDMS 03:56 Patient admitted, IV remains in place. al5 Administered Medications: 03/16 23:28 Drug: NS 0.9% IV 1000 ml IV at 1000 ml once; to be given as a bolus over 60 minutes al5 Route: IV; Rate: 1000 ml; Site: left antecubital; 03/17 03:47 Follow up: Response: No adverse reaction; IV Status: Completed infusion; IV Intake: al5 1000ml 00:51 Drug: Labetalol IV 20 mg IV at per protocol once over 2 mins Route: IV; Rate: per al5 protocol; Infused Over: 2 mins; Site: left antecubital; 01:12 Follow up: Response: No adverse reaction kb4 03:47 Follow up: Response: No adverse reaction; Blood pressure is unchanged; IV Status: al5 Completed infusion; IV Intake: 4ml 00:51 Drug: Labetalol PO 100 mg PO once Route: PO; al5 01:12 Follow up: Response: No adverse reaction kb4 00:51 Drug: HydrALAZINE PO 25 mg PO once Route: PO; al5 01:11 Follow up: Response: No adverse reaction kb4 01:18 Drug: hydrALAZINE IVP 20 mg IVP once Route: IVP; Site: left antecubital; kb4 03:47 Follow up: Response: No adverse reaction; Blood pressure is unchanged al5 02:28 Drug: Norvasc PO 10 mg PO once Route: PO; al5 03:54 Follow up: Response: No adverse reaction; Blood pressure is unchanged al5 03:20 Drug: MethylPrednisoLONE IVP 125 mg IVP once Route: IVP; Site: left antecubital; al5 03:55 Follow up: Response: No adverse reaction; Pain is decreased al5 03:20 Drug: morphine IVP or IV 4 mg IVP once over 4 mins Route: IVP; Infused Over: 4 mins; al5 Site: left antecubital; 03:55 Follow up: Response: No adverse reaction; Pain is decreased al5 03:20 Drug: Ondansetron IVP 4 mg IVP once; over 2 minutes Route: IVP; Site: left antecubital; al5 03:55 Follow up: Response: No adverse reaction al5 03:56 Not Given (patient bp 158/93): [id number] mg IV at per protocol once over 2 mins al5 Medication: 03/16 22:48 VIS not applicable for this client. al5 Intake: 03/17 03:47 IV: 1000ml; Total: 1000ml. al5 03:47 IV: 4ml; Total: 1004ml. al5 Outcome: 00:45 Decision to Hospitalize by Provider. gary 03:56 Admitted to ER Hold. Please see [facility] for further documentation. al5 03:56 Condition: stable 03:56 Instructed on the need for admit, 11:25 Patient left the ED. ll1 Signatures: Dispatcher [employer] EDMS Niko Molina MD MD cha Rivera, Mary, [facility] Reg mr Nas Love, RN RN ll1 Kylee Hull RN RN al5 Annel Cui RN RN kb4 Corrections: (The following items were deleted from the chart) 03/16 23:29 23:28 NS 0.9% IV 1000 ml IV at 1000 ml in right antecubital al5 al5
--- NOTE | 2025-03-17 00:46 | EDPHYS ---
Physician Documentation [facility] Name: Yas Corbett Age: 44 yrs Sex: Female : 1980 Arrival Date: 03/16/2025 Time: 22:19 Bed 20 Private MD: ED Physician Niko Molina HPI: 03/16 22:59 This 44 yrs old Female presents to ER via Unassigned with complaints of gary Vaginal Bleeding, + Preg <12wks, Pelvic pressure. 22:59 The patient presents to the emergency department with vaginal bleeding, that is light. gary The estimated gestational age is 10 weeks. course: care: none. 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 - Infectious Disease History:: Denies. - Family history:: not pertinent. - Social history:: Smoking status: Patient reports the use of cigarette tobacco products, denies chronic smoking, but will smoke occasionally. ROS: 23:01 Constitutional: Negative for fever, chills, and weight loss, Eyes: Negative for injury, gary pain, redness, and discharge, ENT: Negative for injury, pain, and discharge, Neck: Negative for injury, pain, and swelling, Cardiovascular: Negative for chest pain, palpitations, and edema, Respiratory: Negative for shortness of breath, cough, wheezing, and pleuritic chest pain, Abdomen/GI: Negative for abdominal pain, nausea, vomiting, diarrhea, and constipation, Back: Negative for injury and pain, MS/Extremity: Negative for injury and deformity, Skin: Negative for injury, rash, and discoloration, Neuro: Negative for headache, weakness, numbness, tingling, and seizure, Psych: Negative for depression, anxiety, suicide ideation, homicidal ideation, and hallucinations, Allergy/Immunology: Negative for hives, rash, and allergies, Endocrine: Negative for neck swelling, polydipsia, polyuria, polyphagia, and marked weight changes, 23:01 : Positive for vaginal bleeding, Exam: 23:01 Constitutional: This is a well developed, well nourished patient who is awake, alert, gary and in no acute distress. Head/Face: Normocephalic, atraumatic. Eyes: Pupils equal round and reactive to light, extra-ocular motions intact. Lids and lashes normal. Conjunctiva and sclera are non-icteric and not injected. Cornea within normal limits. Periorbital areas with no swelling, redness, or edema. ENT: Nares patent. No nasal discharge, no septal abnormalities noted. Tympanic membranes are normal and external auditory canals are clear. Oropharynx with no redness, swelling, or masses, exudates, or evidence of obstruction, uvula midline. Mucous membranes moist. Neck: Trachea midline, no thyromegaly or masses palpated, and no cervical lymphadenopathy. Supple, full range of motion without nuchal rigidity, or vertebral point tenderness. No Meningismus. Chest/axilla: Normal chest wall appearance and motion. Nontender with no deformity. No lesions are appreciated. Cardiovascular: Regular rate and rhythm with a normal S1 and S2. No gallops, murmurs, or rubs. Normal PMI, no JVD. No pulse deficits. Respiratory: Lungs have equal breath sounds bilaterally, clear to auscultation and percussion. No rales, rhonchi or wheezes noted. No increased work of breathing, no retractions or nasal flaring. Abdomen/GI: Soft, non-tender, with normal bowel sounds. No distension or tympany. No guarding or rebound. No evidence of tenderness throughout. Back: No spinal tenderness. No costovertebral tenderness. Full range of motion. Skin: Warm, dry with normal turgor. Normal color with no rashes, no lesions, and no evidence of cellulitis. MS/ Extremity: Pulses equal, no cyanosis. Neurovascular intact. Full, normal range of motion., bilateral aka Neuro: Awake and alert, GCS 15, oriented to person, place, time, and situation. Cranial nerves II-XII grossly intact. Motor strength 5/5 in all extremities. Sensory grossly intact. Cerebellar exam normal. Normal gait. Psych: Awake, alert, with orientation to person, place and time. Behavior, mood, and affect are within normal limits. 03/17 00:46 ECG was reviewed by the Attending Physician. [facility] Vital Signs: 03/16 22:44 BP 244 / 133; Pulse 89; Resp 18; Temp 99.3(O); Pulse Ox 100% on R/A; Weight 104.33 kg; al5 Height 5 ft. 4 in. ; 23:00 BP 244 / 133; Pulse 98; Resp 18; Pulse Ox 100% on R/A; kb4 23:30 BP 207 / 122; Pulse 91; Resp 18; Pulse Ox 99% on R/A; kb4 03/17 00:30 BP 222 / 145; Pulse 85; Resp 18; Pulse Ox 100% on R/A; kb4 01:00 BP 189 / 124; Pulse 75; Resp 18; Pulse Ox 98% on R/A; al5 01:30 BP 179 / 106; Pulse 92; Resp 16; Pulse Ox 100% on R/A; al5 02:00 BP 184 / 105; Pulse 92; Resp 17; Pulse Ox 99% on R/A; al5 02:30 BP 170 / 103; Pulse 95; Resp 18; Pulse Ox 100% on R/A; al5 03:00 BP 144 / 80; Pulse 92; Resp 16; Pulse Ox 100% on R/A; al5 03:30 BP 172 / 106; Pulse 87; Resp 17; Pulse Ox 98% on R/A; al5 03:52 BP 158 / 93; Pulse 89; Resp 16; Pulse Ox 100% on R/A; al5 03/16 22:44 Body Mass Index 39.48 (104.33 kg, 162.56 cm) al5 MDM: 03/16 22:32 Medical Screening Exam initiated [facility] 23:02 Data reviewed: vital signs, nurses notes, lab test result(s), radiologic studies, [facility] ultrasound. Consideration of Admission/Observation Escalation of care including admission/observation considered. I considered the following discharge prescriptions or medication management in the emergency department Medications were administered in the Emergency Department. See MAR. Independent interpretation of the following test(s) in the Emergency Department Radiology Department Ultrasound: My interpretation is VAG PROB USG. 03/16 22:34 Order name: Abo/rh Typing; Complete Time: 00:12 [facility] 03/16 22:34 Order name: Basic Metabolic Panel; Complete Time: 00:12 [facility] 03/16 22:34 Order name: CBC with Diff; Complete Time: 00:12 [facility] 03/16 22:34 Order name: Test, Urine; Complete Time: 00:12 [facility] 03/16 22:34 Order name: Quantitative Hcg; Complete Time: 00:12 [facility] 03/16 22:34 Order name: UA Rfx Nabor Cult if indicated; Complete Time: 00:12 [facility] 03/17 00:14 Order name: Troponin High Sensitivity; Complete Time: 01:08 [facility] 03/17 00:14 Order name: BNP; Complete Time: 01:08 [facility] 03/17 03:48 Order name: CBC with Automated Diff EDMS 03/17 03:48 Order name: CBC with Automated Diff EDMS 03/17 03:48 Order name: Comprehensive Metabolic Panel EDMS 03/17 03:48 Order name: Comprehensive Metabolic Panel EDMS 03/17 03:48 Order name: Troponin High Sensitivity EDMS 03/17 03:48 Order name: Troponin High Sensitivity; Complete Time: 08:06 EDMS 03/17 03:48 Order name: Troponin High Sensitivity EDMS 03/17 03:48 Order name: Troponin High Sensitivity EDMS 03/17 03:48 Order name: Troponin High Sensitivity EDMS 03/17 03:48 Order name: Troponin High Sensitivity EDMS 03/17 03:48 Order name: Troponin High Sensitivity EDMS 03/17 07:40 Order name: Comprehensive Metabolic Panel; Complete Time: 08:06 EDMS 03/17 11:08 Order name: Troponin High Sensitivity EDMS 03/16 22:34 Order name: US Transvaginal Ob; Complete Time: 08:06 [facility] 03/17 00:14 Order name: Chest Single View XRAY; Complete Time: 08:06 [facility] 03/16 22:34 Order name: IV Saline Lock; Complete Time: 23:11 [facility] 03/16 22:34 Order name: Labs collected and sent; Complete Time: 23:11 [facility] 03/16 22:34 Order name: NPO; Complete Time: 23:11 [facility] 03/17 00:14 Order name: Blood Pressure Recheck; Complete Time: 00:51 [facility] 03/17 00:14 Order name: EKG - Nurse/Tech; Complete Time: 00:51 [facility] EC/26 00:46 Rate is 82 beats/min. Rhythm is regular. QRS [place] is Normal. OR interval is normal. QRS gary interval is normal. QT interval is normal. No Q waves. T waves are Inverted in leads V5, V6. No ST changes noted. Clinical impression: NSR w/ Non-specific ST/T Changes. Interpreted by me. Reviewed by me. Administered Medications: 03/16 23:28 Drug: NS 0.9% IV 1000 ml IV at 1000 ml once; to be given as a bolus over 60 minutes al5 Route: IV; Rate: 1000 ml; Site: left antecubital; 03/17 03:47 Follow up: Response: No adverse reaction; IV Status: Completed infusion; IV Intake: al5 1000ml 00:51 Drug: Labetalol IV 20 mg IV at per protocol once over 2 mins Route: IV; Rate: per al5 protocol; Infused Over: 2 mins; Site: left antecubital; 01:12 Follow up: Response: No adverse reaction kb4 03:47 Follow up: Response: No adverse reaction; Blood pressure is unchanged; IV Status: al5 Completed infusion; IV Intake: 4ml 00:51 Drug: Labetalol PO 100 mg PO once Route: PO; al5 01:12 Follow up: Response: No adverse reaction kb4 00:51 Drug: HydrALAZINE PO 25 mg PO once Route: PO; al5 01:11 Follow up: Response: No adverse reaction kb4 01:18 Drug: hydrALAZINE IVP 20 mg IVP once Route: IVP; Site: left antecubital; kb4 03:47 Follow up: Response: No adverse reaction; Blood pressure is unchanged al5 02:28 Drug: Norvasc PO 10 mg PO once Route: PO; al5 03:54 Follow up: Response: No adverse reaction; Blood pressure is unchanged al5 03:20 Drug: MethylPrednisoLONE IVP 125 mg IVP once Route: IVP; Site: left antecubital; al5 03:55 Follow up: Response: No adverse reaction; Pain is decreased al5 03:20 Drug: morphine IVP or IV 4 mg IVP once over 4 mins Route: IVP; Infused Over: 4 mins; al5 Site: left antecubital; 03:55 Follow up: Response: No adverse reaction; Pain is decreased al5 03:20 Drug: Ondansetron IVP 4 mg IVP once; over 2 minutes Route: IVP; Site: left antecubital; al5 03:55 Follow up: Response: No adverse reaction al5 03:56 Not Given (patient bp 158/93): mg IV at per protocol once over 2 mins al5 Disposition Summary: 03/17/25 00:45 Hospitalization Ordered Notes: Hospitalization Status: Inpatient Admission gary Provider: José Boyer cha Condition: Stable gary Problem: new gary Symptoms: have improved gary Bed/Room Type: Standard gary Location: Telemetry/MedSurg (Inpatient)(03/17/25 10:00) bd Room Assignment: 208(03/17/25 10:00) bd Diagnosis - Systemic lupus erythematosus, unspecified gary - Essential (primary) hypertension gary - Other specified abnormal uterine and vaginal bleeding gary Discharge Instructions: - Discharge Summary Sheet gary - Care gary - Threatened Miscarriage gary - Vaginal Bleeding During , First Trimester gary - First Trimester of , [id number] gary - First Trimester of gary - Threatened Miscarriage, [id number]-[id number] gary - Vaginal Bleeding During , First Trimester, [id number] gary Forms: - Medication Reconciliation Form gary - SBAR form gary - Leadership Thank You Letter gary Critical care time excluding procedures: 03:20 Critical care time: Bedside Care: 30 minutes, Consultation: 10 minutes, Family gary Intervention: 10 minutes. Total time: 50 minutes Signatures: Dispatcher [employer] EDBushra De Jesus Corey, MD MD cha Basinger, Emily, RN RN eb1 Yudith Cintron PA-C PA-C sb4 Kylee Hull RN RN al5 Annel Cui RN RN kb4 Corrections: (The following items were deleted from the chart) 03/16 22:34 22:34 ABO/RH TYPING+BB.LAB.BRZ ordered. EDMS EDMS 22:34 22:34 BASIC METABOLIC PANEL+C.LAB.BRZ ordered. EDMS EDMS 22:34 22:34 CBC+H.LAB.BRZ ordered. EDMS EDMS 22:34 22:34 Test, Urine+UC.LAB.BRZ ordered. EDMS EDMS 22:34 22:34 QUANTITATIVE HCG+C.LAB.BRZ ordered. EDMS EDMS 22:34 22:34 UA Rfx Nabor Cult if indicated+U.LAB.BRZ ordered. EDMS EDMS 22:34 22:34 Transvaginal Ob+US.RAD.BRZ ordered. EDMS EDMS 03/17 00:15 00:15 Chest Single View+RAD.RAD.BRZ ordered. EDMS EDMS 00: 00:15 Troponin High Sensitivity+C.LAB.BRZ ordered. EDMS EDMS 00: 00:15 PROBNP+C.LAB.BRZ ordered. EDMS EDMS 01:30 00:45 Telemetry/MedSurg (Inpatient) gary eb1 01:30 00:45 gary eb1 10:00 01:30 [facility] ER HOLD eb1 bd 10:00 01:30 ERHOLD- eb1 bd
[2025-03-17 00:56] LABS: NT PRO-BNP 248.0 pg/mL (<125); Troponin High Sensitivity 24.2 pg/mL (<58.9)
[2025-03-17] MEDS ORDERED: HYDRALAZINE HCL 20 MG/ML VIAL ONE (01:13)
[2025-03-17] MEDS ORDERED: AMLODIPINE 10 MG TAB ONE (02:25)
[2025-03-17] MEDS ORDERED: ONDANSETRON 4 MG/2 ML VIAL ONE (03:10)
[2025-03-17] MEDS ORDERED: METHYLPREDNISOLONE 125 MG INJ ONE (03:10)
[2025-03-17] MEDS ORDERED: WATER FOR INJ,STERILE 10 ML ONE (03:11)
[2025-03-17] MEDS ORDERED: MORPHINE 4 MG/ML SYR ONE (03:11)
--- NOTE | 2025-03-17 03:42 | P.HP ---
Certification for Inpatient Patient admitted to: Inpatient With expected LOS: >2 Midnights Practitioner: I am a practitioner with admitting privileges, knowledge of patient current condition, hospital course, and medical plan of care. Services: Services provided to patient in accordance with Admission requirements found in Title 42 Section 412.3 of the Code of Federal Regulations Patient History Date of Service: 03/17/25 Reason for admission: Hypertensive emergency History of Present Illness: 44-year-old female with past medical history of Fibromyalgia; Hypertension; Lupus erythematosus; Myocardial infarction; was brought to ER with elevated blood pressure. Patient has not been taking any medications Recently. Denies any chest pain or shortness of breath. No dizziness showed Patient denies any nausea or vomiting. Patient was assessed in the ER and found to have elevated blood pressure and was admitted for further management Allergies No Known Allergies Allergy (Unverified 11/16/11 13:30) Home medications list reviewed: Yes Home Medications: Sulfamethoxazole/Trimethoprim [Bactrim Ds Tablet] 1 each PO BID #10 tablet 11/22/11 - Past Medical/Surgical History Past Medical History: Reviewed- Non-Contributory -: Fibromyalgia; Hypertension; Lupus erythematosus; Myocardial infarction; Past Surgical History: Reviewed- Non-Contributory - Social History Smoking Status: Never smoker Alcohol use: No CD- Drugs: No Caffeine use: Yes Review of Systems 10-point ROS is otherwise unremarkable Physical Examination - Vital Signs Temperature: 98.2 F Blood Pressure: 148/82 Pulse: 70 Respirations: 18 Pulse Ox (%): 94 - Physical Exam General: Alert, In no apparent distress, Oriented x3, Obese HEENT: Atraumatic, Normocephalic Neck: Supple Respiratory: Clear to auscultation bilaterally, Normal air movement Cardiovascular: Regular rate/rhythm, Normal S1 S2 Capillary refill: <2 Seconds Gastrointestinal: Soft and benign, W/out hepatosplenomegaly Musculoskeletal: No clubbing, No swelling Integumentary: No rashes, No tenderness/swelling Neurological: Normal gait, Normal speech, Normal strength at 5/5 x4 extr, Normal tone, Cranial nerves 3-12 intact, Normal reflexes 2+ Lymphatics: No axilla or inguinal lymphadenopathy - Studies Laboratory Data (last 24 hrs) 03/16/25 03/16/25 23:06 23:06 WBC 9.20 Hgb 11.4 L Hct 35.0 L Plt Count 285 Sodium 138 Potassium 3.3 L BUN 10 Creatinine 0.89 Glucose 111 H Assessment and Plan - Plan Hypertensive emergency Started on antihypertensive meds Hydralazine as needed Denies any chest pain or shortness of breath Hypokalemia On electrolytes monitor and replace accordingly Fibromyalgia; Lupus erythematosus; history of myocardial infarction Continue home medications and titrate as needed GI/DVT prophylaxis Advanced directive full code Discharge Plan: Home Plan to discharge in: 48 Hours - Advance Directives Does patient have a Living Will: No Does patient have a Durable POA for Healthcare: No - Code Status/Comfort Care Code Status: Full Code Time Spent Managing Pts Care (In Minutes): 48
[2025-03-17] MEDS ORDERED: ACETAMINOPHEN 325 MG TABLET PO PRN (03:43)
[2025-03-17] MEDS ORDERED: HYDRALAZINE HCL 20 MG/ML VIAL IV PRN (03:46)
[2025-03-17] MEDS: AMLODIPINE 5 MG TAB PO SCH (03:55)
[2025-03-17 04:58] VITALS: BMI 39.4
--- NOTE | 2025-03-17 05:38 | RAD REPORT ---
EXAM: XR Chest, 1 View CLINICAL HISTORY: COUGH TECHNIQUE: Frontal view of the chest. COMPARISON: XR Chest dated 06/10/2024 FINDINGS: Lungs: Unremarkable. No consolidation. Pleural space: Unremarkable. No pneumothorax. Heart: Unremarkable. No cardiomegaly. Mediastinum: Unremarkable. Normal mediastinal contour. Bones/joints: Unremarkable. No acute fracture. Upper abdomen: Stable mild elevation of the right hemidiaphragm. IMPRESSION: No acute disease. Electronically signed by: Jasmin Stone MD 03/17/2025 03:36 AM CDT Due to temporary technical issues with the PACS/[employer] reporting system, reports are being tesfaye d by the in-house radiologist without review as a courtesy to ensure prompt reporting the interpreting radiologist is fully responsible for the content of the report. Transcribed Date/Time: 03/17/2025 5:38 AM
--- NOTE | 2025-03-17 06:59 | RAD REPORT ---
EXAM DESCRIPTION: Transvaginal OB CLINICAL HISTORY: 44 years Female ABD CRAMPING, COMPARISON: None TECHNIQUE: Endovaginal sonography of the pelvis was performed. Study limited related to patient's body habitus. FINDINGS: Uterus is enlarged measuring 12.4 x 6.4 x 7.3 cm. No gestational sac is identified within the endomet rial cavity. Minimal fluid within the cul-de-sac. 2.7 x 1.7 x 2.2 cm heterogeneous focus involving the uterine fundus possibly small fibroid. Endometrium is thickened measuring 1.3 cm. Cervix appears closed. Right ovary not identified throughout the study. Left ovary is normal in size. Left ovarian cyst akin uring 2.6 x 2.6 x 2.5 cm. Doppler evaluation revealed satisfactory flow. IMPRESSION: Enlarged uterus with no gestational sac identified within the endometrial cavity. Correlation with be ta hCG and follow-up imaging would be needed to further evaluate early intrauterine versus ectopic or completed . Thickened endometrium. Right ovary not identified throughout the study. 2.6 cm left ovarian cyst. Minimal pelvic fluid. Electronically signed by: Joleen Horton MD 03/16/2025 11:45 PM CDT Due to temporary technical issues with the PACS/[employer] reporting system, reports are being signed by the in-house radiologist without review as a courtesy to ensure prompt reporting the interpreting radiologist is fully responsible for the content of the report. Transcribed Date/Time: 03/17/2025 6:59 AM
[2025-03-17] MEDS: POTASSIUM CL SA 10 MEQ TAB PO ONE (07:29)
[2025-03-17] MEDS ORDERED: HYDROCODONE/APAP 7.5/325 MG TAB ONE (07:33)
[2025-03-17] MEDS ORDERED: POTASSIUM CL SA 10 MEQ TAB PO ONE (07:33)
[2025-03-17 07:39] LABS: ALT/SGPT 50.0 U/L (13-56); AST/SGOT 31.0 U/L (15-37); Albumin 3.2 g/dL (3.4-5.0); Albumin/Globulin Ratio 0.9 (1.1-1.8); Alkaline Phosphatase 84.0 U/L (45-117); Anion Gap 10.7 mEq/L (5.0-15.0); BUN Blood Urea Nitrogen 12.0 mg/dL (7-18); Globulin 3.7 g/dL (2.3-3.5); Glucose Level 147.0 mg/dL (74-106); Potassium 3.7 mEq/L (3.5-5.1)
[2025-03-17] MEDS: HYDROCODONE/APAP 7.5/325 MG TAB PO ONE (07:39)
[2025-03-17] MEDS ORDERED: ENOXAPARIN 40 MG/0.4 ML SQ ONE (08:23)
[2025-03-17] MEDS ORDERED: AMLODIPINE 5 MG TAB ONE (08:23)
[2025-03-17] MEDS ORDERED: ONDANSETRON 4 MG/2 ML VIAL IV PRN (09:00)
[2025-03-17] MEDS: ENOXAPARIN 40 MG/0.4 ML SQ SCH (09:00)
[2025-03-17] MEDS ORDERED: FUROSEMIDE 20 MG/ 2ML VIAL IV SCH (09:00)
[2025-03-17 12:23] VITALS: O2SAT 100
[2025-03-17] MEDS: HYDRALAZINE HCL 20 MG/ML VIAL IV PRN (12:51)
[2025-03-17] MEDS: HYDROCODONE/APAP 5/325 MG TAB PO PRN (13:01)
[2025-03-17 16:15] VITALS: BP 161/99; TEMP 98.2
--- NOTE | 2025-03-17 17:27 | P.DS ---
Admission Date: 03/17/25 Discharge Date: 03/17/25 Disposition: ROUTINE DISCHARGE Discharge Condition: GOOD Reason for Admission: Hypertensive emergency Brief History of Present Illness: 44-year-old female with past medical history of Fibromyalgia; Hypertension; Lupus erythematosus; Myocardial infarction; was brought to ER with elevated blood pressure. Patient has not been taking any medications Recently. Denies any chest pain or shortness of breath. No dizziness showed Patient denies any nausea or vomiting. Patient was assessed in the ER and found to have elevated blood pressure and was admitted for further management Hospital Course: Hypertensive Urgency Hypokalemia Fibromyalgia; Lupus erythematosus; Patient was admitted to the hospital initially for hypertensive urgency. When she presented to the emergency department she was having a small mount of vaginal spotting/bleeding and severe abdominal cramping that she compares to contractions. She thought that she was but had not taken a test try thing at home. Patient was evaluated in the emergency department her urine test was negative, beta-hCG was less than 1 and transvaginal ultrasound was performed which showed an enlarged uterus with no gestational sac identified. Thickened endometrium. Upon arrival to the ED patient blood pressure was markedly elevated at 244/133, she reports that she has been without her blood pressure medication for the last year or more as she did not have insurance. She was admitted for hypertensive urgency. High sensitivity troponins were performed serially and negative x 3, chest x-ray was also performed and negative for acute findings. She is started on amlodipine and Coreg during her hospitalization, her blood pressure has improved to 160s over 90s at this time. Patient stable for discharge and outpatient follow-up with her primary care doctor, will provide prescription for amlodipine and Coreg. Patient likely require further titration of her blood pressure medications by her PCP. Vital Signs/Physical Exam: Temp Pulse Resp BP Pulse Ox 98.2 F 102 H 20 161/99 H 96 03/17/25 16:00 03/17/25 16:00 03/17/25 16:00 03/17/25 16:00 03/17/25 16:00 General: Alert, In no apparent distress, Oriented x3 HEENT: Atraumatic, PERRLA Neck: Supple, JVD not distended Respiratory: Clear to auscultation bilaterally, Normal air movement Cardiovascular: Regular rate/rhythm, Normal S1 S2 Gastrointestinal: Normal bowel sounds, No tenderness Musculoskeletal: No tenderness Integumentary: No rashes Neurological: Normal speech, Normal affect Laboratory Data at Discharge: WBC 9.20 thou/uL (4.3-10.9) 03/16/25 23:06 Hgb 11.4 g/dL (12.0-15.0) L 03/16/25 23:06 Hct 35.0 % (36.0-45.0) L 03/16/25 23:06 Plt Count 285 thou/uL (152-406) 03/16/25 23:06 Sodium 138 mEq/L (136-145) 03/17/25 05:57 Potassium 3.7 mEq/L (3.5-5.1) 03/17/25 05:57 BUN 12 mg/dL (7-18) 03/17/25 05:57 Creatinine 0.75 mg/dL (0.55-1.02) 03/17/25 05:57 Glucose 147 mg/dL (74-106) H 03/17/25 05:57 Total Bilirubin 0.2 mg/dL (0.2-1.0) 03/17/25 05:57 AST 31 U/L (15-37) 03/17/25 05:57 ALT 50 U/L (13-56) 03/17/25 05:57 Alkaline Phosphatase 84 U/L (45-117) 03/17/25 05:57 Home Medications: Amlodipine [Norvasc*] 10 mg PO DAILY #30 tab 03/17/25 carvediloL [Carvedilol] 6.25 mg PO BID #60 tab 03/17/25 New Medications: carvediloL [Carvedilol] 6.25 mg PO BID #60 tab Amlodipine [Norvasc*] 10 mg PO DAILY #30 tab Physician Discharge Instructions: Patient was admitted to the hospital initially for hypertensive urgency. When she presented to the emergency department she was having a small mount of vaginal spotting/bleeding and severe abdominal cramping that she compares to contractions. She thought that she was but had not taken a test try thing at home. Patient was evaluated in the emergency department her urine test was negative, beta-hCG was less than 1 and transvaginal ultrasound was performed which showed an enlarged uterus with no gestational sac identified. Thickened endometrium. Upon arrival to the ED patient blood pressure was markedly elevated at 244/133, she reports that she has been without her blood pressure medication for the last year or more as she did not have insurance. She was admitted for hypertensive urgency. High sensitivity troponins were performed serially and negative x 3, chest x-ray was also performed and negative for acute findings. She is started on amlodipine and Coreg during her hospitalization, her blood pressure has improved to 160s over 90s at this time. Patient stable for discharge and outpatient follow-up with her primary care doctor, will provide prescription for amlodipine and Coreg. Patient likely require further titration of her blood pressure medications by her PCP. Diet: AHA Activity: Ad jazlyn Followup: Leda Farrell MD [Primary Care Provider] - 1-2 Weeks Time spent managing pt's care (in minutes): 38
== END 2025-03-17 18:38 | disposition home or self-care (01) | DRG 305 ==
LOC: ER 22:19 → ERHOLD 03-17 03:43 → 2ND 03-17 10:13
PROVIDERS: ADMIT Family Medicine; ATTEND Hospitalist
DX: I16.1 Hypertensive emergency (principal); E87.6 Hypokalemia; N93.9 Abnormal uterine and vaginal bleeding, unspecified; I10 Essential (primary) hypertension; E66.9 Obesity, unspecified; M79.7 Fibromyalgia; M32.9 Systemic lupus erythematosus, unspecified; I25.2 Old myocardial infarction; F17.210 Nicotine dependence, cigarettes, uncomplicated; Z68.39 Body mass index [BMI] 39.0-39.9, adult; Z91.148 Patient's other noncompliance with medication regimen for other reason
CPT/HCPCS: 36415; 71045; 76817; 80048; 80053; 81001; 81025; 83880; 84484; 84702; 85025; 86900; 86901; 93005; J0360; J1650; J2405; J2919; J7030